=== PATIENT | female | born 2000 | race Caucasian/White ===

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

== ENCOUNTER 2022-01-11 20:00 | Emergency (ER) | payer OTHER, SELFPAY ==
--- NOTE | ~2022-01-11 | CT_ITS ---
EXAMINATION: CT BRAIN W/O DATE: 01/11/2022 20:59 INDICATION: Left frontal headache. Dizziness. Tinnitus. Eye blurriness. TECHNIQUE: Computed tomography (CT) of the head was performed without intravenous contrast. The dose- length product was 605.33 mGy-cm. Automated exposure control and iterative reconstruction technique w ere employed. COMPARISON: No prior studies for comparison. FINDINGS: Normal brain parenchymal volume for age. Normal pérez-white differentiation. No acute intrac ranial hemorrhage, infarction, mass or mass effect. No ventriculomegaly or midline shift. Midline sagittal images demonstrate a normal corpus callosum, c raniovertebral junction and sella turcica. Basilar cisterns are patent. Paranasal sinuses and mastoids are pneumatized. No depressed skull fractures. IMPRESSION: 1. No acute intracranial abnormality. Reviewed, dictated and finalized at location A.
[2022-01-11 20:14] VITALS: BP 109/82; PULSE 90; RESP 16; TEMP 36.4; O2SAT 98
--- NOTE | 2022-01-11 20:46 | ED.HA ---
HPI - Headache General Chief Complaint: Headache Stated Complaint: hit head with car door Time Seen by Provider: 01/11/22 20:04 Source: patient and RN notes reviewed Mode of arrival: ambulatory Limitations: no limitations History of Present Illness MD elicited complaint: headache Pertinent past history: recent trauma (hit left forehead with car door. no LOC, mild persistent HIRSCH , blurred vision left eye and ringing in the left ear) Onset (ago): hour(s) (5) Time: 14:00 Onset description: suddenly Location: left and frontal Severity: mild Pain scale (0-10): 6 Quality & Timing: dull Exacerbating factors: none Relieving factors: nothing Context: recent head injury Treatments prior to arrival: ibuprofen (200mg) Related Data Home Medications Medication Instructions Recorded Confirmed norethindrone 1 mg-ethinyl 1 tablet PO DAILY 04/06/21 01/11/22 estradiol 20 mcg (24)-iron 75 mg (4) tablet (Aurovela 24 Fe) Allergies Allergy/AdvReac Type Severity Reaction Status Date / Time cat dander Allergy Intermediate SNEEZE, Verified 01/11/22 20:13 ITCH, RASHES, EYES WATER, THROAT HURTS bee venom protein (honey bee) Allergy Anaphylactic Verified 01/11/22 20:13 Shock chocolate flavor AdvReac Migraine Verified 01/11/22 20:13 Review of Systems Review of Systems: All systems reviewed & are unremarkable except as noted in HPI and below Constitutional: Constitutional: Reports no additional constitutional complaints Eyes: Eyes: Reports no additional eye complaints ENT: Reports system reviewed and no additional complaints, except as documented Cardiovascular: Cardiovascular: Reports no additional cardiovascular complaints Respiratory: Respiratory: Reports no additional respiratory complaints Gastrointestinal: Gastrointestinal: Reports no additional gastrointestinal complaints Genitourinary: Genitourinary: Reports no additional female genitourinary complaints Musculoskeletal: Musculoskeletal: Reports no additional musculoskeletal complaints Integumentary/Breasts: Skin/Breast: Reports system reviewed and no additional complaints, except as docu Neurologic: Reports system reviewed and no additional complaints, except as documented Psychiatric: Psychiatric: Reports no additional psychiatric complaints Endocrine: Endocrine: Reports no additional endocrine complaints Hematologic/Lymphatic: Hematologic/Lymphatic: Reports no additional hematologic/lymphatic complaints Allergic/Immunologic: Allergic/Immunologic: Reports no additional allergic/immunologic complaints [facility] Past Medical History Medical History (Updated 07/10/22 @ 21:21 by Nita Sidhu MD) Anxiety Head injury Headache Left wrist sprain (normal spontaneous vaginal delivery) Scoliosis Toe fracture, right Wrist fracture, left (06/13/19) Surgical History Surgical History History of removal of skin mole lt temporal, June 2015 Family History Family History (Updated 12/25/21 @ 00:31 by Mable Mathis APRN) Other Diabetes mellitus No pertinent family history Social History Social History Smoking status: Former smoker Additional smoking assessment comments: Pt and significant other vaped. Significant other also stopped vaping 2-3 Alcohol intake: current Substance use: never Substance use type: does not use Gender identity (if verbalized by the patient): Female Spiritual care concerns: No Exam Const: General: healthy appearing and no acute distress Nutritional Appearance: well nourished Orientation/consciousness: patient oriented x3 Limitations: no limitations HENMT: Head: normal to inspection and hematoma (1/2 cm diameter hematoma left forehead, no discoloration. TMs were dull.) Ears: external ears normal, TM's abnormal bilaterally and EAC's normal Gene
--- NOTE | 2022-01-11 20:54 | PC.NURSE ---
pt declines medication because i'm not good at taking pills pt reminded that medication was to make her feel better
== END 2022-01-11 21:31 | disposition home or self-care (01) ==
PROVIDERS: Emergency Provider Emergency Medicine; PCP Family Medicine
DX: S09.90XA Unspecified injury of head, initial encounter (principal); R51.9 Headache, unspecified; W22.8XXA Striking against or struck by other objects, initial encounter
CPT/HCPCS: 70450; 99284

== ENCOUNTER 2022-01-22 11:53 | Emergency (ER) | payer OTHER, SELFPAY ==
[2022-01-22 12:01] VITALS: BP 110/74; PULSE 113; RESP 20; TEMP 37.6; O2SAT 98
--- NOTE | 2022-01-22 12:20 | ED.URI ---
HPI - URI/Sore Throat General Chief Complaint: Upper Respiratory Infection Stated Complaint: bodyache, chill,sore throat Time Seen by Provider: 01/22/22 12:05 Source: patient Mode of arrival: ambulatory Limitations: no limitations History of Present Illness HPI Narrative: Ms. Marcum is a 21-year-old female patient presenting to the clinic today with complaints of body aches, sore throat, chills, nasal congestion, and bilateral ear pain x1 day. She reports that she has had positive exposure to COVID. She has taken a COVID test this morning and it was negative at work. She feels as though she may have strep throat as she gets this frequently. MD elicited complaint: sore throat and nasal congestion Related Data Home Medications Medication Instructions Recorded Confirmed norethindrone 1 mg-ethinyl 1 tablet PO DAILY 04/06/21 01/22/22 estradiol 20 mcg (24)-iron 75 mg (4) tablet (Aurovela 24 Fe) Allergies Allergy/AdvReac Type Severity Reaction Status Date / Time cat dander Allergy Intermediate SNEEZE, Verified 01/22/22 12:01 ITCH, RASHES, EYES WATER, THROAT HURTS bee venom protein (honey bee) Allergy Anaphylactic Verified 01/22/22 12:01 Shock chocolate flavor AdvReac Migraine Verified 01/22/22 12:01 Review of Systems Review of Systems: Pertinent positives per HPI. Patient denies any fever, rash, headache, visual changes, dizziness, cough, shortness of breath, chest pain, palpitations, nausea, vomiting, diarrhea, constipation, abdominal pain, or any urinary issues. [facility] Past Medical History Medical History Anxiety Head injury Headache Left wrist sprain (normal spontaneous vaginal delivery) Scoliosis Toe fracture, right Wrist fracture, left (06/13/19) Surgical History Surgical History History of removal of skin mole lt temporal, June 2015 Family History Family History Other Diabetes mellitus No pertinent family history Social History Social History Smoking status: Former smoker Additional smoking assessment comments: Pt and significant other vaped. Significant other also stopped vaping 2-3 Alcohol intake: current Substance use: never Substance use type: does not use Gender identity (if verbalized by the patient): Female Spiritual care concerns: No Comments At the time of my signature, I reviewed and agree with the nursing past medical, surgical, social, and family history. There is no relevant family history pertinent to the patient complaint. Exam Narrative: General: Well-developed, well nourished, in no apparent distress Head: Normocephalic, atraumatic Eyes: Pupils equally round and reactive to light bilaterally, EOM intact, sclera and conjunctive clear, no discharge, lids normal Ears: TMs intact and dull, ear canals clear, no drainage, grossly hearing normal. Nose: Nares patent, clear nasal discharge, mild inflammation, no sinus tenderness. Mouth: Oral pharynx without lesions or masses, good dentition, MMM. Oropharynx mildly red, postnasal drip Neck: Supple, trachea midline, no enlargement of anterior or posterior cervical nodes, no thyroid masses or goiter palpable. Cardio: Regular rate and rhythm, s1 and s2 normal, no murmur appreciated. Resp: Clear to auscultation bilaterally, no rhonchi, rales, wheezing or rubs Course Course Emergency Course: Portions of this record may have been created with voice recognition software. Level of Care: Express Care Visit Vital Signs Vital signs: Vital Signs Temperature 37.6 C 01/22/22 12:01 Pulse Rate 113 H 01/22/22 12:01 Respiratory Rate 20 01/22/22 12:01 Blood Pressure 110/74 01/22/22 12:01 Pulse Oximetry 98
== END 2022-01-22 12:28 | disposition home or self-care (01) ==
PROVIDERS: Emergency Provider Nurse Practitioner Family; PCP Family Medicine
DX: J02.9 Acute pharyngitis, unspecified (principal); B34.9 Viral infection, unspecified; Z20.822 Contact with and (suspected) exposure to COVID-19; F17.290 Nicotine dependence, other tobacco product, uncomplicated; M41.9 Scoliosis, unspecified
CPT/HCPCS: 87081; 87880; 99213; G0463

== ENCOUNTER 2022-02-25 03:16 | Emergency (ER) | payer OTHER, SELFPAY ==
[2022-02-25 03:11] VITALS: BP 123/77; PULSE 113; RESP 18; TEMP 36.7; O2SAT 100
--- NOTE | 2022-02-25 03:45 | PC.NURSE ---
Patient stated to this RN, I need to be out of here by 0530 to be able to get home so that my boyfriend can get to work My chest pain has gone away I might just be seen by someone else later today/.
--- NOTE | 2022-02-25 03:49 | ECG_ITS ---
Measurements Intervals [place] Rate: 89 P: 31 RI: 132 QRS: 67 QRSD: 101 T: 25 QT: 354 QTc: 432 Interpretive Statements SINUS RHYTHM RSR' IN V1 OR V2, PROBABLY NORMAL VARIANT NONSPECIFIC T-WAVE ABNORMALITY BORDERLINE ECG NO PREVIOUS ECG AVAILABLE FOR COMPARISON Electronically Signed On 02-25-2022 16:04:59 CDT by Andres Ha M.D.
[2022-02-25 04:07] VITALS: PULSE 99
--- NOTE | 2022-02-25 04:23 | ED.CHESTPAIN ---
HPI - Chest Pain General Chief Complaint: Chest Pain Stated Complaint: heavy chest Time Seen by Provider: 02/25/22 04:23 Source: patient and EMS Mode of arrival: ambulatory Limitations: no limitations History of Present Illness HPI narrative: The patient is a 21-year-old female presenting to the emergency department for evaluation of chest pain. Patient states that she was watching videos on her phone this evening when she began to feel a burning sensation in her lower chest, with mild radiation into the left shoulder. Patient denies any pressure-like sensation, redness of breath or diaphoresis. Patient did experience some nausea, states that she went to the bathroom and made herself vomit which did help improve her symptoms. Patient denies any abdominal pain, flank pain, dysuria, hematuria. Patient states that she is not currently taking control although that is listed on her medication list. She denies unilateral leg swelling or calf pain. She denies recent long car or air travel or history of known symptomatic COVID infection. Patient denies history of coagulopathy. Patient states that her pain is now completely resolved. She is wishing to leave and does not wish to have any laboratory work-up obtained. Related Data Home Medications Medication Instructions Recorded Confirmed norethindrone 1 mg-ethinyl 1 tablet PO DAILY 04/06/21 01/22/22 estradiol 20 mcg (24)-iron 75 mg (4) tablet (Aurovela 24 Fe) Allergies Allergy/AdvReac Type Severity Reaction Status Date / Time cat dander Allergy Intermediate SNEEZE, Verified 01/22/22 12:01 ITCH, RASHES, EYES WATER, THROAT HURTS bee venom protein (honey bee) Allergy Anaphylactic Verified 01/22/22 12:01 Shock chocolate flavor AdvReac Migraine Verified 01/22/22 12:01 Review of Systems Review of Systems: CONSTITUTIONAL: Denies fever, chills, or sweats. EYES: Denies visual changes, redness, or discharge. ENT: Denies rhinorrhea, congestion, sore throat, or otalgia. CARDIOVASCULAR: Denies current chest pain, palpitations, or edema. RESPIRATORY: Denies cough or dyspnea. GASTROINTESTINAL: Denies abdominal pain, nausea, vomiting, or diarrhea. GENITOURINARY: Denies dysuria or hematuria. SKIN: Denies rash or itching. MUSCULOSKELETAL: Denies back pain, joint pain, or myalgia. NEUROLOGIC: Denies headache, numbness, or weakness. PSYCHIATRIC: Reports history of anxiety PMFSH Past Medical History Medical History Anxiety Head injury Headache Left wrist sprain (normal spontaneous vaginal delivery) Scoliosis Toe fracture, right Wrist fracture, left (06/13/19) Surgical History Surgical History History of removal of skin mole lt temporal, June 2015 Family History Family History Other Diabetes mellitus No pertinent family history Social History Social History Smoking status: Former smoker Additional smoking assessment comments: Pt and significant other vaped. Significant other also stopped vaping 2-3 Alcohol intake: current Substance use: never Substance use type: does not use Gender identity (if verbalized by the patient): Female Spiritual care concerns: No Exam Narrative: GENERAL: Awake, alert, conversant HEAD: Normocephalic, atraumatic. EYES: PERRLA and EOMI. ENT: Nares clear, no rhinorrhea or epistaxis. Mucous membranes moist. NECK: Supple. CHEST: No respiratory distress, breathing even and non labored, no chest wall tenderness, lungs are clear to auscultation bilaterally HEART: Regular rate, sinus rhythm ABDOMEN:Non distended, non tender EXTREMITIES: Normal range of motion. No edema. No calf tenderness, erythema bilaterally. SKIN: Warm, dry, no rash. NEURO:No focal deficits. Al
--- NOTE | 2022-02-25 04:44 | PC.NURSE ---
Pt insistent on leaving ED due to child being left at home alone within the hour. PT educated on risk and benefits by Dr. Brice prior to signing AMA paper work. Pt cooperative, A&Ox4, resp even non-labored. Pt denies pain or distress at this time. Pt verbalizes schedule appointment in am with PCP to f/u.
[2022-02-25 04:46] VITALS: BP 128/78; PULSE 87; RESP 12; TEMP 36.8; O2SAT 98
== END 2022-02-25 04:44 | disposition left against medical advice (07) ==
PROVIDERS: Emergency Provider Emergency Medicine; PCP Family Medicine
DX: R07.89 Other chest pain (principal); Z87.891 Personal history of nicotine dependence; R94.31 Abnormal electrocardiogram [ECG] [EKG]
CPT/HCPCS: 81025; 93005; 99284

== ENCOUNTER 2022-05-11 10:11 | Emergency (ER) | payer OTHER, SELFPAY ==
--- NOTE | ~2022-05-11 | XR_ITS ---
EXAMINATION: XR ankle LT min 3V DATE: 05/11/2022 10:30 INDICATION: Left ankle pain TECHNIQUE: Three views of the left ankle were obtained. COMPARISON: None. FINDINGS: There is no fracture, dislocation, or subluxation. The bones, soft tissues, and joint space s are normal. IMPRESSION: 1. No acute osseous abnormality. Reviewed, dictated and finalized at location B. AL SERVICE WINDOW CLERK
--- NOTE | ~2022-05-11 | XR_ITS ---
EXAMINATION: XR foot LT min 3V DATE: 05/11/2022 10:30 INDICATION: Left foot pain TECHNIQUE: Dorsoplantar, lateral, and oblique views of the left foot were obtained. COMPARISON: None. FINDINGS: There is no fracture, dislocation, or subluxation. The bones, soft tissues, and joint space s are normal. IMPRESSION: 1. No acute osseous abnormality. Reviewed, dictated and finalized at location B. LE SPINDLE SCREW MACHINE OPERATOR
[2022-05-11 10:19] VITALS: BP 105/72; PULSE 70; RESP 16; TEMP 37.3; O2SAT 100
--- NOTE | 2022-05-11 11:13 | ED.LOWEXIN ---
HPI - Extremity Injury (Lower) General Chief Complaint: Extremity Injury, Lower Stated Complaint: lt knee/foot injury Source: patient Mode of arrival: ambulatory Limitations: no limitations History of Present Illness HPI Narrative: 21 y/o female presented for c/o left ankle pain after injury yesterday. States she fell while walking up the stairs, causing her foot to bend backwards and she heard a 'pop.' She has taken ibuprofen and applied ice with minimal relief. Endorses feeling numbness to the foot and decreased ROM to the ankle due to pain. Denies significant bruising or swelling. Ambulating without difficulty but reports pain shooting up the leg. 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 She has not applied the boot. States she was instructed to get evaluated prior to the ortho appt. Related Data Home Medications Medication Instructions Recorded Confirmed norethindrone 1 mg-ethinyl 1 tablet PO DAILY 04/06/21 01/22/22 estradiol 20 mcg (24)-iron 75 mg (4) tablet (Aurovela 24 Fe) Allergies Allergy/AdvReac Type Severity Reaction Status Date / Time cat dander Allergy Intermediate SNEEZE, Verified 03/05/22 10:50 ITCH, RASHES, EYES WATER, THROAT HURTS bee venom protein (honey bee) Allergy Anaphylactic Verified 03/05/22 10:50 Shock chocolate flavor AdvReac Migraine Verified 03/05/22 10:50 Review of Systems Review of Systems: CONSTITUTIONAL: Denies body aches, fever, chills CARDIOVASCULAR: Denies chest pain, palpitations, or edema. RESPIRATORY: Denies cough or dyspnea. MUSCULOSKELETAL:per HPI NEUROLOGIC: Denies headache, numbness, tingling, or weakness. All systems reviewed & are unremarkable except as noted in HPI and below PMFSH Past Medical History Medical History Anxiety Head injury Headache Left wrist sprain (normal spontaneous vaginal delivery) Scoliosis Toe fracture, right Wrist fracture, left (06/13/19) Surgical History Surgical History History of removal of skin mole lt June 2015 Family History Family History Other Diabetes mellitus No pertinent family history Social History Social History Smoking status: Former smoker Additional smoking assessment comments: Pt and significant other vaped. Significant other also stopped vaping 2-3 Alcohol intake: current Substance use: never Substance use type: does not use Gender identity (if verbalized by the patient): Female Spiritual care concerns: No Comments At time of signature, I have reviewed and agree with nursing past medical, surgical, social and family history unless otherwise noted. Please see nursing chart for further information. There is no relevant family history pertinent to the presenting complaint Exam Narrative: GENERAL: Well-appearing, well-nourished, and in no acute distress. CHEST: Speaks in full sentences. No respiratory distress. HEART: Regular rate and rhythm. Normal and equal peripheral pulses. EXTREMITIES: Left ankle TTP anterior/dorsal aspect. Left foot has decreased sensation with 2 point discrimination to plantar surface at MTP site and toes; limited active ankle range of motion due to reports of pain. No edema or ecchymosis. No open wounds or obvious deformity; pulse palpable and equal bilaterally, skin warm, dry, pink. Capillary refill less than 3 seconds. SKIN: Warm, dry, no rash. NEURO: Alert and oriented x3. Course Course Emergency Course: Patient is aware of diagnosis, understands and agrees to treatment plan. Anticipatory guidance given. Patient agrees to follow-up as directed and is aware of reasons to seek car
== END 2022-05-11 11:29 | disposition home or self-care (01) ==
PROVIDERS: Emergency Provider Nurse Practitioner Family; PCP Family Medicine
DX: M25.572 Pain in left ankle and joints of left foot (principal); M41.9 Scoliosis, unspecified; Z87.891 Personal history of nicotine dependence
CPT/HCPCS: 73610; 73630; 99213; G0463

== ENCOUNTER 2022-10-19 11:33 | Emergency (ER) | payer OTHER, SELFPAY ==
--- NOTE | ~2022-10-19 | CT_ITS ---
CT of the Abdomen and Pelvis: Indication: Abdominal pain Technique: 2.5 mm axial scans were obtained through the abdomen and pelvis following intravenous adm inistration of 100 cc of Omnipaque 350. Dose reduction technique was used on this scan by utilizing a utomated exposure control and iterative reconstruction technique. The dose-length product (DLP) was 2 89.17 mGy-cm. Findings: Scans through the lung bases are unremarkable. The liver, spleen, pancreas, gallbladder, adrenals and kidneys are within normal limits. No evidence of aortic aneurysm. No lymphadenopathy. Questionable mild large bowel wall thickening. No bowel obstruction. No abscess or free air. Images through the pelvis were performed. Urinary bladder unremarkable. No adnexal mass evident. No a scites. Impression: Questionable mild large bowel wall thickening. Correlate for underdistention versus any possibility o f infectious/inflammatory colitis. Reviewed, dictated and finalized at [facility]. Impression: Questionable mild large bowel wall thickening. Correlate for underdistention ve rsus any possibility of infectious/inflammatory colitis.
[2022-10-19 11:43] VITALS: BP 119/92; PULSE 104; RESP 16; TEMP 36.8; O2SAT 100
[2022-10-19 12:10] LABS: Basophils Absolute Auto 0.1 K/mm3 (0.0-0.1); Basophils Percent Auto 0.4 % (0.2-1.2); Eosinophils Percent Auto 0.1 % (0-4.4); Hematocrit 45.9 % (37.0-47.0); Hemoglobin 15.8 g/dL (12.0-15.0); Immature Granulocyte Absolute 0.12 K/mm3 (0.00-0.031); Immature Granulocyte Percent A 0.6 % (0-0.5); Lymphocytes Absolute Auto 1.01 K/mm3 (0.9-3.2); Lymphocytes Percent Auto 4.7 % (18.3-44.2); Mean Corpuscular HGB Conc 34.4 g/dl (32-36); Mean Corpuscular Hemoglobin 28.8 pg (26-34); Mean Corpuscular Volume 83.6 fl (80-100); Mean Platelet Volume 11.1 fl (7.4-10.4); Monocytes Absolute Auto 1.1 K/mm3 (0.1-0.6); Monocytes Percent Auto 4.9 % (2.6-8.5); Neutrophils Absolute Auto 19.1 K/mm3 (1.3-6.7); Neutrophils Percent Auto 89.3 % (45.5-73.1); Platelet Count Result 288 k/mm3 (150-375); Red Blood Count 5.49 M/mm3 (4.2-5.4); Red Cell Distribution Width 13.2 % (11.5-14.5); White Blood Count 21.4 K/mm3 (4.5-10.0)
[2022-10-19 12:14] LABS: Appearance Urine Clear (Clear); Bacteria Urine None Seen /hpf; Bilirubin Urine Negative (Negative); Blood Urine Negative (Negative); Color Urine Yellow (Yellow); Glucose Urine UA Negative (Negative); Ketones Urine Negative (Negative); Leukocyte Esterase Ur Trace LEU/UL (Negative); Nitrate Urine Negative (Negative); Non Pathogenic Casts 0-2; Protein Urine Negative (Negative); RBC Urine 0-2 /hpf (0-2); Specific Grav Ur 1.024 (1.001-1.035); Squamous Epithelial Cell Urine None seen /hpf (Few); WBC Urine 0-5 /hpf; pH Urine 6.5 (5.0-9.0)
[2022-10-19 12:24] LABS: Alanine Aminotransferase 24 U/L (6-35); Alkaline Phosphatase 84 U/L (38-126); Anion Gap 6 mmol/L (8-16); Aspartate Amino Transferase 25 U/L (14-36); Bilirubin,Total 0.9 mg/dL (0.2-1.3); Blood Urea Nitrogen 10 mg/dL (7-17); Calcium 9.2 mg/dL (8.4-10.2); Carbon Dioxide 30 mmol/L (22-30); Chloride 102 mmol/L (98-107); Estimated CRCL calculation 105 ml/min; Estimated Glomerular Filt Rate > 60; Glucose 102 mg/dL (65-110); Lipase 122 U/L (23-300); Potassium 3.7 mmol/L (3.4-5.0); Sodium 138 mmol/L (137-145)
[2022-10-19 12:27] LABS: Add Urine Microscopic? YES
[2022-10-19] MEDS: SODIUM CHLORIDE 0.9% IV 2,000 ML 999 ML IV CONT (12:48)
[2022-10-19] MEDS: ONDANSETRON INJ 4 MG/2 ML VIAL IV PUSH ×2 (12:48→15:13)
--- NOTE | 2022-10-19 13:45 | ED.NAVMDI ---
HPI - Nausea/Vomiting/Diarrhea General Chief complaint: Nausea/Vomiting/Diarrhea Stated complaint: N/V/D Time Seen by Provider: 10/19/22 12:15 Source: patient Mode of arrival: ambulatory Limitations: no limitations History of Present Illness HPI Narrative: Patient is 22 years old white female drove herself to the emergency room because of sudden onset of nausea, vomiting and diarrhea. Patient reports vomiting maximum 6 time, diarrhea maximum 3 times started last night. She denies any fever, chills, abdominal pain, urinary symptoms, vaginal bleeding or discharge. Patient denied sick contact. Patient works cleaning houses. She denies smoking, drinking or using drugs. Related Data Home Medications Medication Instructions Recorded Confirmed norethindrone 1 mg-ethinyl 1 tablet PO DAILY 04/06/21 05/12/22 estradiol 20 mcg (24)-iron 75 mg (4) tablet (Aurovela 24 Fe) Allergies Allergy/AdvReac Type Severity Reaction Status Date / Time cat dander Allergy Intermediate SNEEZE, Verified 10/19/22 11:52 ITCH, RASHES, EYES WATER, THROAT HURTS bee venom protein (honey bee) Allergy Anaphylactic Verified 10/19/22 11:52 Shock chocolate flavor AdvReac Migraine Verified 10/19/22 11:52 Review of Systems Review of Systems: All systems reviewed & are unremarkable except as noted in HPI and below PMFSH Past Medical History Medical History Anxiety Head injury Headache Left wrist sprain (normal spontaneous vaginal delivery) Other sprain of left foot, initial encounter Scoliosis Toe fracture, right Wrist fracture, left (06/13/19) Surgical History Surgical History History of removal of skin mole lt June 2015 Family History Family History Other Diabetes mellitus No pertinent family history Social History Social History Smoking status: Former smoker Additional smoking assessment comments: Pt and significant other vaped. Significant other also stopped vaping 2-3 Alcohol intake: current Substance use: never Substance use type: does not use Gender identity (if verbalized by the patient): Female Spiritual care concerns: No Exam Narrative: General appearance: Well-developed, well-nourished Skin: Normal color Head: Normocephalic, nontraumatic Eyes: Clear conjunctiva ENT: Oropharynx normal, ears normal, nose normal Neck: Supple, nontender Chest and respiratory: Airway patent, no respiratory distress, no accessory muscle use Heart: Regular rate/rhythm Abdomen: Soft, nontender, no organomegaly, quiet bowel sounds Vascular: Normal peripheral pulses, normal capillary refill. Musculoskeletal: Normal range of motion, nontender back Neurologic: Alert and oriented ?3, MANAGER DOCUMENT is normal as tested, no gross motor deficit Course Reevaluation(s) Reevaluation #1: Patient received 2 L of normal saline, Zofran IV, currently feeling much better and was able to give fluids and crackers down. Date: 10/19/22 Time: 14:05 Vital Signs Vital signs: Vital Signs Temperature 36.8 C 10/19/22 11:43 Pulse Rate 104 H 10/19/22 11:43 Respiratory Rate 16 10/19/22 11:43 Blood Pressure 119/92 H 10/19/22 11:43 Pulse Oximetry 100 10/19/22 11:43 Oxygen Delivery Room Air 10/19/22 11:43 Temperature 36.8 C 10/19/22 11:43 Pulse Rate 104 H 10/19/22 11:43 Respiratory Rate 16 10/19/22 11:43 Blood Pressure 119/92 H 10/19/22 11:43 Pulse Oximetry 100 10/19/22 11:43 Oxyg
== END 2022-10-19 15:22 | disposition home or self-care (01) ==
PROVIDERS: Emergency Medicine; Emergency Provider Emergency Medicine; PCP Family Medicine
DX: K52.9 Noninfective gastroenteritis and colitis, unspecified (principal); Z87.891 Personal history of nicotine dependence
CPT/HCPCS: 36415; 74177; 80053; 81001; 81025; 83690; 85025; 96361; 96374; 96375; 99284; J2405; J7030; Q9967

== ENCOUNTER 2022-10-27 19:23 | Emergency (ER) | payer OTHER, SELFPAY ==
--- NOTE | ~2022-10-27 | CT_ITS ---
EXAMINATION: CT abdomen pelvis w con DATE: 10/27/2022 22:44 INDICATION: LLQ abd pain, N/V/D TECHNIQUE: Computed tomography (CT) of the abdomen and pelvis was performed with 100 mL Omnipaque-350 intravenous contrast. Automated exposure control and iterative reconstruction technique were employe d. The dose-length product was 279.21 mGy-cm. COMPARISON: 10/19/2022. FINDINGS: Lower thorax: Mild dependent atelectasis Liver: Normal. Biliary/Gallbladder: Gallbladder is normal. No bile duct dilation. Pancreas: No mass or duct dilation. Spleen: Normal. Adrenals:No mass. Kidneys: No mass, stone, or hydronephrosis. GI tract: Mild distal esophageal and gastric wall edema. No small or large bowel dilation. Normal robson endix. Mesentery/Peritoneum: No ascites, mass, or free air. Retroperitoneum: No mass. Pelvis: Pelvic organs are within normal limits. Soft Tissues: Soft tissues and body wall unremarkable. Bones: No acute osseous finding. IMPRESSION: Mild esophagitis/gastritis. Otherwise, no acute abdominal pelvic process detected Reviewed, dictated and finalized at location K. IMPRESSION: Mild esophagitis/gastritis. Otherwise, no acute abdominal pelvic process detect ed
[2022-10-27 19:51] VITALS: BP 108/75; PULSE 85; RESP 16; TEMP 36.7; O2SAT 100
[2022-10-27 20:16] LABS: Basophils Absolute Auto 0.1 K/mm3 (0.0-0.1); Basophils Percent Auto 0.5 % (0.2-1.2); Eosinophils Absolute Auto 0.1 K/mm3 (0-0.3); Eosinophils Percent Auto 0.6 % (0-4.4); Hematocrit 43.9 % (37.0-47.0); Immature Granulocyte Absolute 0.08 K/mm3 (0.00-0.031); Immature Granulocyte Percent A 0.6 % (0-0.5); Lymphocytes Absolute Auto 3.26 K/mm3 (0.9-3.2); Lymphocytes Percent Auto 24.2 % (18.3-44.2); Mean Corpuscular HGB Conc 34.2 g/dl (32-36); Mean Corpuscular Hemoglobin 29.2 pg (26-34); Mean Corpuscular Volume 85.4 fl (80-100); Mean Platelet Volume 10.9 fl (7.4-10.4); Monocytes Absolute Auto 0.8 K/mm3 (0.1-0.6); Monocytes Percent Auto 5.7 % (2.6-8.5); Neutrophils Absolute Auto 9.2 K/mm3 (1.3-6.7); Neutrophils Percent Auto 68.4 % (45.5-73.1); Platelet Count Result 332 k/mm3 (150-375); Red Blood Count 5.14 M/mm3 (4.2-5.4); Red Cell Distribution Width 13.2 % (11.5-14.5); White Blood Count 13.5 K/mm3 (4.5-10.0)
[2022-10-27 20:49] LABS: Alanine Aminotransferase 31 U/L (6-35); Albumin Level 4.8 g/dL (3.5-5.1); Alkaline Phosphatase 72 U/L (38-126); Anion Gap 8 mmol/L (8-16); Aspartate Amino Transferase 30 U/L (14-36); Bilirubin,Total 0.4 mg/dL (0.2-1.3); Blood Urea Nitrogen 9 mg/dL (7-17); Calcium 9.6 mg/dL (8.4-10.2); Carbon Dioxide 30 mmol/L (22-30); Chloride 102 mmol/L (98-107); Estimated Glomerular Filt Rate > 60; Glucose 80 mg/dL (65-110); Lipase 111 U/L (23-300); Potassium 3.9 mmol/L (3.4-5.0); Sodium 140 mmol/L (137-145)
[2022-10-27 21:06] LABS: Appearance Urine Cloudy (Clear); Bacteria Urine Rare /hpf; Bilirubin Urine Negative (Negative); Blood Urine Negative (Negative); Color Urine Yellow (Yellow); Glucose Urine UA Negative (Negative); Ketones Urine Negative (Negative); Leukocyte Esterase Ur Negative LEU/UL (Negative); Nitrate Urine Negative (Negative); Non Pathogenic Casts 0-2; Protein Urine Negative (Negative); RBC Urine 0-2 /hpf (0-2); Specific Grav Ur 1.023 (1.001-1.035); Squamous Epithelial Cell Urine Moderate /hpf (Few); WBC Urine 0-5 /hpf
[2022-10-27 21:10] LABS: Add Urine Microscopic? YES
--- NOTE | 2022-10-27 21:59 | ED.NAVMDI ---
HPI - Nausea/Vomiting/Diarrhea General Chief complaint: Nausea/Vomiting/Diarrhea <DARLENE Georges Last Filed: 10/28/22 00:39> Stated complaint: vomiting <DARLENE Georges Last Filed: 10/28/22 00:39> Time Seen by Provider: 10/27/22 21:46 <DARLENE Georges Last Filed: 10/28/22 00:39> Source: patient and old records reviewed <DARLENE Georges Last Filed: 10/28/22 00:39> Mode of arrival: ambulatory <DARLENE Georges Last Filed: 10/28/22 00:39> Limitations: no limitations <DARLENE Georges Last Filed: 10/28/22 00:39> History of Present Illness HPI Narrative: Patient is a 22 y/o female who presents to the ED with c/o nausea and vomiting. Patient reports she first experienced N/V/D on October 03. Symptoms lasted for a few days before improving, then recurred a week or so later. She was seen in the ED on 10/19 and diagnosed with gastroenteritis. CT scan of abdomen pelvis at that time did not show any concerning findings. Patient was discharged with Zofran and GI follow-up. Patient developed nausea and vomiting again this afternoon. She reported having 6 episodes of NB NB emesis at home, which prompted her presentation. Denied improvement with Zofran. Patient has not followed up with her primary care doctor or GI. She does also report having diarrhea today and pain in her left lower abdomen. She denied having abdominal pain with her other episodes of N/V/D. Denies any fevers, urinary sx's, rectal bleeding, melena, back or flank pain, cough or cold sx's. <DARLENE Georges Last Filed: 10/28/22 00:39> Related Data Home medications: Home Medications Medication Instructions Recorded Confirmed norethindrone 1 mg-ethinyl 1 tablet PO DAILY 04/06/21 05/12/22 estradiol 20 mcg (24)-iron 75 mg (4) tablet (Aurovela 24 Fe) <Brenda Conley PA-C - Last Filed: 10/28/22 00:39> Allergies/Adverse reactions: Allergies Allergy/AdvReac Type Severity Reaction Status Date / Time cat dander Allergy Intermediate SNEEZE, Verified 10/19/22 11:52 ITCH, RASHES, EYES WATER, THROAT HURTS bee venom protein (honey bee) Allergy Anaphylactic Verified 10/19/22 11:52 Shock chocolate flavor AdvReac Migraine Verified 10/19/22 11:52 <Brenda Conley PA-C - Last Filed: 10/28/22 00:39> Review of Systems Review of Systems: CONSTITUTIONAL: Denies fever, chills, or sweats. ENT: Denies rhinorrhea, congestion, sore throat. CARDIOVASCULAR: Denies chest pain. RESPIRATORY: Denies cough or dyspnea. GASTROINTESTINAL: See HPI. GENITOURINARY: Denies dysuria or hematuria. MUSCULOSKELETAL: See HPI. <Brenda Conley PA-C - Last Filed: 10/28/22 00:39> All systems reviewed & are unremarkable except as noted in HPI and below <Brenda Conley PA-C - Last Filed: 10/28/22 00:39> [facility] Past Medical History Medical History: Medical History Anxiety Head injury Headache Left wrist sprain (normal spontaneous vaginal delivery) Other sprain of left foot, initial encounter Scoliosis Toe fracture, right Wrist fracture, left (06/13/19) <Brenda Conley PA-C - Last Filed: 10/28/22 00:39> Surgical History Surgical History: Surgical History History of removal of skin mole lt , June 2015 <Brenda Conley PA-C - Last Filed: 10/28/22 00:39> Family History Family History: Family History Other Diabetes mellitus No pertinent family history <Brenda Conley PA-C - Last Filed: 10/28/22 00:39> Social History Social History: Social History Smoking status: Former smoker [place]
[2022-10-27] MEDS: SODIUM CHLORIDE 0.9% IV 1,000 ML 999 ML IV CONT ×2 (22:31→23:18)
[2022-10-27] MEDS: PANTOPRAZOLE SODIUM IV 40 MG VIAL IV PUSH (22:31)
[2022-10-27] MEDS: ONDANSETRON INJ 4 MG/2 ML VIAL IV PUSH (22:31)
[2022-10-27] MEDS: DICYCLOMINE HCL 10 MG CAPSULE 20 MG PO (23:11)
[2022-10-27 23:58] VITALS: BP 107/73; PULSE 67; RESP 14; O2SAT 98
[2022-10-28 01:13] VITALS: BP 100/65; PULSE 60; RESP 15; O2SAT 100
== END 2022-10-28 01:15 | disposition home or self-care (01) ==
PROVIDERS: Emergency Provider Physician Assistant; PCP Family Medicine
DX: R11.2 Nausea with vomiting, unspecified (principal); K29.70 Gastritis, unspecified, without bleeding; F41.9 Anxiety disorder, unspecified
CPT/HCPCS: 36415; 74177; 80053; 81001; 81025; 83690; 85025; 96360; 96361; 96365; 96375; 99284; A9270; C9113; J0131; J2405; J7030; Q9967

== ENCOUNTER 2022-11-23 01:45 | Day surgery (SDC) | payer OTHER, SELFPAY ==
[2022-11-10 08:49] VITALS: BMI 26.6
[2022-11-23 11:39] VITALS: BP 113/79; PULSE 88; RESP 18; TEMP 36.2; O2SAT 100
[2022-11-23] MEDS: LACTATED RINGERS 1,000 ML 150 ML IV CONT (11:58)
--- NOTE | 2022-11-23 12:11 | WPDHPUPDATE1 ---
History and Physical Update Update Date/Time: 11/23/22 12:11 History and Physical has been reviewed, including an updated exam of the patient. There are NO changes in the patient's condition. Risks, benefits, and alternatives have been discussed and questions answered. Patient agrees to proceed with procedure.
--- NOTE | 2022-11-23 12:38 | WPDANESEPPF ---
Anes - Initial Pre Proc Eval Procedure: Operation Date: 11/23/22 12:30 Proposed Procedures p Esophagogastroduodenoscopy - Melvin Farnsworth MD Date/Time: 11/23/22 12:38 Surgeon: Melvin Farnsworth MD Pre Op Diagnosis: N&V, abnormal findings on diagnostic imaging Patient Data Age: 22 Gender: F Height: 1.57 m Weight: 64.5 kg Last Vital Signs Temp 97.1 F L 11/23/22 11:39 Pulse 88 11/23/22 11:39 Resp 18 11/23/22 11:39 BP 113/79 11/23/22 11:39 Pulse Ox 100 11/23/22 11:39 O2 Del Method Room Air 11/23/22 11:39 Allergies Allergy/AdvReac Type Severity Reaction Status Date / Time cat dander Allergy Intermediate SNEEZE, Verified 11/23/22 11:38 ITCH, RASHES, EYES WATER, THROAT HURTS bee venom protein (honey bee) Allergy Anaphylactic Verified 11/23/22 11:38 Shock chocolate flavor AdvReac Migraine Verified 11/23/22 11:38 Home Medications Medication Instructions Recorded Confirmed Type norethindrone 1 mg-ethinyl 1 tablet PO DAILY 04/06/21 11/10/22 History estradiol 20 mcg (24)-iron 75 mg (4) tablet (Aurovela 24 Fe) ondansetron HCl 4 mg tablet 4 mg PO Q4H 3 doses #10 tabs 10/19/22 11/10/22 Rx dicyclomine 20 mg tablet 20 mg PO TID PRN Abdominal 10/28/22 11/10/22 Rx Discomfort #15 tabs omeprazole 10 mg capsule,delayed 10 mg PO DAILY #30 caps 10/28/22 11/10/22 Rx release Patient hx anesthesia problems: none Family hx anesthesia problems: none Results Review: All pre-operative results and documents have been reviewed as part of the pre-operative evaluation. [facility] Past Medical History Medical History (Updated 11/04/22 @ 15:19 by PRINCE BurgerN-Antonio) Abnormal CT scan Anxiety Head injury Headache Left wrist sprain Nausea and vomiting (normal spontaneous vaginal delivery) Other sprain of left foot, initial encounter Scoliosis Toe fracture, right Wrist fracture, left (06/13/19) Surgical History Surgical History History of removal of skin mole lt , June 2015 Family History Family History Other Diabetes mellitus No pertinent family history Social History Social History Smoking status: Former smoker Tobacco type: e-cigarettes/vaping Additional smoking assessment comments: Pt and significant other vaped. Significant other also stopped vaping 2-3 Alcohol intake: never Substance use: never Substance use type: does not use Living arrangements: alone Gender identity (if verbalized by the patient): Female Spiritual care concerns: No Anes - Eval Final PreProcedure Day of Procedure 11/23/22 12:38 Patient weight: normal Heart: regular rate and rhythm Lungs: clear to auscultation Airway: Mallampati scale class II Neurological: alert and oriented Last oral intake: >/= 8 hours ASA classification: II Emergent: no Anesthetic plan: proceed Anesthesia type and monitoring: general GIVS and standard monitoring Results Review: All pre-operative results and documents have been reviewed as part of the pre-operative evaluation. Informed Consent: The patient's anesthetic plan and its attendant risks and benefits were discussed with the patient/family/POA. Questions were solicited and answers provided to the satisfaction of the patient/family/POA.
[2022-11-23 13:54] VITALS: BP 97/63; PULSE 74; RESP 18; O2SAT 98
[2022-11-23 14:04] VITALS: BP 107/73; PULSE 61; RESP 19; O2SAT 100
[2022-11-23 14:14] VITALS: BP 107/74; PULSE 66; RESP 20; O2SAT 100
== END 2022-11-23 14:24 | disposition home or self-care (01) ==
PROVIDERS: PCP Family Medicine; Visit Provider Internal Medicine Gastroenterology
PROC: 0DJ08ZZ Inspection of Upper Intestinal Tract, Via Natural or Artificial Opening Endoscopic (ICD-10-PCS; CPT 43235; principal; 2022-11-23 12:30)
DX: R11.2 Nausea with vomiting, unspecified (principal); R93.89 Abnormal findings on diagnostic imaging of other specified body structures; R10.32 Left lower quadrant pain; R19.7 Diarrhea, unspecified; Z87.891 Personal history of nicotine dependence
CPT/HCPCS: 43239; 87081; J2704; J7120

== ENCOUNTER 2022-11-25 09:36 | Emergency (ER) | payer OTHER, SELFPAY ==
[2022-11-25 09:54] VITALS: BP 105/73; PULSE 82; RESP 16; TEMP 36.4; O2SAT 100
--- NOTE | 2022-11-25 09:57 | ED.URI ---
HPI - URI/Sore Throat General Chief Complaint: Upper Respiratory Infection Stated Complaint: SORE THROAT/BODY ACHES/MUCUS/STREP EXPOSURE Time Seen by Provider: 11/25/22 09:57 Source: patient Mode of arrival: ambulatory Limitations: no limitations History of Present Illness HPI Narrative: 22-year-old female presents with complaint of sore throat, body aches, nausea vomiting, headaches, chills, fever for the past 4 days. Taking xepd-[id number]-[id number] medications to treat her symptoms. Patient reports strep exposure from her daughter. All systems reviewed and negative except as noted above. Related Data Home Medications Medication Instructions Recorded Confirmed norethindrone 1 mg-ethinyl 1 tablet PO DAILY 04/06/21 11/25/22 estradiol 20 mcg (24)-iron 75 mg (4) tablet (Aurovela 24 Fe) dicyclomine 10 mg capsule 10 mg PO DAILY 11/25/22 11/25/22 Allergies Allergy/AdvReac Type Severity Reaction Status Date / Time cat dander Allergy Intermediate SNEEZE, Verified 11/25/22 10:08 ITCH, RASHES, EYES WATER, THROAT HURTS bee venom protein (honey bee) Allergy Anaphylactic Verified 11/25/22 10:08 Shock chocolate flavor AdvReac Migraine Verified 11/25/22 10:08 Review of Systems Review of Systems: CONSTITUTIONAL: Reports fever, chills, or sweats. EYES: Denies visual changes, redness, or discharge. ENT: Denies rhinorrhea, congestion. Reports sore throat. Denies otalgia. CARDIOVASCULAR: Denies chest pain, palpitations, or edema. RESPIRATORY: Denies cough or dyspnea. GASTROINTESTINAL: Denies abdominal pain, vomiting, or diarrhea. Reports nausea. GENITOURINARY: Denies dysuria or hematuria. SKIN: Denies rash or itching. MUSCULOSKELETAL: Denies back pain, joint pain, or myalgia. NEUROLOGIC: Denies headache, numbness, or weakness. PSYCHIATRIC: Denies anxiety or depression. All other systems reviewed are negative, except as documented in HPI. [facility] Past Medical History Medical History (Updated 11/25/22 @ 10:09 by Bee Tabares NP) Abnormal CT scan Anxiety Head injury Headache Left wrist sprain Nausea and vomiting (normal spontaneous vaginal delivery) Other sprain of left foot, initial encounter Scoliosis Toe fracture, right Wrist fracture, left (06/13/19) Surgical History Surgical History History of removal of skin mole lt temporal, June 2015 Family History Family History Other Diabetes mellitus No pertinent family history Social History Social History Smoking status: Former smoker Tobacco type: e-cigarettes/vaping Additional smoking assessment comments: Pt and significant other vaped. Significant other also stopped vaping 2-3 Alcohol intake: never Substance use: never Substance use type: does not use Living arrangements: alone Gender identity (if verbalized by the patient): Female Spiritual care concerns: No Comments At time of signature, agree with nursing past medical, surgical, social and family history. There is no relevant family history pertinent to the presenting complaint. Exam Narrative: GENERAL: This is a well-nourished, well-developed patient, in no apparent distress. HEAD: normocephalic, atraumatic. EYES: PERRL. Sclera clear/white. Vision is grossly intact. EARS: External ears normal, auditory canals clear and without drainage, TMs normal without perforation. Hearing grossly intact. NOSE: External nose normal with no obvious nasal discharge, nares without redness, no rhinorrhea. THROAT: Mucous membranes moist, erythematous and swelling to posterior pharynx without tonsillar exudates. NECK: Neck supple, non-tender without lymphadenopathy, masses or thyromegaly. CARDIOVASCULAR: Regular rate and rhythm without murmurs, gallops, or rubs. RESPIRA
== END 2022-11-25 10:13 | disposition home or self-care (01) ==
PROVIDERS: Emergency Provider Nurse Practitioner Family; PCP Family Medicine
DX: J02.8 Acute pharyngitis due to other specified organisms (principal); Z20.818 Contact with and (suspected) exposure to other bacterial communicable diseases; Z87.891 Personal history of nicotine dependence; M41.9 Scoliosis, unspecified
CPT/HCPCS: 87081; 87880; 99213; G0463

== ENCOUNTER 2022-12-20 11:20 | Emergency (ER) | payer OTHER, SELFPAY ==
[2022-12-20 11:35] VITALS: BP 105/71; PULSE 67; RESP 16; TEMP 36.4; O2SAT 99
--- NOTE | 2022-12-20 11:43 | ED.URI ---
HPI - URI/Sore Throat General Chief Complaint: Upper Respiratory Infection Stated Complaint: SORE THROAT/SWOLLEN TONSILS Time Seen by Provider: 12/20/22 11:43 Source: patient, RN notes reviewed and old records reviewed Mode of arrival: ambulatory Limitations: no limitations History of Present Illness HPI Narrative: 22 year old female who presents to [facility] care with complaints of sore throat since yesterday with complaints of throat feeling swollen with painful swallowing. Patient reports that her ENT rold her that she would benefit from having tonsils removed. Patient reports no fever, does state some cough and also some runny nose. Patient reports that she has been taking Benadryl for her symptoms MD elicited complaint: cough and sore throat Pertinent past history: other (allergies) Onset (ago): day(s) (day 2 of symptoms) Consistency: constant Pain scale (0-10): 4 Able to tolerate fluids by mouth: Yes Exacerbating factors: swallowing Treatments prior to arrival: other (Benadryl) Related Data Home Medications Medication Instructions Recorded Confirmed dicyclomine 10 mg capsule 10 mg PO DAILY PRN upset stomach 11/25/22 12/20/22 omeprazole 10 mg capsule,delayed 10 mg PO DAILY PRN Acid Reflux 12/15/22 12/20/22 release epinephrine 0.3 mg/0.3 mL 0.3 mg IM PRN PRN Anaphylaxis 12/20/22 12/20/22 injection, auto-injector Allergies Allergy/AdvReac Type Severity Reaction Status Date / Time cat dander Allergy Intermediate SNEEZE, Verified 12/20/22 11:32 ITCH, RASHES, EYES WATER, THROAT HURTS bee venom protein (honey bee) Allergy Anaphylactic Verified 12/20/22 11:32 Shock chocolate flavor AdvReac Migraine Verified 12/20/22 11:32 Review of Systems Review of Systems: CONSTITUTIONAL: Denies malaise, chills, sweats, or fever. EYES: Denies visual changes, redness, or discharge. ENT: Reports rhinorrhea, congestion,no sinus pain, no otalgia and positive for sore throat. CARDIOVASCULAR: Denies chest pain, palpitations, or edema. RESPIRATORY: Reports cough.? Denies dyspnea. GASTROINTESTINAL: Denies abdominal pain, nausea, vomiting, diarrhea SKIN: Denies rash or itching. MUSCULOSKELETAL: Denies myalgia. NEUROLOGIC: Denies headache. All systems reviewed & are unremarkable except as noted in HPI and below PMFSH Past Medical History Medical History (Updated 12/21/22 @ 00:00 by Eugene Ervin) Abnormal CT scan Anxiety Anxiety Head injury Headache Left wrist sprain Nausea and vomiting (normal spontaneous vaginal delivery) Other sprain of left foot, initial encounter Scoliosis Toe fracture, right Tonsil pain Wrist fracture, left (06/13/19) Surgical History Surgical History (System 12/09/22 @ 13:22 by Rosalva Glover) History of removal of skin mole lt temporal, June 2015 Family History Family History Other Diabetes mellitus No pertinent family history Social History Social History (System 12/09/22 @ 13:22 by Rosalva Glover) Social History: Caffeine-daily Smoking status: Never smoker Tobacco type: e-cigarettes/vaping Second hand tobacco smoke exposure: No Additional smoking assessment comments: Pt and significant other vaped. Significant other also stopped vaping 2-3 Alcohol intake: never Substance use: current Substance use type: marijuana Last use: 12/13/2022 Living arrangements: with family Gender identity (if verbalized by the patient): Female Spiritual care concerns: No Comments At time of signature, agree with nursing past medical, surgical, social and family history. There is no relevant family history pertinent to the presenting complaint Exam Narrative: GENERAL: Well-appearing, well-nourished, and in no acute distress. HEAD: Normocephalic EYES: PERRLA, conjunctivae clear ENT: Nares clear, turbinates edematous and erythematous, jeff
== END 2022-12-20 12:02 | disposition home or self-care (01) ==
PROVIDERS: Emergency Provider Registered Nurse; PCP Family Medicine
DX: J03.90 Acute tonsillitis, unspecified (principal); F12.90 Cannabis use, unspecified, uncomplicated; M41.9 Scoliosis, unspecified
CPT/HCPCS: 87081; 87880; 99213; G0463

== ENCOUNTER 2022-12-22 00:37 | Day surgery (SDC) | payer OTHER, SELFPAY ==
[2022-12-15 14:05] VITALS: BMI 25.4
--- NOTE | 2022-12-15 14:26 | SUR.PREOP ---
Report to the Outpatient Waiting Room, entrance under the green pavilion located off [facility], at time 0615 on date 12/22/2022. Planned Procedure Time: 0815. Time changes happen often and if your time is changed the preop area will call you the afternoon before. - You and your visitor will be asked to self-screen and do not enter if you have any COVID symptoms. - A mask is optional within the hospital at this time. Patients may have clear liquids (water, carbonated beverages, clear teas, apple juice) until 3 hours prior to surgery with a maximum of 20 ounces. - No food from midnight until time of surgery - Infants may have breast milk until 4 hours before surgery, infant formula 6 hours prior to surgery. - Children will be allowed to drink immediately following surgery. If applicable, please bring a bottle or sippy cup to assist with drinking. Juice, water, soda, and popsicles are readily available. For infants on formula, please bring formula the day of surgery. Pacifiers are allowed. Take the following medications with a SIP of water the morning of surgery: as needed for Colitis symptoms- Dicyclomine, Omeprazole DO NOT STOP ANY OF YOUR OTHER PRESCRIPTION MEDICATIONS PRIOR TO SURGERY ?EXCEPT THE FOLLOWING Medications to discontinue per physician: N/A Please no make-up, nail cymro, hairspray, perfume, deodorant, or body powder the day of surgery. No jewelry (including any body piercings) or valuables the day of surgery, leave them at home. Please take a shower or bath the night before, or the morning of, surgery with an antibacterial soap. Wear comfortable, loose fitting clothing. Children are encouraged to wear pajamas. - Jewelry must be removed prior to entering the operating room. Rings and piercings that are not removed may be cut off. - The hospital will not accept responsibility for valuables. - Please leave all valuables, including medications, at home the day of surgery. If you are going home after surgery, a licensed pedicab driver must drive you home. - NO public transportation without another adult if you receive anesthesia. - We recommend that an adult stay with you for 24 hours following discharge. - We also recommend that you do not drive, make important decision, drink alcoholic beverages, or take any drugs that were not prescribed by your health care provider for at least 24 hours after your discharge time. For Pediatric surgeries, we recommend two adults accompany the child home. Follow any additional instructions given to you from your surgeon. If you or anyone in your household have experienced Covid symptoms in the past week, please notify your surgeon or the nurse liaison at the phone number below for possible testing. Telephone instructions given to patient- Summer and asked if any additional questions and then verbalized understanding. Patient advised to call surgeon office or pre surgery nurse liaison [phone] if any additional questions.
--- NOTE | 2022-12-21 12:15 | PC.NURSE ---
Report to the Outpatient Waiting Room, entrance under the green pavilion located off [facility], at time __1230 on date __12/22/22 . Planned Procedure Time: ___1430 . Time changes happen often and if your time is changed the preop area will call you the afternoon before. - You and your visitor will be asked to self-screen and do not enter if you have any COVID symptoms. - A mask is optional within the hospital at this time. Patients may have clear liquids (water, carbonated beverages, clear teas, apple juice) until 3 hours prior to surgery with a maximum of 20 ounces. - No food from midnight until time of surgery - Infants may have breast milk until 4 hours before surgery, infant formula 6 hours prior to surgery. - Children will be allowed to drink immediately following surgery. If applicable, please bring a bottle or sippy cup to assist with drinking. Juice, water, soda, and popsicles are readily available. For infants on formula, please bring formula the day of surgery. Pacifiers are allowed. Take the following medications with a SIP of water the morning of surgery: ___DICYCLOMINE IF NEEDED DO NOT STOP ANY OF YOUR OTHER PRESCRIPTION MEDICATIONS PRIOR TO SURGERY ?EXCEPT THE FOLLOWING Medications to discontinue per physician NONE Date to take last dose Please no make-up, nail namibian, hairspray, perfume, deodorant, or body powder the day of surgery. No jewelry (including any body piercings) or valuables the day of surgery, leave them at home. Please take a shower or bath the night before, or the morning of, surgery with an antibacterial soap. Wear comfortable, loose fitting clothing. Children are encouraged to wear pajamas. - Jewelry must be removed prior to entering the operating room. Rings and piercings that are not removed may be cut off. - The hospital will not accept responsibility for valuables. - Please leave all valuables, including medications, at home the day of surgery. If you are going home after surgery, a licensed team cdl driver must drive you home. - NO public transportation without another adult if you receive anesthesia. - We recommend that an adult stay with you for 24 hours following discharge. - We also recommend that you do not drive, make important decision, drink alcoholic beverages, or take any drugs that were not prescribed by your health care provider for at least 24 hours after your discharge time. For Pediatric surgeries, we recommend two adults accompany the child home. Follow any additional instructions given to you from your surgeon. If you or anyone in your household have experienced Covid symptoms in the past week, please notify your surgeon or the nurse liaison at the phone number below for possible testing. Telephone instructions given to __PATIENT and asked if any additional questions and then verbalized understanding. Patient advised to call surgeon office or pre surgery nurse liaison [phone] if any additional questions.
--- NOTE | 2022-12-21 12:17 | PC.NURSE ---
PT STATES NO CHANGE IN HEALTH HX SINCE LAST INTERVIEW 12/15/22
[2022-12-22] VITALS (7 sets, daily range): BP systolic 103–119; BP diastolic 65–80; PULSE 53–99; RESP 10–16; TEMP 36.2–37.2; O2SAT 98–100
--- NOTE | 2022-12-22 07:22 | WPDHPUPDATE1 ---
History and Physical Update Update Date/Time: 12/22/22 07:22 History and Physical has been reviewed, including an updated exam of the patient. There are NO changes in the patient's condition. Risks, benefits, and alternatives have been discussed and questions answered. Patient agrees to proceed with procedure.
[2022-12-22] MEDS: ACETAMINOPHEN 500 MG TABLET 1000 MG PO (14:00)
[2022-12-22] MEDS: LACTATED RINGERS 1,000 ML 30 ML IV CONT ×3 (14:05→17:45)
--- NOTE | 2022-12-22 14:05 | WPDANESEPPF ---
Anes - Initial Pre Proc Eval Procedure: Operation Date: 12/22/22 14:30 Proposed Procedures p Tonsillectomy - Curtis Sullivan MD Date/Time: 12/22/22 14:05 Surgeon: Curtis Sullivan MD Pre Op Diagnosis: hypertrophy tonsils Patient Data Age: 22 Gender: F Height: 1.6 m Weight: 64.4 kg Last Vital Signs Temp 37.2 C 12/22/22 14:01 Pulse 75 12/22/22 14:01 Resp 14 12/22/22 14:01 BP 108/65 12/22/22 14:01 Pulse Ox 99 12/22/22 14:01 O2 Del Method Room Air 12/22/22 14:01 Allergies Allergy/AdvReac Type Severity Reaction Status Date / Time cat dander Allergy Intermediate SNEEZE, Verified 12/22/22 14:06 ITCH, RASHES, EYES WATER, THROAT HURTS bee venom protein (honey bee) Allergy Anaphylactic Verified 12/22/22 14:06 Shock chocolate flavor AdvReac Migraine Verified 12/22/22 14:06 Home Medications Medication Instructions Recorded Confirmed Type dicyclomine 10 mg capsule 10 mg PO DAILY PRN upset stomach 11/25/22 12/21/22 History omeprazole 10 mg capsule,delayed 10 mg PO DAILY PRN Acid Reflux 12/15/22 12/21/22 History release amoxicillin 875 mg tablet 875 mg PO Q12H #20 tabs 12/20/22 12/21/22 Rx epinephrine 0.3 mg/0.3 mL 0.3 mg IM PRN PRN Anaphylaxis 12/20/22 12/21/22 History injection, auto-injector loratadine 10 mg tablet (Claritin) 10 mg PO DAILY #30 tabs 12/20/22 12/21/22 Rx Patient hx anesthesia problems: none Family hx anesthesia problems: none Results Review: All pre-operative results and documents have been reviewed as part of the pre-operative evaluation. [facility] Past Medical History Medical History (Updated 12/21/22 @ 00:00 by Background Daemon) Abnormal CT scan Anxiety Anxiety Head injury Headache Left wrist sprain Nausea and vomiting (normal spontaneous vaginal delivery) Other sprain of left foot, initial encounter Scoliosis Toe fracture, right Tonsil pain Wrist fracture, left (06/13/19) Surgical History Surgical History (System 12/09/22 @ 13:22 by Rosalva Glover) History of removal of skin mole lt temporal, June 2015 Family History Family History Other Diabetes mellitus No pertinent family history Social History Social History (System 12/09/22 @ 13:22 by Rosalva Glover) Social History: Caffeine-daily Smoking status: Never smoker Tobacco type: e-cigarettes/vaping Second hand tobacco smoke exposure: No Additional smoking assessment comments: Pt and significant other vaped. Significant other also stopped vaping 2-3 Alcohol intake: never Substance use: current Substance use type: marijuana Last use: 12/13/2022 Living arrangements: with family Gender identity (if verbalized by the patient): Female Spiritual care concerns: No Anes - Eval Final PreProcedure Day of Procedure 12/22/22 14:05 Patient weight: overweight Heart: regular rate and rhythm Lungs: clear to auscultation Airway: Mallampati scale class II Neurological: alert and oriented Last oral intake: >/= 8 hours ASA classification: II Emergent: no Anesthetic plan: proceed Anesthesia type and monitoring: general ETT and standard monitoring Results Review: All pre-operative results and documents have been reviewed as part of the pre-operative evaluation. Informed Consent: The patient's anesthetic plan and its attendant risks and benefits were discussed with the patient/family/POA. Questions were solicited and answers provided to the satisfaction of the patient/family/POA.
[2022-12-22] MEDS: fentaNYL CITRATE INJ (*CRX) 100 MCG/2 ML VIAL 25 MCG IV PUSH ×4 (17:26→17:56)
--- NOTE | 2022-12-22 17:45 | W.PM.PROC2 ---
Procedure Note - Detailed Date of Procedure 12/22/22 Pre-op Diagnosis hypertrophy tonsils, recurrent tonsillitis Post-op Diagnosis Same Procedure Performed tonsillectomy Surgeon Curtis Sullivan MD Anesthesia General Indications a seen by my partner reported have enough infections to meet criteria for tonsillectomy Findings chronic appearing tonsils minimal bleeding from left side Description of Procedure patient identified consent verified preoperative holding area. Patient brought to the operating room. Time-out performed. General anesthesia induced endotracheal tube secured airway. Patient prepped draped position procedure confirmed 2nd time-out performed. McIvor mouth gag inserted to reveal tonsils described above about 2+ chronic appearing. The removed bilaterally in extracapsular plane using Bovie electrocautery at a setting of 10. Any bleeding was controlled with Bovie suction electrocautery setting of 12 in 15. In between tonsillectomy the McIvor mouth gag was lowered to allow blood flow to return to the tongue depressed numbness to prevent numbness and paresthesias. After tonsillectomy the McIvor McIvor mouth gag was lowered and reopened 30 seconds later to reveal no further bleeding. McIvor walk a then removed. Patient tolerated procedure well no complications. I performed all dictated portions procedure. Care the patient given back to Anesthesiology. Blood loss about 2 cc. No complications. Estimated Blood Loss 2 Drains No Packing No Pathology Yes Complications No immediate complications Condition Stable Disposition PACU [facility] Billing Surgery - Charge Forward: Surgery Billing
[2022-12-22] MEDS: oxyCODONE HCL (*CRX) 5 MG TAB IR PO (18:25)
== END 2022-12-22 19:20 | disposition home or self-care (01) ==
PROVIDERS: PCP Family Medicine; Visit Provider Otolaryngology
PROC: (CPT 42821; principal; 2022-12-22 14:30)
DX: J03.91 Acute recurrent tonsillitis, unspecified (principal); F12.90 Cannabis use, unspecified, uncomplicated; Z87.891 Personal history of nicotine dependence
CPT/HCPCS: 42821; 88300; 88302; A9270; J0330; J1100; J2250; J2405; J2704; J3010; J7120

== ENCOUNTER 2023-04-12 10:13 | Emergency (ER) | payer OTHER, SELFPAY ==
--- NOTE | ~2023-04-12 | XR_ITS ---
EXAMINATION: XR hand RT min 3V DATE: 04/12/2023 10:36 INDICATION: Medial sided bruising and swelling at the right hand post fall TECHNIQUE: Posteroanterior, oblique and lateral views of the right hand were obtained. COMPARISON: None. FINDINGS: Alignment is normal. No fracture. Joint spaces are normal. Soft tissues are unremarkable. IMPRESSION: 1. Negative right hand radiographs. Reviewed, dictated and finalized at location A.
[2023-04-12 10:24] VITALS: BP 113/68; PULSE 91; RESP 16; TEMP 36.6; O2SAT 99
--- NOTE | 2023-04-12 10:52 | ED.UPPEXIN ---
HPI - Extremity Injury (Upper) General Chief Complaint: Extremity Injury, Upper Stated Complaint: Injured Time Seen by Provider: 04/12/23 10:16 Source: patient Mode of arrival: ambulatory Limitations: no limitations History of Present Illness HPI narrative: Neisha is a 22-year-old female patient presenting to clinic today with complaints of right hand pain after falling yesterday. She reports she is having pain and swelling over the 4th and 5th metacarpals. Is unable to make a full fist as this causes pain. Related Data Home Medications Medication Instructions Recorded Confirmed No Home Medications 04/12/23 04/12/23 Allergies Allergy/AdvReac Type Severity Reaction Status Date / Time cat dander Allergy Intermediate SNEEZE, Verified 04/12/23 10: ITCH, RASHES, EYES WATER, THROAT HURTS bee venom protein (honey bee) Allergy Anaphylactic Verified 04/12/23 10:23 Shock chocolate flavor AdvReac Migraine Verified 04/12/23 10:23 Review of Systems Review of Systems: Pertinent positives per HPI. Patient denies any fever, chills, rash, headache, visual changes, dizziness, cough, runny nose, sore throat, shortness of breath, chest pain, palpitations, nausea, vomiting, diarrhea, constipation, abdominal pain, or any urinary issues. [facility] Past Medical History Medical History Abnormal CT scan Anxiety Anxiety Head injury Headache Left wrist sprain Nausea and vomiting (normal spontaneous vaginal delivery) Other sprain of left foot, initial encounter Scoliosis Toe fracture, right Tonsil pain Wrist fracture, left (06/13/19) Surgical History Surgical History History of removal of skin mole lt , June 2015 Family History Family History Other Diabetes mellitus No pertinent family history Social History Social History Social History: Caffeine-daily Smoking status: Never smoker Tobacco type: e-cigarettes/vaping Second hand tobacco smoke exposure: No Additional smoking assessment comments: Pt and significant other vaped. Significant other also stopped vaping 2-3 Alcohol intake: never Substance use: current Substance use type: marijuana Last use: 12/13/2022 Living arrangements: with family Gender identity (if verbalized by the patient): Female Sexual Orientation (if Verbalized by the Patient): Straight or Heterosexual Spiritual care concerns: No Comments At the time of my signature, I reviewed and agree with the nursing past medical, surgical, social, and family history. There is no relevant family history pertinent to the patient complaint. Exam Narrative: General: Well-developed, well nourished, in no apparent distress Head: Normocephalic, atraumatic. Cardio: Regular rate and rhythm, s1 and s2 normal, no murmur appreciated. Resp: Clear to auscultation bilaterally, no rhonchi, rales, wheezing or rubs. Musculoskeletal: No deformity, swelling and bruising noted to the dorsal hand just above the 4th and 5th meta carpals, tender to palpation over the 4th and 5th metacarpals, limited range of motion due to pain over the 4th and 5th metacarpal, grossly normal range of motion to all the fingers, peripheral pulse strong, no cyanosis, normal gait and station Course Course Emergency Course: Portions of this record may have been created with voice recognition software. Level of Care: Express Care Visit Vital Signs Vital signs: Vital Signs Temperature 36.6 C 04/12/23 10:24 Pulse Rate 91 04/12/23 10:24 Respiratory Rate 16 04/12/23 10:24 Blood Pressure 113/68 04/12/23 10:24 Pulse Oximetry 99 04/12/23 10:24 Temperature 36.6 C 04/12/23 10:24 Pulse Rate 91 04/12/23 10:
== END 2023-04-12 11:00 | disposition home or self-care (01) ==
PROVIDERS: Emergency Provider Nurse Practitioner Family; PCP Family Medicine
DX: S60.221A Contusion of right hand, initial encounter (principal); W19.XXXA Unspecified fall, initial encounter
CPT/HCPCS: 73130; 99213; G0463

== ENCOUNTER 2023-05-12 22:42 | Emergency (ER) | payer OTHER, SELFPAY ==
[2023-05-12 22:49] VITALS: BP 113/75; PULSE 87; RESP 20; TEMP 36.1; O2SAT 100
--- NOTE | 2023-05-13 01:05 | ED.EYEPROB ---
HPI - Eye Problem General Chief complaint: Eye Problems Stated complaint: eye complaint Time Seen by Provider: 05/13/23 00:44 Source: patient Mode of arrival: ambulatory Limitations: no limitations History of Present Illness HPI Narrative: This is a 22-year-old female who presents to the ED with chief complaint of left eye pain, itching and drainage beginning yesterday. Patient reports that tonight the eyes started becoming more swollen so she came to the ED. She states the only medications she has tried is normal saline drops. She states the swelling actually improved while waiting to be seen. She does note that she had crusting of the eye this morning with yellow/green goopy stuff. She also states that her children are in daycare and may have brought something home. Denies visual disturbance, pain with EOMs, fevers, chills, nausea, vomiting. Denies any trauma to the eye. Denies scratching sensation. Related Data Allergies Allergy/AdvReac Type Severity Reaction Status Date / Time cat dander Allergy Intermediate SNEEZE, Verified 04/16/23 08:59 ITCH, RASHES, EYES WATER, THROAT HURTS bee venom protein (honey bee) Allergy Anaphylactic Verified 04/16/23 08:59 Shock chocolate flavor AdvReac Migraine Verified 04/16/23 08:59 Review of Systems Review of Systems: All systems as dictated in [facility] Past Medical History Medical History (Updated 05/13/23 @ 01:10 by Jose Rafael Lopez PA-C) Abnormal CT scan Anxiety Anxiety Contusion of right hand Head injury Headache Left wrist sprain Nausea and vomiting (normal spontaneous vaginal delivery) Other sprain of left foot, initial encounter Scoliosis Toe fracture, right Tonsil pain Wrist fracture, left (06/13/19) Surgical History Surgical History History of removal of skin mole lt , June 2015 Family History Family History Other Diabetes mellitus No pertinent family history Social History Social History Social History: Caffeine-daily Smoking status: Never smoker Tobacco type: e-cigarettes/vaping Second hand tobacco smoke exposure: No Additional smoking assessment comments: Pt and significant other vaped. Significant other also stopped vaping 2-3 Alcohol intake: never Substance use: current Substance use type: marijuana Last use: 12/13/2022 Living arrangements: with family Gender identity (if verbalized by the patient): Female Sexual Orientation (if Verbalized by the Patient): Straight or Heterosexual Spiritual care concerns: No Exam Narrative: GENERAL: Well-appearing, well-nourished, and in no acute distress. HEAD: Normocephalic, atraumatic. EYES: PERRLA and EOMI. right eye benign. Left conjunctival injection. Minimal amount of mucopurulent crusted discharge noted to the external eye. No pain with EOMs. No significant swelling. ENT: Nares clear, no rhinorrhea or epistaxis. Mucous membranes moist. Oropharynx without tonsillar hypertrophy exudate or other lesions. NECK: Supple. No adenopathy or masses. CHEST: No respiratory distress. Clear to auscultation. No wheezes rales or rhonchi HEART: Regular rate and rhythm. No murmur heard. Normal peripheral pulses. ABDOMEN: Soft, nontender, nondistended, normal active bowel sounds. MSK: Normal range of motion. No edema. SKIN: Warm, dry, no rash. NEURO: Alert and oriented x3. No focal deficits. PSYCH: Normal mood and affect. Course Vital Signs Vital signs: Vital Signs Temperature 97.0 F L 05/12/23 22:49 Pulse Rate 87 05/12/23 22:49 Respiratory Rate 20 05/12/23 22:49 Blood Pressure 113/75 05/12/23 22:49 Pulse Oximetry 100 05/12/23 22:49 Oxygen Delivery Room Air 05/12/23 22:49 Temperature 97.0 F L 05/12/23 22:49 Pulse Rate 87
[2023-05-13] MEDS: OFLOXACIN 0.3% OPHTH SOLN 5 ML BTL 1 DROP LEFT EYE (01:24)
== END 2023-05-13 01:27 | disposition home or self-care (01) ==
PROVIDERS: Emergency Provider Physician Assistant; PCP Family Medicine
DX: H10.89 Other conjunctivitis (principal); Z87.891 Personal history of nicotine dependence
CPT/HCPCS: 99283; A9270

== ENCOUNTER 2023-08-25 19:01 | Emergency (ER) | payer OTHER, SELFPAY ==
[2023-08-25 19:09] VITALS: BP 109/63; PULSE 130; RESP 20; TEMP 39; O2SAT 98
--- NOTE | 2023-08-25 19:27 | ED.URI ---
HPI - URI/Sore Throat General Chief Complaint: Upper Respiratory Infection Stated Complaint: HEADACHE/BODY ACHES Time Seen by Provider: 08/25/23 19:27 Source: patient Mode of arrival: ambulatory Limitations: no limitations History of Present Illness HPI Narrative: 23-year-old female presents with complaint of fever, chills, body aches, headache starting today. Patient reports that she has had 3 days of nasal congestion and postnasal drainage. When your primary care physician 2 days ago due to nasal congestion and was given an antibiotic, Bactrim. Asked patient why she was given an antibiotic to treat 1 day of nasal congestion and she stated ?this is what they told me they were giving me . Patient denies cough, sore throat, rash. No urinary symptoms. Patient took ibuprofen 2 hours ago to treat fever. All systems reviewed and negative except as noted above. Related Data Allergies Allergy/AdvReac Type Severity Reaction Status Date / Time cat dander Allergy Intermediate SNEEZE, Verified 08/25/23 19:15 ITCH, RASHES, EYES WATER, THROAT HURTS bee venom protein (honey bee) Allergy Anaphylactic Verified 08/25/23 19:15 Shock chocolate flavor AdvReac Migraine Verified 08/25/23 19:15 Review of Systems Review of Systems: CONSTITUTIONAL: Reports fever, fatigue, chills, or sweats. EYES: Denies visual changes, redness, or discharge. ENT: Reports rhinorrhea, congestion. Denies sore throat, or otalgia. CARDIOVASCULAR: Denies chest pain, palpitations, or edema. RESPIRATORY: Denies cough or dyspnea. GASTROINTESTINAL: Denies abdominal pain, nausea, vomiting, or diarrhea. GENITOURINARY: Denies dysuria or hematuria. SKIN: Denies rash or itching. MUSCULOSKELETAL: Denies back pain, joint pain, or myalgia. NEUROLOGIC: Reports headache. Denies numbness, or weakness. PSYCHIATRIC: Denies anxiety or depression. All other systems reviewed are negative, except as documented in HPI. [facility] Past Medical History Medical History (Updated 08/25/23 @ 19:30 by Bee Tabares NP) Abnormal CT scan Anxiety Anxiety Contusion of right hand Head injury Headache Left wrist sprain Nausea and vomiting (normal spontaneous vaginal delivery) Other sprain of left foot, initial encounter Scoliosis Toe fracture, right Tonsil pain Wrist fracture, left (06/13/19) Surgical History Surgical History History of removal of skin mole lt temporal, June 2015 Family History Family History Other Diabetes mellitus No pertinent family history Social History Social History Social History: Caffeine-daily Smoking status: Never smoker Tobacco type: e-cigarettes/vaping Second hand tobacco smoke exposure: No Additional smoking assessment comments: Pt and significant other vaped. Significant other also stopped vaping 2-3 Alcohol intake: never Substance use: current Substance use type: marijuana Last use: 12/13/2022 Living arrangements: with family Gender identity (if verbalized by the patient): Female Sexual Orientation (if Verbalized by the Patient): Straight or Heterosexual Spiritual care concerns: No Comments At time of signature, agree with nursing past medical, surgical, social and family history. There is no relevant family history pertinent to the presenting complaint. Exam Narrative: GENERAL: This is a well-nourished, well-developed patient, patient ill-appearing but no acute distress. HEAD: normocephalic, atraumatic. EYES: PERRL. Sclera clear/white. Vision is grossly intact. EARS: External ears normal, auditory canals clear and without drainage, TMs normal without perforation. Hearing grossly intact. NOSE: External nose normal with clear nasal drainage, mild congestion. THROAT: Mucous membranes moist, mild er
== END 2023-08-25 19:34 | disposition home or self-care (01) ==
PROVIDERS: Emergency Provider Nurse Practitioner Family; PCP Family Medicine
DX: J01.90 Acute sinusitis, unspecified (principal); R50.9 Fever, unspecified; F17.290 Nicotine dependence, other tobacco product, uncomplicated
CPT/HCPCS: 87804; 99213; G0463

== ENCOUNTER 2023-08-28 12:51 | Emergency (ER) | payer OTHER, SELFPAY ==
[2023-08-28 12:53] VITALS: BP 118/66; PULSE 90; RESP 16; TEMP 36.4; O2SAT 100
--- NOTE | 2023-08-28 14:06 | ED.GENADULT ---
HPI - General Adult General Chief complaint: Unspecified Stated complaint: facial swelling Time Seen by Provider: 08/28/23 12:59 History of Present Illness HPI narrative: 23-year-old female presenting with right-sided facial swelling. States that she has had a lot of thick nasal congestion and sinus pressure for the last 10-14 days. Has had intermittent fevers. Went to Urgent Care few days ago was started on amoxicillin. States that her symptoms have continued and now the right side of her face is swollen. Denies sore throat, chest pain, shortness of breath, cough. states that she was negative for COVID, RSV, strep, flu several days ago. She denies pain with eye movements, eye redness, vision changes. States that her right eye has been tearing up lately. Related Data Allergies Allergy/AdvReac Type Severity Reaction Status Date / Time cat dander Allergy Intermediate SNEEZE, Verified 08/28/23 12:52 ITCH, RASHES, EYES WATER, THROAT HURTS bee venom protein (honey bee) Allergy Anaphylactic Verified 08/28/23 12:52 Shock chocolate flavor AdvReac Migraine Verified 08/28/23 12:52 Review of Systems Review of Systems: All systems reviewed & are unremarkable except as noted in HPI and below PMFSH Past Medical History Medical History Abnormal CT scan Anxiety Anxiety Contusion of right hand Head injury Headache Left wrist sprain Nausea and vomiting (normal spontaneous vaginal delivery) Other sprain of left foot, initial encounter Scoliosis Toe fracture, right Tonsil pain Wrist fracture, left (06/13/19) Surgical History Surgical History History of removal of skin mole lt temporal, June 2015 Family History Family History Other Diabetes mellitus No pertinent family history Social History Social History Social History: Caffeine-daily Smoking status: Never smoker Tobacco type: e-cigarettes/vaping Second hand tobacco smoke exposure: No Additional smoking assessment comments: Pt and significant other vaped. Significant other also stopped vaping 2-3 Alcohol intake: never Substance use: current Substance use type: marijuana Last use: 12/13/2022 Living arrangements: with family Gender identity (if verbalized by the patient): Female Sexual Orientation (if Verbalized by the Patient): Straight or Heterosexual Spiritual care concerns: No Exam Narrative: GENERAL: Nontoxic, no acute distress HEAD: Normocephalic, atraumatic. EYES: PERRLA and EOMI. ENT: thick nasal congestion right nare, frontal and maxillary sinus tenderness NECK: Supple. CHEST: Clear to auscultation. No respiratory distress. HEART: Regular rate and rhythm EXTREMITIES: Normal range of motion. No edema. SKIN: Warm, dry, no rash. NEURO: No focal deficits. Alert and oriented x3. PSYCH: Normal mood and affect. Course Vital Signs Vital signs: Vital Signs Temperature 97.6 F 08/28/23 12:53 Pulse Rate 90 08/28/23 12:53 Respiratory Rate 16 08/28/23 12:53 Blood Pressure 118/66 08/28/23 12:53 Pulse Oximetry 100 08/28/23 12:53 Oxygen Delivery Room Air 08/28/23 12:53 Temperature 97.6 F 08/28/23 12:53 Pulse Rate 90 08/28/23 12:53 Respiratory Rate 16 08/28/23 12:53 Blood Pressure 118/66 08/28/23 12:53 Pulse Oximetry 100 08/28/23 12:53 Oxygen Delivery Room Air 08/28/23 12:53 Medical Decision Making MDM Narrative Medical decision making narrative: 23-year-old female presenting with sinus pain, nasal congestion, right-sided facial swelling. Vitals are stable. exam remarkable for the above. Patient has been on amoxicillin, will switch her to Augmentin. will start Flonase for all of her congestio
== END 2023-08-28 14:24 | disposition home or self-care (01) ==
PROVIDERS: Emergency Provider Emergency Medicine; PCP Family Medicine
DX: J32.9 Chronic sinusitis, unspecified (principal); F17.290 Nicotine dependence, other tobacco product, uncomplicated
CPT/HCPCS: 99283

== ENCOUNTER 2023-10-26 13:38 | Outpatient (CLI) | payer OTHER, SELFPAY ==
[2023-10-26 14:20] LABS: Beta HCG Quantitative < 2.39 mIU/ML
[2023-10-27 03:21] LABS: Free T4 Free Thyroxine 0.92 ng/mL (0.78-2.19)
[2023-10-27 03:34] LABS: Thyroid Stimulating Hormone Reflex 0.888 uIU/mL (0.465-4.68)
== END 2023-10-26 13:39 | disposition home or self-care (01) ==
LOC: ANHLAB 13:40
PROVIDERS: PCP Family Medicine; Visit Provider Advanced Practice Midwife
DX: N92.6 Irregular menstruation, unspecified (principal)
CPT/HCPCS: 36415; 84439; 84443; 84702

== ENCOUNTER 2023-11-03 07:43 | Outpatient (CLI) | payer OTHER, SELFPAY ==
--- NOTE | ~2023-11-03 | NM_ITS ---
EXAMINATION: NM hepatobiliary wo pharm DATE: 11/03/2023 10:56 CDT INDICATION: Nausea with vomiting COMPARISON: CT dated 10/27/2022. TECHNIQUE: 4.9 mCi Tc-99m mebrofenin (Choletec) was administered intravenously. Scintigraphic images of the abdomen were obtained for one hour. At the 1 hour time point, the patient drank 8 oz Ensure, and imaging was continued for 60 minutes. Gallbladder ejection fraction was calculated by the technol ogist. FINDINGS: There is normal clearance of radiotracer from the blood pool. There is homogeneous tracer u ptake by the liver. Activity progresses to the bowel and gallbladder. The gallbladder ejection fract ion is 77%. Note that with this technique, normal GBEF >= 33%. IMPRESSION: 1. Normal hepatobiliary scan. Reviewed, dictated and finalized at location B.
== END 2023-11-03 07:44 | disposition home or self-care (01) ==
LOC: ANHIMG 07:44
PROVIDERS: PCP Family Medicine; Visit Provider Nurse Practitioner Family
DX: R11.2 Nausea with vomiting, unspecified (principal); R19.7 Diarrhea, unspecified; R10.11 Right upper quadrant pain
CPT/HCPCS: 78226; A9537

== ENCOUNTER 2023-12-15 19:14 | Outpatient (NON) | payer BC, SELFPAY | END 2023-12-15 19:15 | disposition home or self-care (01) | LOC: ANHGOSHLAB 19:17 | PROVIDERS: PCP Family Medicine; Visit Provider Otolaryngology | DX: J32.9 Chronic sinusitis, unspecified (principal) | CPT/HCPCS: 87070; 87075; 87205 ==

== ENCOUNTER 2024-01-14 22:49 | Emergency (ER) | payer BC, SELFPAY ==
[2024-01-14 23:20] VITALS: BP 112/65; PULSE 88; RESP 18; TEMP 36.2; O2SAT 99
[2024-01-15 01:04] VITALS: BP 118/90; PULSE 64; RESP 18; O2SAT 97
[2024-01-15 01:08] LABS: Basophils Absolute Auto 0.1 K/mm3 (0.0-0.1); Basophils Percent Auto 0.7 % (0.2-1.2); Eosinophils Absolute Auto 0.2 K/mm3 (0-0.3); Eosinophils Percent Auto 1.5 % (0-4.4); Hematocrit 40.2 % (37.0-47.0); Immature Granulocyte Absolute 0.04 K/mm3 (0.00-0.031); Immature Granulocyte Percent A 0.4 % (0-0.5); Lymphocytes Absolute Auto 3.25 K/mm3 (0.9-3.2); Lymphocytes Percent Auto 32.9 % (18.3-44.2); Mean Corpuscular HGB Conc 34.8 g/dl (32-36); Mean Corpuscular Hemoglobin 30.1 pg (26-34); Mean Corpuscular Volume 86.5 fl (80-100); Mean Platelet Volume 11.4 fl (7.4-10.4); Monocytes Percent Auto 9.9 % (2.6-8.5); Neutrophils Absolute Auto 5.4 K/mm3 (1.3-6.7); Neutrophils Percent Auto 54.6 % (45.5-73.1); Platelet Count Result 249 k/mm3 (150-375); Red Blood Count 4.65 M/mm3 (4.2-5.4); Red Cell Distribution Width 12.6 % (11.5-14.5); White Blood Count 9.9 K/mm3 (4.5-10.0)
--- NOTE | 2024-01-15 01:20 | ED.BACK ---
HPI - Back Pain/Injury General Chief Complaint: Back Pain/Injury Stated Complaint: back pain Time Seen by Provider: 01/15/24 01:02 History of Present Illness HPI Narrative: 23-year-old female presenting to the emergency department for evaluation for right flank pain for the past 3 days. Patient denies any significant pain with urination. Patient denies any specific falls or injuries. Patient states that she does require prior but does not feel that she is acutely dehydrated. Patient denies any prior history of kidney stones. Related Data Allergies Allergy/AdvReac Type Severity Reaction Status Date / Time cat dander Allergy Intermediate SNEEZE, Verified 12/15/23 13:25 ITCH, RASHES, EYES WATER, THROAT HURTS bee venom protein (honey bee) Allergy Anaphylactic Verified 12/15/23 13:25 Shock chocolate flavor AdvReac Migraine Verified 12/15/23 13:25 Review of Systems Review of Systems: All systems reviewed & are unremarkable except as noted in HPI and below PMFSH Past Medical History Medical History Abnormal CT scan Anxiety Anxiety Contusion of right hand Diarrhea Head injury Headache Left wrist sprain Nausea and vomiting (normal spontaneous vaginal delivery) Other sprain of left foot, initial encounter RUQ pain Scoliosis Toe fracture, right Tonsil pain Wrist fracture, left (06/13/19) Surgical History Surgical History History of removal of skin mole lt temporal, June 2015 Family History Family History Other Diabetes mellitus No pertinent family history Social History Social History Social History: Caffeine-daily Smoking status: Never smoker Tobacco type: e-cigarettes/vaping Second hand tobacco smoke exposure: No Additional smoking assessment comments: Pt and significant other vaped. Significant other also stopped vaping 2-3 Alcohol intake: never Substance use: current Substance use type: marijuana Last use: 12/13/2022 Do You Feel Safe in your Home?: Yes Lack of Transportation: No Lack of Food: Never True Current Housing: I Have Housing Concerned About Future Housing: No Difficulty Paying Gas/Electric Bills: No Difficulty Paying for Meds: No Currently Unemployed: No Education: High School Diploma/GED Difficulty w/ Childcare or Family Care: No Living arrangements: with family Gender identity (if verbalized by the patient): Female Sexual Orientation (if Verbalized by the Patient): Straight or Heterosexual Spiritual care concerns: No Exam Narrative: APPEARANCE: Uncomfortable HEAD: normocephalic, atraumatic. EYES: PERRLA/EOMI, conjunctivae clear. NOSE: Normal no drainage EARS:TMS clear with good light reflex. THROAT: Pharynx clear, no exudate. NECK: Supple. No adenopathy, no masses. RESPIRATORY: Airway patent, respirations nonlabored. Clear to auscultation bilaterally, no rales, rhonchi, wheezing. CARDIOVASCULAR: Regular rate and rhythm without murmurs rubs or gallops. ABDOMINAL: Right CVA and suprapubic tenderness to palpation MUSCULOSKELETAL: Moves all extremities. Strength/ROM intact, No edema, No calf tenderness. NEURO: Alert. Cranial nerves II through XII intact. Grossly intact Course Course Emergency Course: Patient is being treated for urine tract infection and patient was discharged home. Vital Signs Vital signs: Vital Signs Temperature 97.2 F L 01/14/24 23:20 Pulse Rate 88 01/14/24 23:20 Respiratory Rate 18 01/14/24 23:20 Blood Pressure 112/65 01/14/24 23:20 Pulse Oximetry 99 01/14/24 23:20 Oxygen Delivery Room Air 01/14/24 23:20 Temperature 97.2 F L 01/14/24 23:20 Pulse Rate 64 01/15/24 01:04 Respiratory Rate 01/15/24 01:
[2024-01-15 01:23] LABS: Alanine Aminotransferase 15 U/L (6-35); Albumin Level 4.7 g/dL (3.5-5.1); Alkaline Phosphatase 76 U/L (38-126); Anion Gap 10 mmol/L (4-12); Aspartate Amino Transferase 28 U/L (14-36); Bilirubin,Total 0.4 mg/dL (0.2-1.3); Blood Urea Nitrogen 9 mg/dL (7-17); Calcium 9.5 mg/dL (8.4-10.2); Carbon Dioxide 28 mmol/L (22-30); Chloride 101 mmol/L (98-107); Estimated CRCL calculation 108 ml/min; Estimated Glomerular Filt Rate > 60; Glucose 93 mg/dL (65-110); Potassium 3.4 mmol/L (3.4-5.0); Sodium 139 mmol/L (137-145)
[2024-01-15 01:31] LABS: Appearance Urine Cloudy (Clear); Bacteria Urine Rare /hpf; Bilirubin Urine Negative (Negative); Blood Urine Negative (Negative); Color Urine Yellow (Yellow); Glucose Urine UA Negative (Negative); Ketones Urine Negative (Negative); Leukocyte Esterase Ur Negative LEU/UL (Negative); Nitrate Urine Negative (Negative); Non Pathogenic Casts 0-2; Protein Urine Negative (Negative); RBC Urine 0-2 /hpf (0-2); Specific Grav Ur 1.033 (1.001-1.035); Squamous Epithelial Cell Urine Occasional /hpf (Few); pH Urine 5.5 (5.0-9.0)
[2024-01-15 01:32] LABS: Add Urine Microscopic? YES
[2024-01-15] MEDS: CEPHALEXIN 500 MG CAPSULE PO (01:58)
[2024-01-15] MEDS: PHENAZOPYRIDINE HCL 100 MG TABLET 200 MG PO (01:58)
== END 2024-01-15 02:30 | disposition home or self-care (01) ==
PROVIDERS: Emergency Provider Emergency Medicine; PCP Family Medicine
DX: N39.0 Urinary tract infection, site not specified (principal); Z87.891 Personal history of nicotine dependence
CPT/HCPCS: 36415; 80053; 81001; 81025; 85025; 87086; 96365; 99284; A9270; J0696

== ENCOUNTER 2024-01-30 12:37 | Emergency (ER) | payer BC, SELFPAY ==
--- NOTE | ~2024-01-30 | CT_ITS ---
EXAMINATION: CT abdomen pelvis wo con DATE: 01/30/2024 13:50 INDICATION: Right flank pain for 2 to 3 weeks. Recent urinary tract infection. TECHNIQUE: Computed tomography (CT) of the abdomen and pelvis was performed without intravenous contr ast. Automated exposure control and iterative reconstruction technique were employed. Exam dose: 484 .76 mGy-cm total exam DLP. COMPARISON: 10/27/2022 CT abdomen pelvis FINDINGS: Normal heart size. No pericardial or pleural effusion. The lung bases are clear of infiltra te or consolidation. The liver, gallbladder, bile ducts and pancreatic duct, spleen, pancreas, and adrenal glands, kidneys and urinary bladder, uterus and ovaries appear unremarkable. Normal appendix. No bowel obstruction or intraperitoneal free air. Normal caliber of the abdominal aorta. No intraperitoneal or retroperitoneal or pelvic mass lesion or adenopathy or ascites is detected. Included skeletal structures are unremarkable. IMPRESSION: No significant abnormality Reviewed, dictated and finalized at [facility]. Reviewed, dictated and finalized at [facility]. IMPRESSION: No significant abnormality
[2024-01-30 12:42] VITALS: BP 123/71; PULSE 92; RESP 20; TEMP 36.9; O2SAT 100
[2024-01-30 12:54] LABS: BEDSIDEPREGUCG Negative
[2024-01-30 13:03] LABS: Basophils Absolute Auto 0.1 K/mm3 (0.0-0.1); Basophils Percent Auto 0.6 % (0.2-1.2); Eosinophils Absolute Auto 0.2 K/mm3 (0-0.3); Eosinophils Percent Auto 2.1 % (0-4.4); Hemoglobin 14.6 g/dL (12.0-15.0); Immature Granulocyte Absolute 0.06 K/mm3 (0.00-0.031); Immature Granulocyte Percent A 0.6 % (0-0.5); Lymphocytes Absolute Auto 3.09 K/mm3 (0.9-3.2); Lymphocytes Percent Auto 32.7 % (18.3-44.2); Mean Corpuscular HGB Conc 34.8 g/dl (32-36); Mean Corpuscular Volume 86.2 fl (80-100); Mean Platelet Volume 11.4 fl (7.4-10.4); Monocytes Absolute Auto 0.6 K/mm3 (0.1-0.6); Monocytes Percent Auto 6.3 % (2.6-8.5); Neutrophils Absolute Auto 5.5 K/mm3 (1.3-6.7); Neutrophils Percent Auto 57.7 % (45.5-73.1); Platelet Count Result 263 k/mm3 (150-375); Red Blood Count 4.87 M/mm3 (4.2-5.4); Red Cell Distribution Width 12.7 % (11.5-14.5); White Blood Count 9.5 K/mm3 (4.5-10.0)
[2024-01-30 13:08] LABS: Appearance Urine Cloudy (Clear); Bacteria Urine None Seen /hpf; Bilirubin Urine Negative (Negative); Blood Urine 2+ (Negative); Color Urine Yellow (Yellow); Glucose Urine UA Negative (Negative); Ketones Urine Negative (Negative); Leukocyte Esterase Ur Trace LEU/UL (Negative); Nitrate Urine Negative (Negative); Non Pathogenic Casts 0-2; Protein Urine Negative (Negative); Squamous Epithelial Cell Urine None Seen /hpf (Few); WBC Urine 0-5 /hpf (0-3)
[2024-01-30 13:14] LABS: Add Urine Microscopic? YES
[2024-01-30 13:22] LABS: Alanine Aminotransferase 19 U/L (6-35); Alkaline Phosphatase 64 U/L (38-126); Anion Gap 12 mmol/L (4-12); Aspartate Amino Transferase 23 U/L (14-36); Bilirubin,Total 0.6 mg/dL (0.2-1.3); Blood Urea Nitrogen 12 mg/dL (7-17); Calcium 9.5 mg/dL (8.4-10.2); Carbon Dioxide 26 mmol/L (22-30); Chloride 101 mmol/L (98-107); Estimated CRCL calculation 95 ml/min; Estimated Glomerular Filt Rate > 60; Glucose 97 mg/dL (65-110); Lipase 119 U/L (23-300); Potassium 3.8 mmol/L (3.4-5.0); Sodium 139 mmol/L (137-145)
[2024-01-30] MEDS: SODIUM CHLORIDE 0.9% IV 1,000 ML 999 ML IV CONT (13:24)
[2024-01-30] MEDS: KETOROLAC 30 MG/ML VIAL (*BKC) IV PUSH (13:26)
--- NOTE | 2024-01-30 13:38 | ED.ABDPAIN ---
HPI - Abdominal Pain General Chief Complaint: Abdominal Pain Stated Complaint: right flank pain Time Seen by Provider: 01/30/24 12:39 Source: patient, RN notes reviewed and old records reviewed Mode of arrival: ambulatory Limitations: no limitations History of Present Illness HPI narrative: THis is a 23 year old female who presents for evaluation of right flank pain. Patient states her pain started 2-3 weeks ago. Her pain has been constant and it is worse with movement. She was evaluated for her pain 2 weeks ago and she reports she was diagnosed with UIT. She completed her course of antibiotics and she has been taking Azo. She states her pain has not improvement. She rates her pain 8/10. She also reports having hematuria today but denies dysuria or increased urinary frequency. She is taking ibuprofen for pain. Related Data Allergies Allergy/AdvReac Type Severity Reaction Status Date / Time cat dander Allergy Intermediate SNEEZE, Verified 12/15/23 13:25 ITCH, RASHES, EYES WATER, THROAT HURTS bee venom protein (honey bee) Allergy Anaphylactic Verified 12/15/23 13:25 Shock chocolate flavor AdvReac Migraine Verified 12/15/23 13:25 Review of Systems Constitutional: Constitutional: Denies weakness Cardiovascular: Cardiovascular: Denies syncope, Denies rapid heart rate, Denies irregular heart rhythm, Denies leg edema and Denies dyspnea Respiratory: Respiratory: Denies chest congestion, Denies hemoptysis, Denies excessive phlegm production and Denies dyspnea Gastrointestinal: Gastrointestinal: Denies abdominal pain, Denies hematochezia, Denies diarrhea and Denies vomiting Genitourinary: Genitourinary: Reports hematuria, Denies dysuria and Reports flank pain Musculoskeletal: Musculoskeletal: Denies joint swelling, Denies loss of height and Denies muscle weakness Neurologic: Denies syncope, Denies focal weakness and Denies weakness PMFSH Past Medical History Medical History Abnormal CT scan Anxiety Anxiety Contusion of right hand Diarrhea Head injury Headache Left wrist sprain Nausea and vomiting (normal spontaneous vaginal delivery) Other sprain of left foot, initial encounter RUQ pain Scoliosis Toe fracture, right Tonsil pain Wrist fracture, left (06/13/19) Surgical History Surgical History History of removal of skin mole lt temporal, June 2015 Family History Family History Other Diabetes mellitus No pertinent family history Social History Social History Social History: Caffeine-daily Smoking status: Never smoker Tobacco type: e-cigarettes/vaping Second hand tobacco smoke exposure: No Additional smoking assessment comments: Pt and significant other vaped. Significant other also stopped vaping 2-3 Alcohol intake: never Substance use: current Substance use type: marijuana Last use: 12/13/2022 Do You Feel Safe in your Home?: Yes Lack of Transportation: No Lack of Food: Never True Current Housing: I Have Housing Concerned About Future Housing: No Difficulty Paying Gas/Electric Bills: No Difficulty Paying for Meds: No Currently Unemployed: No Education: High School Diploma/GED Difficulty w/ Childcare or Family Care: No Living arrangements: with family Gender identity (if verbalized by the patient): Female Sexual Orientation (if Verbalized by the Patient): Straight or Heterosexual Spiritual care concerns: No Exam Const: General: no acute distress and alert Nutritional Appearance: well nourished Orientation/consciousness: patient oriented x3 Limitations: no limitations HENMT: Head: normal to inspection Eyes: EOM: EOMs intact bilaterally Chest: Chest palpation & inspection: normal inspect
[2024-01-30 15:00] VITALS: BP 111/70; PULSE 86; RESP 16; O2SAT 100
== END 2024-01-30 15:00 | disposition home or self-care (01) ==
PROVIDERS: Emergency Provider General Practice; PCP Family Medicine
DX: R31.29 Other microscopic hematuria (principal); R10.9 Unspecified abdominal pain; F17.290 Nicotine dependence, other tobacco product, uncomplicated; F41.9 Anxiety disorder, unspecified
CPT/HCPCS: 36415; 74176; 80053; 81001; 81025; 83690; 85025; 96361; 96374; 99284; J1885; J7030

== ENCOUNTER 2024-05-03 07:32 | Emergency (ER) | payer BC, OTHER, SELFPAY ==
[2024-05-03 07:40] VITALS: BP 109/70; PULSE 100; RESP 16; TEMP 36.5; O2SAT 100
--- NOTE | 2024-05-03 08:22 | ED_ITS ---
HPI - General Adult General Chief complaint: Burn/Smoke Inhalation Stated complaint: BURN ON HAND X1 WEEK Time Seen by Provider: 05/03/24 07:52 History of Present Illness HPI narrative: 23-year-old female present to the emergency department for evaluation for injury to her right thumb webbing. Patient reports last week she did burn her hand on a hot dumpling. Patient states that she does have a small area of crusting that she was concerned about. Patient has a well healing burn that does have an area with some granulation. No purulent or serosanguineous discharge. Patient will be started topical antibiotic. Related Data Allergies Allergy/AdvReac Type Severity Reaction Status Date / Time cat dander Allergy Intermediate SNEEZE, Verified 12/15/23 13:25 ITCH, RASHES, EYES WATER, THROAT HURTS bee venom protein (honey bee) Allergy Anaphylactic Verified 12/15/23 13:25 Shock chocolate flavor AdvReac Migraine Verified 12/15/23 13:25 Review of Systems Review of Systems: All systems reviewed & are unremarkable except as noted in HPI and below PMFSH Past Medical History Medical History Abnormal CT scan Anxiety Anxiety Contusion of right hand Diarrhea Head injury Headache Left wrist sprain Nausea and vomiting (normal spontaneous vaginal delivery) Other sprain of left foot, initial encounter RUQ pain Scoliosis Toe fracture, right Tonsil pain Wrist fracture, left (06/13/19) Surgical History Surgical History History of removal of skin mole lt temporal, June 2015 Family History Family History Other Diabetes mellitus No pertinent family history Social History Social History Social History: Caffeine-daily Smoking status: Never smoker Tobacco type: e-cigarettes/vaping Second hand tobacco smoke exposure: No Additional smoking assessment comments: Pt and significant other vaped. Significant other also stopped vaping 2-3 Alcohol intake: never Substance use: current Substance use type: marijuana Last use: 12/13/2022 Do You Feel Safe in your Home?: Yes Lack of Transportation: No Lack of Food: Never True Current Housing: I Have Housing Concerned About Future Housing: No Difficulty Paying Gas/Electric Bills: No Difficulty Paying for Meds: No Currently Unemployed: No Education: High School Diploma/GED Difficulty w/ Childcare or Family Care: No Living arrangements: with family Gender identity (if verbalized by the patient): Female Sexual Orientation (if Verbalized by the Patient): Straight or Heterosexual Spiritual care concerns: No Exam Narrative: APPEARANCE: Well appearing, no pain, no distress, well-nourished. HEAD: normocephalic, atraumatic. EYES: PERRLA/EOMI, conjunctivae clear. NOSE: Normal no drainage EARS:TMS clear with good light reflex. THROAT: Pharynx clear, no exudate. NECK: Supple. No adenopathy, no masses. RESPIRATORY: Airway patent, respirations nonlabored. Clear to auscultation bilaterally, no rales, rhonchi, wheezing. CARDIOVASCULAR: Regular rate and rhythm without murmurs rubs or gallops. ABDOMINAL: Soft, nontender, nondistended, normal bowel sounds MUSCULOSKELETAL: Moves all extremities. Strength/ROM intact, No edema, No calf tenderness. NEURO: Alert. Cranial nerves II through XII intact. Grossly SKIN: Healing burn to right hand Course Vital Signs Vital signs: Vital Signs Temperature 97.7 F 05/03/24 07:40 Pulse Rate 100 05/03/24 07:40 Respiratory Rate 16 05/03/24 07:40 Blood Pressure 109/70 05/03/24 07:40 Pulse Oximetry 100 05/03/24 07:40 Oxygen Delivery Room Air 05/03/24 07:40 Temperature 97.7 F 05/03/24 07:40 Pulse Rate 100 05/03/24 07:40 Respiratory Rate 16 05/03/24 07:40 Blood Pressure 109/70 05/03/24 07:40 Pulse Oximetry 100 05/03/24 07:40 Oxygen Delivery Room Air 05/03/24 07:40 Medical Decision Making [facility] Narrative Medical decision making narrative: 23-year-old female presents emergency department for evaluation for a wound check of her hand. Patient was started on topical antibiotic the emergency department discharged home with Bactroban. Patient was comfortable with plan for discharge and close follow-up. Differential Diagnosis Differential Diagnosis: cellulitis, scar tissue, impetigo, healing burn Vital Signs Vital Signs: Vital Signs Temperature 97.7 F 05/03/24 07:40 Pulse Rate 100 05/03/24 07:40 Respiratory Rate 16 05/03/24 07:40 Blood Pressure 109/70 05/03/24 07:40 Pulse Oximetry 100 05/03/24 07:40 Oxygen Delivery Room Air 05/03/24 07:40 Temperature 97.7 F 05/03/24 07:40 Pulse Rate 100 05/03/24 07:40 Respiratory Rate 16 05/03/24 07:40 Blood Pressure 109/70 05/03/24 07:40 Pulse Oximetry 100 05/03/24 07:40 Oxygen Delivery Room Air 05/03/24 07:40 Discharge Plan Discharge Clinical Impression: Burn of hand Patient Disposition: Home, Self-Care Condition: Stable Instructions: Antibiotic Form, Second-Degree Burn (ED) Additional Instructions: Antibiotic ointment wound as directed. Have close follow-up with your primary care physician. Prescriptions: New mupirocin 2 % ointment 1 applic topical BID Qty: 22 0RF No Action azelastine 137 mcg (0.1 %) aerosol,spray 1 - 2 spray intranasal Q12H Qty: 30 0RF Rx Instructions: administer into each nostril. Aim back/up/out cephalexin 500 mg capsule 500 mg PO Q8H 7 Days Qty: 21 0RF phenazopyridine [Pyridium] 100 mg tablet 100 mg PO TID PRN (Reason: pain) Qty: 6 0RF ibuprofen 800 mg tablet 800 mg PO TID PRN (Reason: pain) Qty: 20 0RF cyclobenzaprine 5 mg tablet 5 mg PO TID PRN (Reason: muscle spasm) Qty: 10 0RF fluticasone propionate 50 mcg/actuation spray,suspension 2 spray intranasal BID PRN (Reason: nasal congestion) Qty: 16 0RF Rx Instructions: administer into each nostril Follow-up/Referrals: Violet,Jayda Wasserman MD [Primary Care Provider] -
[2024-05-03] MEDS: MUPIROCIN 2% OINT 22 GM TUBE 1 APPLIC TOPICAL (08:42)
== END 2024-05-03 08:45 | disposition home or self-care (01) ==
PROVIDERS: Emergency Provider Emergency Medicine; PCP Family Medicine
DX: T23.201A Burn of second degree of right hand, unspecified site, initial encounter (principal); X10.1XXA Contact with hot food, initial encounter
CPT/HCPCS: 99283; A9270

== ENCOUNTER 2024-05-17 17:57 | Emergency (ER) | payer BC, OTHER, SELFPAY ==
--- NOTE | ~2024-05-17 | XR_ITS ---
CHEST RADIOGRAPH, PA AND LATERAL CLINICAL HISTORY: cough fever . COMPARISON: None available TECHNIQUE: PA and lateral views of the chest. FINDINGS The cardiomediastinal silhouette is unremarkable. The lungs are clear. Visualized osseous structures and soft tissues are unremarkable. IMPRESSION: No focal infiltrate or effusion. Reviewed, dictated and finalized at location [facility]. T CARD CLERK
[2024-05-17 18:10] VITALS: BP 117/76; PULSE 94; RESP 16; TEMP 36.3; O2SAT 100
--- NOTE | 2024-05-17 18:23 | ED_ITS ---
HPI - URI/Sore Throat General Chief Complaint: Upper Respiratory Infection Stated Complaint: cough/sob/fever Source: patient Mode of arrival: ambulatory Limitations: no limitations History of Present Illness HPI Narrative: 23-year-old male presented for complaint of cough for 1 week, and nasal congestion for about 2 weeks. Reports temp up to 100.1, sore throat and body aches. Cough is occasionally productive of green sputum. Taking DayQuil and Nyquil. Denies sob, wheezing, n/v/d. Related Data Allergies Allergy/AdvReac Type Severity Reaction Status Date / Time cat dander Allergy Intermediate SNEEZE, Verified 05/17/24 18:15 ITCH, RASHES, EYES WATER, THROAT HURTS bee venom protein (honey bee) Allergy Anaphylactic Verified 05/17/24 18:15 Shock chocolate flavor AdvReac Migraine Verified 05/17/24 18:15 Review of Systems Review of Systems: CONSTITUTIONAL: reports body aches, fever EYES: Denies visual changes, redness, or discharge. ENT: reports rhinorrhea, congestion, sore throat CARDIOVASCULAR: Denies chest pain, palpitations, or edema. RESPIRATORY: Reports cough, denies sob GASTROINTESTINAL: Denies abdominal pain, nausea, vomiting, or diarrhea. MUSCULOSKELETAL: Denies back pain, joint pain, or myalgia. NEUROLOGIC: Denies headache All systems reviewed & are unremarkable except as noted in HPI and below PMFSH Past Medical History Medical History Abnormal CT scan Anxiety Anxiety Contusion of right hand Diarrhea Head injury Headache Left wrist sprain Nausea and vomiting (normal spontaneous vaginal delivery) Other sprain of left foot, initial encounter RUQ pain Scoliosis Toe fracture, right Tonsil pain Wrist fracture, left (06/13/19) Surgical History Surgical History History of removal of skin mole lt , June 2015 Family History Family History Other Diabetes mellitus No pertinent family history Social History Social History Social History: Caffeine-daily Smoking status: Never smoker Tobacco type: e-cigarettes/vaping Second hand tobacco smoke exposure: No Additional smoking assessment comments: Pt and significant other vaped. Significant other also stopped vaping 2-3 Alcohol intake: never Substance use: current Substance use type: marijuana Last use: 12/13/2022 Do You Feel Safe in your Home?: Yes Lack of Transportation: No Lack of Food: Never True Current Housing: I Have Housing Concerned About Future Housing: No Difficulty Paying Gas/Electric Bills: No Difficulty Paying for Meds: No Currently Unemployed: No Education: High School Diploma/GED Difficulty w/ Childcare or Family Care: No Living arrangements: with family Gender identity (if verbalized by the patient): Female Sexual Orientation (if Verbalized by the Patient): Straight or Heterosexual Spiritual care concerns: No Comments At time of signature, I have reviewed and agree with nursing past medical, surgical, social and family history unless otherwise noted. Please see nursing chart for further information. There is no relevant family history pertinent to the presenting complaint Exam Narrative: GENERAL: Well-appearing EYES: EOMI. No redness or drainage. Conjunctivae normal. ENT: Mucous membranes pink and moist. No rhinorrhea. TMs normal bilaterally. Throat normal. Uvula midline. NECK: Normal AROM. Supple. CHEST: No respiratory distress. Lungs clear to all black. HEART: Regular rate and rhythm. No murmur appreciated. ABDOMEN: Soft, nontender, nondistended, normal active bowel sounds. SKIN: Warm, dry, Capillary refill normal. Normal skin turgor. NEURO: Alert and oriented x3. Gait steady. PSYCH: Normal affect. Course Course Emergency Course: Patient is aware of diagnosis, understands and agrees to treatment plan. Anticipatory guidance given. Patient agrees to follow-up as directed and is aware of reasons to seek care at the emergency department. Portions of this record may have been created with voice recognition software Level of Care: Express Care Visit Vital Signs Vital signs: Vital Signs Temperature 97.3 F L 05/17/24 18:10 Pulse Rate 94 05/17/24 18:10 Respiratory Rate 16 05/17/24 18:10 Blood Pressure 117/76 05/17/24 18:10 Pulse Oximetry 100 05/17/24 18:10 Temperature 97.3 F L 05/17/24 18:10 Pulse Rate 94 05/17/24 18:10 Respiratory Rate 16 05/17/24 18:10 Blood Pressure 117/76 05/17/24 18:10 Pulse Oximetry 100 05/17/24 18:10 MDM - URI/Sore Throat MDM Narrative Medical decision making narrative: Discussed physical exam findings and CXR. Reviewed Rx. Advised supportive measures and signs/symptoms to go to the ER. Pt is appropriate for outpt jaron atment and f/u. Differential Diagnosis Differential diagnosis: Likely upper respiratory infection, sinusitis, viral infection, bronchitis and other (Pneumonia) Imaging Data Radiologist's impression: Patient: Neisha Marcum : 2000 MR#: [id number] Age: 23 Acct:[id number] Loc: [id number] ADM Date: 05/17/24Attending Dr: Ordering Physician: Bia Bunch APRN Date of Service: 05/17/24 Procedure(s): XR chest 2V Accession Number(s): [id number] cc: Bia Bunch APRN; Violet, Jayda Agustin MD~ CHEST RADIOGRAPH, PA AND LATERAL CLINICAL HISTORY: cough fever . COMPARISON: None available TECHNIQUE: PA and lateral views of the chest. FINDINGS The cardiomediastinal silhouette is unremarkable. The lungs are clear. Visualized osseous structures and soft tissues are unremarkable. IMPRESSION: No focal infiltrate or effusion. Discharge Plan Discharge Clinical Impression: Bronchitis Patient Disposition: Home, Self-Care Condition: Stable Instructions: Acute Bronchitis (ED) Additional Instructions: Acute bronchitis can be contagious because it is usually caused by infection with a virus or bacteria. It is usually for a few days but you can be contagious for up to one week. Avoid crowds until you do not have a fever and symptoms are improved Take medication as directed Recommend Flonase spray and Zyrtec (or Claritin/Jenn) over the counter Cough syrup may cause drowsiness; avoid driving or take it at night time. Tylenol 1000mg every 8 hours as needed for pain Symptomatic treatment includes: rest, fluids, and increase humidity of the air at home. Follow up with your primary care provider as needed in 1 week Go to the ER for worsening symptoms or concerns Prescriptions: New benzonatate 200 mg capsule 200 mg PO TID PRN (Reason: cough) Qty: 20 0RF methylprednisolone [Medrol (Mitch)] 4 mg tablets,dose pack See Rx Instructions .ROUTE .COMPLEX Qty: 21 0RF Rx Instructions: orally per package directions No Action azelastine 137 mcg (0.1 %) aerosol,spray 1 - 2 spray intranasal Q12H Qty: 30 0RF Rx Instructions: administer into each nostril. Aim back/up/out cephalexin 500 mg capsule 500 mg PO Q8H 7 Days Qty: 21 0RF phenazopyridine [Pyridium] 100 mg tablet 100 mg PO TID PRN (Reason: pain) Qty: 6 0RF ibuprofen 800 mg tablet 800 mg PO TID PRN (Reason: pain) Qty: 20 0RF cyclobenzaprine 5 mg tablet 5 mg PO TID PRN (Reason: muscle spasm) Qty: 10 0RF mupirocin 2 % ointment 1 applic topical BID Qty: 22 0RF fluticasone propionate 50 mcg/actuation spray,suspension 2 spray intranasal BID PRN (Reason: nasal congestion) Qty: 16 0RF Rx Instructions: administer into each nostril Follow-up/Referrals: Violet,Jayda Wasserman MD [Primary Care Provider] - Stand Alone Forms: Work/School Release IP Time of Disposition: 18:39
== END 2024-05-17 18:44 | disposition home or self-care (01) ==
PROVIDERS: Emergency Provider Nurse Practitioner Family; PCP Family Medicine
DX: J40 Bronchitis, not specified as acute or chronic (principal)
CPT/HCPCS: 71046; 99213; G0463

== ENCOUNTER 2024-06-07 03:44 | Emergency (ER) | payer BC, SELFPAY ==
--- NOTE | ~2024-06-07 | XR_ITS ---
Clinical Indication: Cough PA and lateral views of the chest: Comparison: 05/17/2024 Findings: The lungs are clear, without evidence of focal consolidation or pleural effusion. Cardiome diastinal silhouette is within normal limits. Bones and soft tissues are unremarkable. Impression: Normal chest. Reviewed, dictated and finalized at location . [facility] Impression: Normal chest.
[2024-06-07 03:49] VITALS: BP 126/84; PULSE 87; RESP 19; TEMP 36.2; O2SAT 100
[2024-06-07 04:18] VITALS: PULSE 77; RESP 17; O2SAT 99
--- NOTE | 2024-06-07 05:05 | ED_ITS ---
HPI - General Adult General Chief complaint: Upper Respiratory Infection Stated complaint: cough for 1.5 months Time Seen by Provider: 06/07/24 04:18 History of Present Illness HPI narrative: Patient a 23-year-old female who presents emergency department chief complaint of cough. Patient reports that for over a month she has had a cough that is then productive of yellow sputum. Patient reports no fever reports that she was treated with steroids at her primary care provider's office and reports that she was also treated with cough medication. The patient states the symptoms have not improved Related Data Allergies Allergy/AdvReac Type Severity Reaction Status Date / Time cat dander Allergy Intermediate SNEEZE, Verified 06/07/24 03:44 ITCH, RASHES, EYES WATER, THROAT HURTS bee venom protein (honey bee) Allergy Anaphylactic Verified 06/07/24 03:44 Shock chocolate flavor AdvReac Migraine Verified 06/07/24 03:44 Review of Systems Review of Systems: A 10 system review of systems was completed on the patient and is negative except for what is stated in the HPI. Nursing and ancillary documentation was reviewed. [facility] Past Medical History Medical History Abnormal CT scan Anxiety Anxiety Contusion of right hand Diarrhea Head injury Headache Left wrist sprain Nausea and vomiting (normal spontaneous vaginal delivery) Other sprain of left foot, initial encounter RUQ pain Scoliosis Toe fracture, right Tonsil pain Wrist fracture, left (06/13/19) Surgical History Surgical History History of removal of skin mole lt June 2015 Family History Family History Other Diabetes mellitus No pertinent family history Social History Social History Social History: Caffeine-daily Smoking status: Never smoker Tobacco type: e-cigarettes/vaping Second hand tobacco smoke exposure: No Additional smoking assessment comments: Pt and significant other vaped. Significant other also stopped vaping 2-3 Alcohol intake: never Substance use: current Substance use type: marijuana Last use: 12/13/2022 Do You Feel Safe in your Home?: Yes Lack of Transportation: No Lack of Food: Never True Current Housing: I Have Housing Concerned About Future Housing: No Difficulty Paying Gas/Electric Bills: No Difficulty Paying for Meds: No Currently Unemployed: No Education: High School Diploma/GED Difficulty w/ Childcare or Family Care: No Living arrangements: with family Gender identity (if verbalized by the patient): Female Sexual Orientation (if Verbalized by the Patient): Straight or Heterosexual Spiritual care concerns: No Exam Narrative: GENERAL: Well-appearing, well-nourished, and in no acute distress. HEAD: Normocephalic, atraumatic. EYES: PERRLA and EOMI. ENT: Nares clear, no rhinorrhea or epistaxis. Mucous membranes moist. NECK: Supple. CHEST: Clear to auscultation. No respiratory distress. HEART: Regular rate and rhythm. No murmur heard. Normal peripheral pulses. ABDOMEN: Soft, nontender, nondistended, normal active bowel sounds. EXTREMITIES: Normal range of motion. No edema. SKIN: Warm, dry, no rash. NEURO: No focal deficits. Alert and oriented x3. PSYCH: Normal mood and affect. Course Vital Signs Vital signs: Vital Signs Temperature 36.2 C L 06/07/24 03:49 Pulse Rate 87 06/07/24 03:49 Respiratory Rate 19 06/07/24 03:49 Blood Pressure 126/84 06/07/24 03:49 Pulse Oximetry 100 06/07/24 03:49 Oxygen Delivery Room Air 06/07/24 03:49 Temperature 36.2 C L 06/07/24 03:49 Pulse Rate 77 06/07/24 04:18 Respiratory Rate 17 06/07/24 04:18 Blood Pressure 126/84 06/07/24 03:49 Pulse Oximetry 99 06/07/24 04:18 Oxygen Delivery Room Air 06/07/24 04:15 Medical Decision Making [facility] Narrative Medical decision making narrative: Differential diagnosis includes pneumonia, bronchitis, atypical pneumonia, Chest x-ray showed no focal infiltrate given the patient's symptoms have been ongoing for over a month the patient will be started on doxycycline also steroids and will be given antitussive Vital Signs Vital Signs: Vital Signs Temperature 36.2 C L 06/07/24 03:49 Pulse Rate 87 06/07/24 03:49 Respiratory Rate 19 06/07/24 03:49 Blood Pressure 126/84 06/07/24 03:49 Pulse Oximetry 100 06/07/24 03:49 Oxygen Delivery Room Air 06/07/24 03:49 Temperature 36.2 C L 06/07/24 03:49 Pulse Rate 77 06/07/24 04:18 Respiratory Rate 17 06/07/24 04:18 Blood Pressure 126/84 06/07/24 03:49 Pulse Oximetry 99 06/07/24 04:18 Oxygen Delivery Room Air 06/07/24 04:15 Lab Data Labs: Lab Results 06/07/24 Range/Units 04:44 Influenza A (RT-PCR) Negative (Negative) Influenza B (RT-PCR) Negative (Negative) RSV (RT-PCR) Negative (Negative) SARS-CoV-2 RNA (RT-PCR) Negative (Negative) Discharge Plan Discharge Clinical Impression: Acute bacterial bronchitis Patient Disposition: Home, Self-Care Condition: Stable Instructions: Antibiotic Form, Acute Bronchitis (ED) Additional Instructions: Your treated with antibiotics since her symptoms have been going on going for over a month. At this point there was concern for a bacterial bronchitis as most bronchitis is caused by a virus Prescriptions: New doxycycline hyclate 100 mg tablet 100 mg PO BID Qty: 14 0RF prednisone 20 mg tablet 40 mg PO DAILY 5 Days Qty: 10 0RF benzonatate 200 mg capsule 200 mg PO TID PRN (Reason: cough) Qty: 21 0RF No Action benzonatate 200 mg capsule 200 mg PO TID PRN (Reason: cough) Qty: 20 0RF methylprednisolone [Medrol (Mitch)] 4 mg tablets,dose pack See Rx Instructions .ROUTE .COMPLEX Qty: 21 0RF Rx Instructions: orally per package directions azelastine 137 mcg (0.1 %) aerosol,spray 1 - 2 spray intranasal Q12H Qty: 30 0RF Rx Instructions: administer into each nostril. Aim back/up/out cephalexin 500 mg capsule 500 mg PO Q8H 7 Days Qty: 21 0RF phenazopyridine [Pyridium] 100 mg tablet 100 mg PO TID PRN (Reason: pain) Qty: 6 0RF ibuprofen 800 mg tablet 800 mg PO TID PRN (Reason: pain) Qty: 20 0RF cyclobenzaprine 5 mg tablet 5 mg PO TID PRN (Reason: muscle spasm) Qty: 10 0RF mupirocin 2 % ointment 1 applic topical BID Qty: 22 0RF fluticasone propionate 50 mcg/actuation spray,suspension 2 spray intranasal BID PRN (Reason: nasal congestion) Qty: 16 0RF Rx Instructions: administer into each nostril Follow-up/Referrals: Violet,Jayda Wasserman MD [Primary Care Provider] - Time of Disposition: 05:39
[2024-06-07 05:25] LABS: Influenza A QL RT-PCR Negative (Negative); Influenza B QL RT-PCR Negative (Negative); RSV RNA, RT-PCR Negative (Negative); SARS-CoV-2 RNA PCR Negative (Negative)
== END 2024-06-07 05:49 | disposition home or self-care (01) ==
LOC: ANHED 05:35
PROVIDERS: Emergency Provider Emergency Medicine; PCP Family Medicine
DX: J20.8 Acute bronchitis due to other specified organisms (principal); Z20.822 Contact with and (suspected) exposure to COVID-19; F17.290 Nicotine dependence, other tobacco product, uncomplicated
CPT/HCPCS: 71046; 87637; 99283

== ENCOUNTER 2024-12-16 19:55 | Emergency (ER) | payer BC, MEDICAID, SELFPAY ==
--- NOTE | ~2024-12-16 | XR_ITS ---
HISTORY: twist. LATERAL LEFT ANKLE PAIN. COMPARISON: None TECHNIQUE: 4 views of the left ankle were performed FINDINGS: No acute fracture or dislocation. No significant soft tissue swelling. The ankle mortise is preserved. Bone mineralization is age-appropriate. IMPRESSION: No acute fracture or dislocation Reviewed, dictated and finalized at location A.
[2024-12-16 19:57] VITALS: BP 109/83; PULSE 113; RESP 14; TEMP 36.9; O2SAT 97
--- OUTSIDE RECORDS SUMMARY | 2024-12-16 19:57 | XMS_ITS | Data Portability ---
Author Organization [facility] [employer], Main Office Address [address] [place] [address] Assessment No assessment recorded. Plan of Treatment Reminders Order Date Submit Date Provider Last Modified By Organization Details Last Modified Time Details Appointments None recorded. Lab hemoglobin A1C, fingerstick 2024 025 [facility] [place], [address] [place] [address], [place], [address], 5 15:09:17 urinalysis, dipstick 2022 023 [facility] [address], [place], [address], 3 10:01:28 urinalysis complete, reflex culture 2022 023 [email or web address] [facility], [address] [place], [address], 3 11:18:37 Referral physical therapist referral - *Please call pt to schedule* 2022 023 [email or web address] 256 [facility], [address], [place], [address], 3 09:07:30 Procedures None recorded. Surgeries None recorded. Imaging XR, knee 2022 023 [email or web address] 256 [facility], [address], [place], [address], 3 08:55:59 Medication Orders EpiPen 2-Mitch 0.3 mg/0.3 mL injection, auto-inject or [address] [facility] #62801, [address] [place], [place], [id number], 4 09:54:50 escitalopra m 20 mg tablet [address] [facility] #05281, [address] [place] [address], [id number], 4 09:54:48 buspirone 10 mg tablet [address] [facility] #20041, [address] [place] [address], [id number], 4 09:54:47 EpiPen 2-Mitch 0.3 mg/0.3 mL injection, auto-inject or [address] [facility] #36425, [address] [place] [address], [id number], 3 14:51:34 ondansetron 4 mg disintegrat ing tablet [address] [facility] #06463, [address] [place] [address], [id number], 4 09:35:00 dicyclomine 10 mg capsule [address] [facility] #21502, [address] [place] [address], [id number], 4 09:33:34 Cipro 500 mg tablet [address] [facility]80361, [address] [place] [address], [id number], 09:33:29 Patient TargetsNo targets recorded. Patient InstructionsNo instructions recorded. Reason for Referral Physical Therapist Referral for Pain of left knee joint *Please call pt to schedule* Referring Physician: Naveen Wei, [facility], Encounter Date: 02/15/2023 Results Created Date Observation Date Name Description Value Unit Range Abnormal Flag Note LastModifiedBy Organization Detail LastModifiedTime 02/16/2002/15/2023 URINA LYSIS COMPL ETE/I RIS W/RFX color ORANGE abnormal Not Available [facility] (Lab) [address] [place], [address], 02/15/2023 19:24:33 02/16/20 23 02/15/2023 URINA LYSIS COMPL ETE/I RIS W/RFX appear EXTRA TURBID abnormal Not Available [facility] (Lab) [address] [place], [address], 02/15/2023 19:24:33 02/16/20 23 02/15/2023 URINA LYSIS COMPL ETE/I RIS W/RFX specific gravity 1.032 1.001- 1.030 high Not Available [facility] (Lab) [address] [place], [address], 02/15/2023 19:24:33 02/16/20 23 02/15/2023 URINA LYSIS COMPL ETE/I RIS W/RFX pH 5.5 pH_un its 5.0-9. 0 Not Available [facility] (Lab) [address] [place], [address], 02/15/2023 19:24:33 02/16/20 23 02/15/2023 URINA LYSIS COMPL ETE/I RIS W/RFX leukocytes NEGATI VE venice/u L negati ve- Not Available [facility] (Lab) [address] [place], [address], 02/15/2023 19:24:33 02/16/20 23 02/15/2023 URINA LYSIS COMPL ETE/I RIS W/RFX nitrite NEGATI VE negati ve- Not Available [facility] (Lab) [address] [place], [address], 02/15/2023 19:24:33 02/16/20 23 02/15/2023 URINA LYSIS COMPL ETE/I RIS W/RFX protein 20 mg/dL negati ve- abnormal Not Available [facility] (Lab) [address] [place], [address], 02/15/2023 19:24:33 02/16/20 23 02/15/2023 URINA LYSIS COMPL ETE/I RIS W/RFX glucose NORMAL mg/dL normal - Not Available [facility] (Lab) [address] [place], [address], 02/15/2023 19:24:33 02/16/20 23 02/15/2023 URINA LYSIS COMPL ETE/I RIS W/RFX ketones NEGATI VE mg/dL negati ve- Not Available [facility] (Lab) [address] [place], [address], 02/15/2023 19:24:33 02/16/20 23 02/15/2023 URINA LYSIS COMPL ETE/I RIS W/RFX urobilinogen 2 mg/dL normal - abnormal Not Available [facility] (Lab) [address] [place], [address], 02/15/2023 19:24:33 02/16/20 23 02/15/2023 URINA LYSIS COMPL ETE/I RIS W/RFX bilirubin NEGATI VE mg/dL negati ve- Not Available [facility] (Lab) [address] [place], [address], 02/15/2023 19:24:33 02/16/20 23 02/15/2023 URINA LYSIS COMPL ETE/I RIS W/RFX blood NEGATI VE mg/dL negati ve- Not Available [facility] (Lab) [address] [place], [address], 02/15/2023 19:24:33 02/16/20 23 02/15/2023 URINA LYSIS COMPL ETE/I RIS W/RFX white blood cells 0-8 /i??h pfi?? 0-8 Not Available [facility] (Lab) [address] [place], [address], 02/15/2023 19:24:33 02/16/20 23 02/15/2023 URINA LYSIS COMPL ETE/I RIS W/RFX red blood cells 0-4 /i??h pfi?? 0-4 Not Available [facility] (Lab) [address] [facility] [place], [address], 02/15/2023 19:24:33 02/16/20 23 02/15/2023 URINA LYSIS COMPL ETE/I RIS W/RFX bacteria NONE Not Available [facility] (Lab) [address] [place], [address], 02/15/2023 19:24:33 02/16/20 23 02/15/2023 URINA LYSIS COMPL ETE/I RIS W/RFX mucous MANY /i??l pfi?? abnormal Not Available [facility] (Lab) [address] [place], [address], 02/15/2023 19:24:33 02/16/20 23 02/15/2023 URINA LYSIS COMPL ETE/I RIS W/RFX squamous epithelial MODERA TE /i??l pfi?? abnormal Not Available [facility] (Lab) [address] [place], [address], 02/15/2023 19:24:33 02/16/20 23 02/15/2023 urina lysis , dipst ick Appearance Cloudy Not Available [address], [place], [address], 02/15/2023 09:48:53 02/16/2002/15/2023 urina lysis , dipst ick Color Dark Yellow Not Available [address], [place], [address], 02/15/2023 09:48:53 02/16/2002/15/2023 urina lysis , dipst ick Glucose (reference range: negative mg/dl) Negati ve Not Available [address], [place], [address], 02/15/2023 09:48:53 02/16/2002/15/2023 urina lysis , dipst ick Bilirubin (reference range: negative mg/dl) Negati ve Not Available [address], [place], [address], 02/15/2023 09:48:53 02/16/2002/15/2023 urina lysis , dipst ick Ketone (reference range: negative mg/dl) Trace Not Available [address], [place], [address], 02/15/2023 09:48:53 02/16/2002/15/2023 urina lysis , dipst ick Specific [place] (reference range: 1.005-1.030) 1.030 Not Available [address], [place], [address], 02/15/2023 09:48:53 02/16/2002/15/2023 urina lysis , dipst ick Blood (reference range: negative [place]/ l) Negati ve Not Available [address], [place], [address], 02/15/2023 09:48:53 02/16/2002/15/2023 urina lysis , dipst ick pH (reference range: 5-7) 5.5 Not Available [address], [place], [address], 02/15/2023 09:48:53 02/16/20 23 02/15/2023 urina lysis , dipst ick Protein (reference range: negative mg/dl) Trace Not Available [address], [place], [address], 02/15/2023 09:48:53 02/16/20 23 02/15/2023 urina lysis , dipst ick Urobilinogen (reference range: 0.2-1 mg/dl) 1 Not Available [address], [place], [address], 02/15/2023 09:48:53 02/16/2002/15/2023 urina lysis , dipst ick Nitrite (reference rage: negative mg/dl) negati ve Not Available [address], [place], [address], 02/15/2023 09:48:53 02/16/20 23 02/15/2023 urina lysis , dipst ick Leukocytes (reference range: negative venice/ l) Negati ve Not Available [address], [place], [address], 02/15/2023 09:48:53 09/13/19 25 09/12/2024 hemog lobin A1C, finge rstic k HgbA1C 5.6 Not Available [facility] [address] [facility], [place], [address], 09/12/2024 12:13:00 05/11/20 22 05/11/2022 XR, foot No observ ation record ed. [id number] [address], [place], [address], 09/02/2022 18:06:28 05/11/20 22 05/11/2022 XR, ankle No observ ation record ed. [id number] [address], [place], [address], 09/02/2022 18:06:28 10/20/19 23 10/19/2022 CT, abdom en + pelvi s, w/ contr ast No observ ation record ed. [address] [address], [place], [address], 10/28/2022 12:15:18 10/28/19 23 10/27/2022 CT, abdom en + pelvi s, w/ contr ast No observ ation record ed. [address] [address], [place], [address], 10/28/2022 12:15:00 04/12/20 23 04/12/2023 XR, hand No observ ation record ed. [address] [address], [place], [address], 11/20/2023 11:08:12 04/16/20 23 04/16/2023 XR, hand No observ ation record ed. [address] [address], [place], [address], 11/20/2023 11:08:33 11/03/19 24 11/03/2023 NM, hepat obili sussy scan No observ ation record ed. [address] [address], [place], [address], 11/20/2023 11:08:52 01/30/20 24 01/30/2024 CT, abdom en + pelvi s, w/o contr ast No observ ation record ed. [email or web address] [facility] [address] [facility] [address], [place], [address], 02/07/2024 14:18:01 05/17/20 24 05/17/2024 XR, chest , 2 view No observ ation record ed. [email or web address] [facility] [place] [address] [facility], [place], [address], 05/22/2024 11:11:04 06/07/20 24 06/07/2024 XR, chest , 1 view No observ ation record ed. [email or web address] [facility] [address] [facility] [address], [place], [address], 08/10/2024 14:41:22 Result Notes None recorded. Problems Name Problem SNOMED Code Status Onset Date Resolution Date Notes Provider Name and Address Organization Details Recorded Time Pain in throat 100317695 Active Not Available [employer] 3 18:05:28 Headache 80572823 Active Not Available [employer] 3 18:05:28 Dizziness 135056907 Active Not Available [employer] 3 18:05:28 Traveler' s diarrhea 33011130 Completed 202209/12/2024 BRI Suarez [address], [place], [address] , [employer] [facility] [employer] 5 12:07:40 Nausea, vomiting and diarrhea 1500683 Active 2022 PUMA Granger [address], [address], [place], [address] , [employer] [facility] [employer] 3 14:45:17 Pain of left knee joint 10846055082 4107 Active 2022 BRI Leonard [address], [address], [place], [address] , [employer] [facility] [employer] 3 09:45:11 Right flank pain 287064884 Active 2022 BRI Leonard [address], [place], [address] , [employer] [facility] [employer] [facility] 3 09:46:36 Cellul[employer] s 741143367 Active 2023 EldonNATASHA Goldsmith[facility] [address], [place], [address] , [employer] [facility] [employer] 4 12:57:12 Abscess of oral tissue 51752006 Active 2023 BRI Chapman-C [address], [address], [place], [address] , [employer] [facility] [employer] 4 12:05:41 Anxiety 57930340 Active 2023 Vika Huerta, [employer] [address], [place], [address] , [employer] [facility] [employer] 4 09:47:49 Hypoglyce danyell 524293379 Active 2024 Vika Huerta, [employer] [address], [place], [address] , [employer] 5 12:12:49 Problem Notes None recorded. Procedures Surgical History Date Name Laterality Status Provider Name and Address Organization Details Recorded Time 11/23/2022 EGD completed Sarah Wiggins LPN [employer] [facility] [employer] 11/23/2022 15:27:31 tonsilecto my/adenoid s completed Rachele Villarreal RN [facility] [employer] [facility] 05/30/2024 09:41:06 Imaging Results None recorded. Procedure Notes None recorded. Medical Equipment None Reported. Allergies Allergen ID Allergen Name Allergen Category Reaction Reaction Severity Criticality Documentation Date Start Date Code Code System Note Provider Name and Address Organization Details Recorded Time 40584 cat dander environme nt Not available Not available Not available 09/02/2022 09070 UNK Not Available [facility] 3 18:06:25 95736 honey bee venom medicatio n other Not available Not available 09/02/2022 92715 7 RxNorm Not Available [facility] 3 18:06:25 Medications Name Sig Start Date Stop Date Status Note LastModified by Organization Details LastModified Time cyclobenzap rine 10 mg tablet active Not Available Not Available Not Available BD Alcohol Swabs 05/30 completed Not Available Not Available Not Available acetaminoph en 325 mg tablet 05/30 completed Not Available Not Available Not Available cefuroxime axetil 250 mg tablet 04/12 completed Not Available Not Available Not Available prednisolon e sodium phosphate 15 mg/5 mL (3 mg/mL) oral solution 03/16 completed Not Available Not Available Not Available cetirizine 10 mg tablet TK 1 T PO QD 09/11 completed Not Available Not Available Not Available azithromyci n 250 mg tablet TAKE 2 TABLETS BY MOUTH FOR 1 DAY THEN TAKE 1 TABLET BY MOUTH DAILY FOR 4 DAYS 05/30 completed Not Available Not Available Not Available ibuprofen 800 mg tablet TAKE 1 TABLET BY MOUTH EVERY 6 HOURS NEEDED FOR PAIN 05/30 completed Not Available Not Available Not Available Lidocaine Viscous 2 % mucosal solution GARGLE AND SPIT 5ML QID PRN P 05/30 completed Not Available Not Available Not Available ofloxacin 0.3 % eye drops 05/30 completed Not Available Not Available Not Available fluconazole 150 mg tablet 1 po x 1 active Not Available Not Available Not Available benzonatate 200 mg capsule TAKE 1 CAPSULE BY MOUTH THREE TIMES DAILY NEEDED FOR COUGH 09/12 completed Not Available Not Available Not Available amoxicillin 600 mg-potassiu m clavulanate 42.9 mg/5 mL oral suspension TK 7.5 ML PO BID FOR 7 DAYS 10/13 completed Not Available Not Available Not Available metronidazo le 0.75 % (37.5 mg/5 gram) vaginal gel INSERT 1 APPLICATO RFUL VAGINALLY AT BEDTIME FOR 5 DAYS 05/30 completed Not Available Not Available Not Available ondansetron HCl 4 mg tablet TK 1 TO 2 TS PO Q 8 H PRF NAUSEA OR VOM 05/30 completed Not Available Not Available Not Available prednisone 20 mg tablet TAKE 2 TABLETS BY MOUTH DAILY FOR 5 DAYS 09/12 completed Not Available Not Available Not Available Tubersol 5 tub. unit/0.1 mL intradermal injection solution Inject 0.1 mL every day by intraderm al route for 1 day. 05/30 completed Not Available Not Available Not Available acetaminoph en 300 mg-codeine 30 mg tablet TAKE 1 TO 2 TABLETS BY MOUTH EVERY 4 TO 6 HOURS NEEDED FOR PAIN active Not Available Not Available No t Available ciprofloxac in 500 mg tablet TAKE 1 TABLET BY MOUTH EVERY 12 HOURS FOR 7 DAYS 05/30 completed Not Available Not Available Not Available sulfamethox azole 800 mg-trimetho prim 160 mg tablet TAKE 1 TABLET BY MOUTH EVERY 12 HOURS FOR 7 DAYS 05/30 completed Not Available Not Available Not Available hydrocodone 10 mg-acetamin ophen 325 mg tablet TAKE 1 TO 2 TABLETS BY MOUTH EVERY 6 HOURS NEEDED FOR PAIN active Not Available Not Available No t Available triamcinolo ne acetonide 0.1 % topical cream APPLY THIN LAYER TOPICALLY TO THE AFFECTED AREA 2 TO 3 TIMES DAILY NEEDED 05/30 completed Not Available Not Available Not Available Kenalog 40 mg/mL suspension for injection Take 1 mL by injection route. 08/09 completed Not Available Not Available Not Available amoxicillin 400 mg-potassiu m clavulanate 57 mg/5 mL oral suspension 03/16 completed Not Available Not Available Not Available amoxicillin 875 mg tablet TAKE 1 TABLET BY MOUTH EVERY 12 HOURS FOR 7 DAYS 05/30 completed Not Available Not Available Not Available famotidine 20 mg tablet TK 1 T PO BID active Not Available Not Available No t Available omeprazole 10 mg capsule,del ayed release TAKE 1 CAPSULE BY MOUTH DAILY 05/30 completed Not Available Not Available Not Available lorazepam 0.5 mg tablet 12/10 completed Not Available Not Available Not Available dicyclomine 20 mg tablet 05/30 completed Not Available Not Available Not Available phenazopyri dine 100 mg tablet TAKE 1 TABLET BY MOUTH THREE TIMES DAILY NEEDED FOR PAIN 05/30 completed Not Available Not Available Not Available cephalexin 500 mg capsule TAKE 1 CAPSULE BY MOUTH EVERY 8 HOURS FOR 7 DAYS 05/30 completed Not Available Not Available Not Available paroxetine 20 mg tablet TK 1 T PO QD 04/21 completed Not Available Not Available Not Available erythromyci n 5 mg/gram (0.5 %) eye ointment APPLY 1 CM RIBBON INTO THE LOWER CONJUCTIV AL IRINEO OF AFFECTED EYE THREE TIMES DAILY 04/21 completed Not Available Not Available Not Available cephalexin 250 mg/5 mL oral suspension Take 10 mL twice a day by oral route for 7 days. 06/15 completed Not Available Not Available Not Available neomycin-po lymyxin-dex ameth 3.5 mg/mL-10,00 0 unit/mL-0.1 % eye drops One gtt per eye every 6-8 hours x 7 days 05/30 completed Not Available Not Available Not Available buspirone 10 mg tablet TAKE 1 TABLET BY MOUTH THREE TIMES DAILY NEEDED active Not Available Not Available No t Available docusate sodium 100 mg capsule TAKE 1 CAPSULE BY MOUTH TWICE DAILY 05/30 completed Not Available Not Available Not Available omeprazole 20 mg capsule,del ayed release 05/30 completed Not Available Not Available Not Available hydroxyzine HCl 25 mg tablet Take 1 tablet 3 times a day by oral route. 05/30 completed Not Available Not Available Not Available amoxicillin 400 mg/5 mL oral suspension TK 10ML PO Q 12 H FOR 10 DAYS active Not Available Not Available No t Available mupirocin 2 % topical ointment 05/30 completed Not Available Not Available Not Available ergocalcife rol (vitamin D2) 1,250 mcg (50,000 unit) capsule TAKE ONE CAPSULE BY MOUTH EVERY WEEK 04/21 completed Not Available Not Available Not Available lorazepam 1 mg tablet TK SS TO 1 TABLET PO BID PRN FOR ANXIETY 09/11 completed Not Available Not Available Not Available epinephrine 0.3 mg/0.3 mL injection, auto-inject or FOLLOW PACKAGE DIRECTION S active Not Available Not Available No t Available ibuprofen 600 mg tablet 09/11 completed Not Available Not Available Not Available methylpredn isolone 4 mg tablets in a dose pack FOLLOW PACKAGE DIRECTION S 05/30 completed Not Available Not Available Not Available ondansetron 4 mg disintegrat ing tablet DISSOLVE 2 TABLETS ON THE TONGUE TWICE DAILY NEEDED 05/30 completed Not Available Not Available Not Available fluticasone propionate 50 mcg/actuati on nasal spray,suspe nsion SHAKE LIQUID AND USE 2 SPRAYS IN EACH NOSTRIL DAILY 05/30 completed Not Available Not Available Not Available sertraline 50 mg tablet Take 1 tablet every day by oral route as directed for 30 days. 09/12 completed Not Available Not Available Not Available doxycycline hyclate 100 mg tablet TAKE 1 TABLET BY MOUTH TWICE DAILY 09/12 completed Not Available Not Available Not Available dicyclomine 10 mg capsule TAKE 1 CAPSULE BY MOUTH THREE TIMES DAILY NEEDED 05/30 completed Not Available Not Available Not Available ipratropium bromide 21 mcg (0.03 %) nasal spray 05/30 completed Not Available Not Available Not Available loratadine 10 mg tablet 05/30 completed Not Available Not Available Not Available amoxicillin 875 mg-potassiu m clavulanate 125 mg tablet Take 1 tablet every 12 hours by oral route for 7 days. 05/30 completed Not Available Not Available Not Available oxycodone 5 mg tablet TAKE 1 TABLET BY MOUTH EVERY 6 HOURS NEEDED FOR PAIN 05/30 completed Not Available Not Available Not Available neomycin-po lymyxin-hyd rocort 3.5 mg-10,000 unit/mL-1 % ear drops,susp Instill 2 drops every 4-6 hours by otic route for 7 days. active Not Available Not Available No t Available escitalopra m 10 mg tablet Take 1 tablet every day by oral route. 05/30 completed Not Available Not Available Not Available escitalopra m 20 mg tablet TAKE 1 TABLET BY MOUTH EVERY DAY DIRECTED active Not Available Not Available No t Available cyclobenzap rine 5 mg tablet TAKE 1 TABLET BY MOUTH THREE TIMES DAILY NEEDED FOR MUSCLE SPASM 05/30 completed Not Available Not Available Not Available bupropion HCl XL 150 mg 24 hr tablet, extended release Take 1 tablet every day by oral route. active Not Available Not Available No t Available FeroSul 325 mg (65 mg iron) tablet TAKE 1 TABLET BY MOUTH TWICE DAILY 04/21 completed Not Available Not Available Not Available OneTouch Verio test strips 05/30 completed Not Available Not Available Not Available Maggy 24 Fe 1 mg-20 mcg (24)/75 mg (4) tablet TAKE 1 TABLET BY MOUTH EVERY DAY 05/30 completed Not Available Not Available Not Available OneTouch Delica Plus Lancet 33 gauge 05/30 completed Not Available Not Available Not Available ID NOW COVID-19 Test Kit TEST DIRECTED TODAY 05/30 completed Not Available Not Available Not Available OneTouch Verio Reflect Meter 05/30 completed Not Available Not Available Not Available Vitals Date Recorded Body height Body mass index (BMI) Body weight Body temperature Oxygen saturation Oxygen saturation in Arterial blood by Pulse oximetry Respiratory rate Heart rate Systolic blood pressure Diastolic blood pressure Provider Name and Address Organization Details Last Updated DateTime 5 160.02 cm 31.4 kg/m2 09933.2 g 97.9 [degF] 95 % 95 % 20 /min 77 /min 102 mm[Hg] 78 mm[Hg] Rachele Villarreal RN [facility] [employer] 5 12:02:26 Date Recorded Body height Body mass index (BMI) [Percentile] Per age and sex Body mass index (BMI) Body weight Body temperature Heart rate Oxygen saturation Oxygen saturation in Arterial blood by Pulse oximetry Systolic blood pressure Diastolic blood pressure Provider Name and Address Organization Details Last Updated DateTime 3 160.02 cm 82 % 25.9 kg/m2 17706.4 9 g 97.9 [degF] 78 /min 98 % 98 % 122 mm[Hg] 68 mm[Hg] Temitope Sandoval CMA [employer] 3 14:35:24 Date Recorded Body height Body mass index (BMI) [Percentile] Per age and sex Body mass index (BMI) Body weight Body temperature Oxygen saturation Oxygen saturation in Arterial blood by Pulse oximetry Heart rate Systolic blood pressure Diastolic blood pressure Provider Name and Address Organization Details Last Updated DateTime 3 160.02 cm 80 % 25.5 kg/m2 59136.3 g 97 [degF] 99 % 99 % 64 /min 114 mm[Hg] 62 mm[Hg] Temitope Sandoval CMA [employer] 3 09:33:57 Date Recorded Body mass index (BMI) Body height Oxygen saturation Oxygen saturation in Arterial blood by Pulse oximetry Heart rate Body temperature Body weight Systolic blood pressure Diastolic blood pressure Provider Name and Address Organization Details Last Updated DateTime 2 29.1 kg/m2 160.02 cm 99 % 99 % 78 /min 97.7 [degF] 11684.1 5 g 122 mm[Hg] 76 mm[Hg] Not Available [employer] 3 18:04:47 Date Recorded Body weight Body mass index (BMI) Body height Body temperature Heart rate Respiratory rate Oxygen saturation Oxygen saturation in Arterial blood by Pulse oximetry Systolic blood pressure Diastolic blood pressure Provider Name and Address Organization Details Last Updated DateTime 4 93662.8 5 g 31.4 kg/m2 160.02 cm 97.3 [degF] 82 /min 20 /min 96 % 96 % 110 mm[Hg] 74 mm[Hg] Rachele Villarreal RN [place] [facility] [place] [employer] 4 09:38:37 Social History Question Answer Notes LastModified by Organizat ion Details LastModified Time Tobacco Smoking Status Never Smoker Not Available [facility] 09/02/2022 18:04:22 Do You Have An Advance Directive? No Information n ot available 09/12/2024 What Is Your Level Of Caffeine Consumption? None [id number] Information not available 09/02/2022 How Much Tobacco Do You Chew? None [id number] Information not available 09/02/2022 In The 14 Days Before Symptom Onset, Have You Had Close Contact With A Laboratory-confirm ed COVID-19 While That Case Was Ill? No Information n ot available 05/30/2024 In The 14 Days Before Symptom Onset, Have You Had Close Contact With A Person Who Is Under Investigation For COVID-19 While That Person Was Ill? No Information not available 05/30/2024 What Type Of Diet Are You Following? REGULAR [id number] Information not available 09/02/2022 Which Illicit Or Recreational Drugs Have You Used? No [id number] Information not available 09/02/2022 Have There Been Any Changes To Your Family Or Social Situation? No [email or web address] Information no t available 11/03/2022 Are There Any Guns Present In Your Home? No [id number] Information not available 09/02/2022 Do You Use Insect Repellent Routinely? No Information not available 05/30/2024 Where Do You Live? Apartment Inform ation not available 05/30/2024 Do You Have A Medical Power Of Patent Prosecution Attorney? No Information not available 09/12/2024 How Many Children Do You Have? 1 Information not available 05/30/2024 Do You Have Any Pets? No [email or web address] Information not available 11/03/2022 What Is Your Relationship Status? Single Information not available 05/30/2024 Do You Use Your Seat Belt Or Car Seat Routinely? Yes Information not available 05/30/2024 Do You Have Smoke And Carbon Monoxide Detectors In Your Home? Yes [email or web address] Information not available 11/03/2022 Are You Passively Exposed To Smoke? No [email or web address] Information no t available 11/03/2022 Are There Any Smokers In Your House? No Information not available 11/03/2022 How Much Tobacco Do You Smoke? No [id number] Information not available 09/02/2022 Do You Participate In Social Media? Yes Information not available 05/30/2024 Do You Use Sunscreen Routinely? No Information not available 05/30/2024 Have You Recently Traveled Abroad? No Information not available 05/30/2024 Sex: Unknown Functional Status Question Answer Note LastModified by Organizat ion Details LastModified Time Do you use any illicit or recreational drugs? No Information not available 02/15/2023 Do you or have you ever used any other forms of tobacco or nicotine? No [email or web address] Information not available 11/03/2022 What is your level of alcohol consumption? None [id number] Information not available 09/02/2022 Do you or have you ever used smokeless tobacco? Never used smokeless tobacco [id number] Information not available 09/02/2022 Are you currently employed? 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 Never used electronic cigarettes [id number] Information not available 09/02/2022 What is your exercise level? None [id number] Information not available 09/02/2022 Mental Status Question Answer Note LastModified by Organization D etails LastModified Time Do you feel stressed (tense, restless, nervous, or anxious, or unable to sleep at night)? [id number] Information not available 05/30/2024 Family History Nothing Reported. Medical History No medical history recorded. Gynecological History Statement/Question Response Abnormal Pap N Flow Moderate Date of LMP 05/25/2024 Dislike of Light during Menstrual Headac he N Do your menstrual headaches get severe N Duration of Flow (days) 4 Current Control Method None Age at Menarche 15 Breast Problems no How many live births 1 Frequency of Cycle (Q days) 28 Do you get headaches during your period N Menses Monthly Y Date of Last Pap Smear Discharge no Obstetrics History GPAL:G 1 P 1 0 0 1 Type Value Full Term 1 Living 1 Total 1 Immunizations Vaccine Type Date Status Note Provider Nam e and Address Organization Details Recorded Time Tdap 2 completed Not Available [facility] 09/02/2022 18:06:16 Meningococcal MCV4O 1 completed Not Available [facility] 09/02/2022 18:06:17 Influenza, split virus, quadrivalent, PF 0 completed Not Available [facility] 09/02/2022 18:06:17 Influenza, split virus, quadrivalent, preservative 9 completed Not Available [facility] 09/02/2022 18:06:17 Influenza, split virus, quadrivalent, PF 8 completed Not Available [facility] 09/02/2022 18:06:17 Influenza, split virus, quadrivalent, PF 7 completed Not Available [facility] 09/02/2022 18:06:17 meningococcal MCV4P 7 completed Not Available [facility] 09/02/2022 18:06:17 Influenza, split virus, quadrivalent, PF 1 completed Not Available [facility] 09/02/2022 18:06:17 Influenza, split virus, quadrivalent, preservative 6 completed Not Available [facility] 09/02/2022 18:06:17 Hib, unspecified formulation 4 completed BRI Suarez [address], [address], [facility] 05/30/2024 09:54:13 Hib, unspecified formulation 3 completed BRI Suarez [address], [place], [address], [facility] 05/30/2024 09:54:13 Hib, unspecified formulation 3 completed BRI Suarez [address], [place], [address], [facility] 05/30/2024 09:54:13 Hib, unspecified formulation 3 completed BRI Suarez [address], [place], [address], [facility] 05/30/2024 09:54:13 IPV 3 completed BRI Suarez [address], [place], [address], [facility] 05/30/2024 09:54:13 IPV [address] Su[address], [place], [address], [facility] 05/30/2024 09:54:13 IPV 3 completed BRI Suarez [address], [address], [place], [address], [facility] 05/30/2024 09:54:14 IPV 7 completed BRI Suarez [address], [place], [address], [facility] 05/30/2024 09:54:14 Influenza, live, trivalent, intranasal 2 completed BRI Suarez [address], [place], [address], [facility] 05/30/2024 09:54:14 Influenza, live, trivalent, intranasal 1 completed BRI Suarez [address], [place], [address], [facility] 05/30/2024 09:54:14 Influenza, live, trivalent, intranasal [address], [place], [address], [facility] Expert [facility] 05/30/2024 09:54:14 MMR [address] Su[address], [place], [address], [facility] Expert [facility] 05/30/2024 09:54:14 MMR [address] completed [address] Su[address], [place], [address], [facility] Expert [facility] 05/30/2024 09:54:14 COVID-19, mRNA, LNP-S, PF, 30 mcg/0.3 mL dose [address], [place], [address], [facility] Expert [facility] 05/30/2024 09:54:14 COVID-19, mRNA, LNP-S, PF, 30 mcg/0.3 mL dose [address], [place], [address], [facility] Expert [facility] 05/30/2024 09:54:14 pneumococcal conjugate PCV 7 [address], [place], [address], [facility] Expert [facility] 05/30/2024 09:54:14 pneumococcal conjugate PCV 7 [address], [place], [address], [facility] Expert [facility] 05/30/2024 09:54:14 pneumococcal conjugate PCV 7 [address], [place], [address], [facility] 05/30/2024 09:54:14 pneumococcal conjugate PCV 7 3 completed BRI Suarez [address], [place], [address], [facility] 05/30/2024 09:54:14 pneumococcal conjugate PCV 7 3 completed BRI Suarez [address], [place], [address], [facility] 05/30/2024 09:54:14 Tdap [address], [place], [address], [facility] 05/30/2024 09:54:14 varicella [address], [place], [address], [facility] 05/30/2024 09:54:14 varicella [address], [place], [address], [facility] [employer] [facility] Expert [facility] 05/30/2024 09:54:14 Influenza, split virus, trivalent, preservative [address], [place], [address], [facility] 05/30/2024 09:54:14 influenza, split (incl. purified surface antigen) 9 completed BRI Suarez [address], [place], [address], [facility] 05/30/2024 09:54:14 influenza, split (incl. purified surface antigen) 0 completed BRI Suarez [address], [place], [address], [facility] 05/30/2024 09:54:14 influenza, split (incl. purified surface antigen) 9 completed BRI Suarez [address], [place], [address], [facility] Expert [facility] 05/30/2024 09:54:14 HPV, quadrivalent 3 completed BRI Suarez [address], [place], [address], [facility] Expert [facility] 05/30/2024 09:54:14 Hep B, adolescent or pediatric 3 completed BRI Suarez [address], [place], [address], [facility] Expert [facility] 05/30/2024 09:54:14 Hep B, adolescent or pediatric 3 completed BRI Suarez [address], [place], [address], [facility] Expert [facility] 05/30/2024 09:54:14 Hep B, adolescent or pediatric 3 completed BRI Suarez [address], [place], [address], [facility] Expert [facility] 05/30/2024 09:54:14 Meningococcal MCV4O 2 completed RBI Suarez [address], [place], [address], [facility] Expert [facility] 05/30/2024 09:54:14 meningococcal MCV4P 5 completed BRI Suarez [address], [place], [address], [facility] Expert [facility] 05/30/2024 09:54:14 DTaP 3 completed BRI Suarez [address], [place], [address], [facility] Expert [facility] 05/30/2024 09:54:14 DTaP 3 BRI Doherty [address], [place], [address], [facility] 05/30/2024 09:54:14 DTaP 4 completed BRI Suarez [address], [place], [address], [facility] 05/30/2024 09:54:14 DTaP 3 completed BRI Suarez [address], [place], [address], [facility] 05/30/2024 09:54:14 DTaP 3 completed BRI Suarez [address], [place], [address], [facility] 05/30/2024 09:54:14 DTaP [address], [place], [address], [facility] [employer] [facility] 05/30/2024 09:54:14 meningococcal MCV4, unspecified formulation 7 BRI Doherty [address], [place], [address], [facility] 05/30/2024 09:54:14 Influenza, live, quadrivalent, intranasal 4 completed BRI Suarez [address], [place], [address], [facility] 05/30/2024 09:54:14 Influenza, live, quadrivalent, intranasal 5 BRI Doherty [address], [place], [address], [facility] 05/30/2024 09:54:14 Past Encounters Encounter ID Performer Location Encounter Start Date Encounter Closed Date Diagnosis/Indication Diagnosis SNOMED-CT Code Diagnosis ICD10 Code Diagnosis Note [id number] BRI Leonard [facility] [place] [address] [place] [address] 12/06/2020 00:00:00 12/06/2020 16:06:31 [id number] Jayda Lazo MD [facility] [place] [address] [place] [address] 04/01/2021 00:00:00 04/01/2021 17:49:41 [id number] PUMA Granger [facility] [place] [address] [place] [address] 04/21/2021 00:00:00 04/21/2021 17:24:18 [id number] PUMA Granger [facility] [place] [address] [place] [address] 05/14/2021 00:00:00 05/14/2021 15:04:53 [id number] BRI Leonard [facility] [place] [address] [place] [address] 12/05/2021 00:00:00 12/05/2021 16:45:28 [id number] BRI Leonard [facility] [place] [address] [place] [address] 12/09/2021 00:00:00 12/09/2021 15:03:21 [id number] PUMA Granger [facility] [place] [address] [place] [address] 12/26/2021 00:00:00 12/26/2021 16:18:58 [id number] PUMA Granger [facility] [place] [address] [place] [address] 03/03/2022 00:00:00 03/03/2022 16:30:14 [id number] PUMA Granger [facility] [place] [address] [place] [address] 11/03/2022 14:29:48 11/03/2022 14:54:32 Nausea, vomiting and diarrhea [id number] R11.2 Symptoms present x 4 weeks now. Accompanie d by ERICK pain. Diarrhea daily. Will have cluster vomiting and then a few days without vomiting. Denies any blood in stool. No fevers.CT abdomen unremarkab le.Will continue zofran, omeprazole and send in new script for dicyclomin e. She also states she was supposed to have abx from ER. Will send in new script. She has f/u scheduled with GI tomorrow, so advised she can also wait to start until she sees them in case they want to do any stool studies. Allergy to bee venom [id number] Z91.030 [id number] BRI Leonard [facility] [address] [place] [address] 02/15/2023 09:30:03 02/15/2023 11:13:59 Pain of left knee joint [id number] 66960 M25.562 Be safe with medicines. Read and follow all instructio ns on the label.Take pain meds as prescribed . Ok to continue otc pain relievers per package instructio ns.Rest and protect the knee(s). Take a break from any activity that may cause pain.Put ice or a cold pack on knee(s) for 10 to 20 minutes at a time. Put a thin cloth between the ice and skin.Prop up a sore knee on a pillow when icing, or anytime sitting/ly ing down. Try to keep it above the level of the heart to help reduce swelling.I f knee is not swollen, you can put moist heat, a heating pad, or a warm cloth/Clifton mmend an elastic bandage, sleeve, or other type of support for knee, wear it as directed.F briana instructio ns about weight bearing. Ok to slowly increase your activity/e xercise as tolerated. Reach and stay at a healthy weight. Extra weight can strain the joints, especially the knees and hips, and make the pain worse. Right flank pain [id number] R10.9 New problemUTI vs muscle strainUrin e dip + trace ketones, likely secondary to dehydratio n. Pt advised to increase water intake and stop drinking Gatorade on a regular basis.Urin e sent for UA reflex cx to r/o infection. Daily good back mechanics reviewed with patient, good posture, avoid prolonged sitting or standing, stretches given and reviewed with patient. Heat 10-15 minutes 3 times daily as needed for pain or spasms. Go to ED for neurologic symptoms or incontinen ce. [id number] Charles Nolan MD [address] [address] 05/30/2024 09:07:55 05/30/2024 10:00:49 Anxiety [id number] F41.9 Allergy to bee venom 424 [id number] Z91.964 [id number] Charles Nolan MD [address] [address] 09/12/2024 11:41:26 09/12/2024 12:43:42 Hypoglycemia [id number] E16.2 Advised to keep sugary snacks/dri nks nearby.Adv ised to monitor blood glucose if light-head edness or dizziness occursAdvi sed to return in 3 months to recheck blood glucose levels Health Concerns Section Related Observation LastModified by Organization Detai ls LastModified Time None Recorded Concern Status LastModified by Organization Details LastModified Time None Recorded Advance Directives Directive N: Payers Insurance Date Sequence Insurance Name Policy Number Policy Caldera Covered Member ID Caldera Member ID Guarantor Name 07/04/2024 2 [place] [employer] Summer [employer] on [id number] summer07/14/2024 1 [facility] ON OR AFTER 01/02/21 (MEDICAID REPLACEMENT - HMO) summeron [id number] summer12/10/[address] [facility] [id number] summer [id number] summer Notes Date Note Type Note Provider Name and Address Organization Details Recorded Time 11/03/2022 text/html Pt. states on 10/03/22 she started getting N/V/D. Symptoms did not get better so she went to ER 10/19/22 and told she just had gastroenteritis (CT was unremarkable). She then went to ER again 10/27/22 and they discharged her with zofran and advised she follow-up with GI. She is still having diarrhea daily, states it is watery. She cluster vomits (will be like multiple times in a row and then she will be okay for a couple of days). She is still currently taking omeprazole and zofran as needed. PUMA Granger [address], [place], [address], [employer] 11/03/2022 17:14:45 02/15/2023 text/html 1. Pt in office for problem visit with c/o pain/swelling of left knee for the past few weeks. States she fell and slid while chasing her daughter. Reports her left knee cap shifted to the left and she has been dealing with the discomfort since then. Pt states that she is getting shooting pain down the leg despite taking ibuprofen.2. Pt c/o having right flank pain for awhile as well. Concerned she might have a kidney infection. States she drinks about 3-4 bottles of water per day and a lot of Gatorade. Pt denies any burning with urination, blood in urine, or increased frequency. BRI Leonard [address], [place], [address], [employer] 02/15/2023 20:33:11 05/30/2024 text/html Neisha Marcum is a 23 year old female patient here today to establish care. She previously saw Dr. Lazo She has concerns today with anxiety. States she has increased life stressors, racing head, cannot sleep at night. In the past has taken buproprion, buspirone, lexapro, hydroxyzine, lorazepam, paroxetine. BRI Suarez [address], [place], [address], [employer] 05/30/2024 09:59:48 09/12/2024 text/html Neisha Marcum is a 24 year old female patient here today for blood sugar concerns States she was feeling fatigued yesterday and began to monitor her blood sugars, states when she checked first was 54, shot up to 168 after meal. Concerns of increased urinationStates she was told she was prediabetic in the past Vika Huerta, [employer] [address] [facility], [facility] [address], [place], [address], [facility] [employer] [facility] 09/12/2024 12:22:44 OBGyn Episode No OBEpisode recorded.
--- OUTSIDE RECORDS SUMMARY | 2024-12-16 19:57 | XMS_ITS | CONTINUITY OF CARE DOCUMENT ---
Author Name ismael guevara Address Unknown Organization [facility] Office Address [address] [place] [address] Phone [phone] Care Team Providers Care Diesel Engine Pipe Fitter Name Role Phone Alex Van MD Unavailable [phone] SARAH GOMEZ PA-C Unavailable SARAH GOMEZ PA-C Unavailable [phone] INSURANCE PROVIDERS Payer name Policy type / Coverage type [facility] [employer] [place] MEDICAID (2) Medicaid [id number]
--- OUTSIDE RECORDS SUMMARY | 2024-12-16 19:57 | XMS_ITS | Clinical Summary ---
Author Organization [facility] Address [address] [place] [address] Care Team Providers Care Blast Furnace Supervisor Name Role Phone Naveen Wei ASSISTANT COUNTY ATTORNEY-PROFESSIONAL NURSING TUTOR Primary Care Provider Naveen Wei ASSISTANT COUNTY ATTORNEY-PROFESSIONAL NURSING TUTOR Unavailable [phone] Source Comments [facility],non-owned Affiliates and Associated Physician Practices is amultiple site organization consisting of ambulatory clinics and hospital sitesin [place], [place], [place] and [place]. This disclosure is being madepursuant to the Care Everywhere program and may not contain all information available regarding this patient. Last updated 18.[facility] Allergies Active Allergy Reactions Criticality Noted Date Comments Banana Headache 08/24/2024 Bee Venom Anaphylaxis High 02/04/2024 Cat Hair Extract Unknown 08/24/2024 Chocolate Headache High 02/09/2014 bananas Medications * Be aware that medications may not be up to date on this document. Alwaysverify current medications with the patient. busPIRone (Buspar) 10 MG tablet Take 1 (one) tablet by mouth 3 times daily as needed Active EPINEPHrine (Epipen) 0.3 MG/0.3ML auto-injector pen Inject 0.3 mL into muscle once as needed Active escitalopram (Lexapro) 20 MG tablet Take 1 (one) tablet by mouth as needed Active sertraline (Zoloft) 50 MG tablet Take 1 (one) tablet by mouth at bedtime 07/21/2024 Active fluticasone propionate (Flonase) 50 MCG/ACT nasal spray [place] 2 (two) sprays into each nostril once daily as needed Active Active Problems Problem Noted Date Diagnosed Date Pain in throat 02/04/2024 Allergic rhinitis 09/03/2020 Overview (02/04/2024): Last Assessment & Plan: Nasal saline spray (Simply saline, [place] Remedies, [place], [place]) 2 second sprays or 2 squeezes into each nostril while looking down over the sink, do not need to sniff in. Followed by Flonase 2 sprays into each nostril while looking down over the sink, do not sniff in or blow nose after use for at least 30 minutes daily, for at least one month Consider Septoplasty and inferior turbinate reduction after baby is born Acute midline thoracic back pain 07/18/2018 Spinal asymmetry (< 10 degrees) 07/18/2018 Nevus 02/09/2014 Overview (02/09/2014): first noted at age 4; no worrisome features; no melanoma risk factors Immunizations Immunization Administration Dates Next Due INFLUENZA VACCINE, TRIV. (AF LURIA, FLUZONE TRIVALENT; 6MO+) (IIV3) 04/17/2013 DTaP VACCINE IM (6wk-6yrs) 03/10/2007,,03/01/2003,12/28,2002,2002 FLU VACCINE QUAD IIV4 SPLIT 0.25 ML IM 9,04/15/2016 HEP B VACCINE, PED/ADOL 05/03/2003,2002, HIB VACCINE 08/21/2003, 3,2002,10/20 Human Papilloma Virus Dora valent Vaccine 08/29/2012 INFLUENZA VACCINE, QUADR. (A FLURIA, FLUZONE QUADRIVALENT; 6MO+) (IIV4) 06/14/2010,06/26/2009,04/10/2009 INFLUENZA VACCINE, QUADR. (F LUZONE; FLULAVAL; FLUARIX; AFLURIA QUADRIVALENT; 6MO+), 0.5 ML (IIV4) 04/01/2021,04/24/2020,04/12/2018,04/27 NAJMA VACCINE QUAD LAIV4 PF NASAL 05/25/2015,2013 MENINGOCOCCAL ACWY (MCV4P) VAC IM 02/16/2017,09/2014 MENINGOCOCCAL ACWY MENVEO 04/01/2021,08/24/2011 MMR 03/10/2007,08/21/2003 PNEUMOCOCCAL PCV7 CONJ, PEDS 08/26/2005, 08/21/2003,05/03/2003,03/01,2002 POLIO IPV 03/10/2007, 4,2002,10/20 TDAP (7yrs+) 12/05/2021,01/27/2014 VARICELLA 01/27/2014,11/19/2003 Family History Medical History Relation Name Comments Birthmarks Brother Acne Mother Birthmarks Mother Relation Name Status Comments Brother Mother Social History Tobacco Use Types Packs/Day Years Used Date Smoking Tobacco: Never Passive Smoke Exposure: Yes Smokeless Tobacco: Never Tobacco Cessation:Counseling Given: Not Answered Alcohol Use Standard Drinks/Week Comments Not Currently 0 (1 standard drink = 0.6 oz pur e alcohol) Comments No Sex and Gender Information Value Date Recorded Sex Assigned at Not on file Legal Sex Female 10:34 AM CDT Gender Identity Not on file Sexual Orientation Not on file Last Filed Vital Signs Vital Sign Reading Time Taken Comments Blood Pressure 116/81 08/24/2024 1:51 PM CUSTOMER SUPPORT ASSISTANT Pulse 80 08/24/2024 1:51 PM CUSTOMER SUPPORT ASSISTANT Temperature 36.3 C (97.3 F) 02/17/2024 11:02 AM CDT Respiratory Rate 15 02/17/2024 2:28 PM CDT Oxygen Saturation 96% 02/17/2024 2:28 PM CDT Inhaled Oxygen Concentration - - Weight 80.3 kg (177 lb) 08/24/2024 1:51 PM CUSTOMER SUPPORT ASSISTANT Height 160 cm (5' 3) 08/24/2024 1:51 PM CUSTOMER SUPPORT ASSISTANT Body Mass Index 31.35 08/24/2024 1:51 PM CUSTOMER SUPPORT ASSISTANT Plan of Treatment Health Maintenance Due Date Last Done Comments HPV VACCINE (2 - 2-dose series) 02/26/2013 3 HIV SCREENING 2017 CHLAMYDIA/GONORRHEA SCREENING 2018 MENINGOCOCCAL (Group B) VACC INE SHARED DECISION-MAKING (1 of 2 - Standard) 2018 HEPATITIS C SCREENING 08/12/2020 PAP SMEAR 2023 COVID-19 VACCINE (3 - 2023-2 5 season) 2024 12/12/2020, 11/21/2020 DEPRESSION SCREENING 07/05/2024 INFLUENZA VACCINE (Season Ended) 2025 04/01/2021, 04/24/2020, 05/02/2019, Additional history exists DTAP/TDAP/TD VACCINES (8 - T d or Tdap) 12/06/2031 12/05/2021, 01/27/2014, 03/10/2007, Additional history exists ZOSTER VACCINE (1 of 2) 2052 HEPATITIS B VACCINE Completed 05/03/2003, 2002, 2002 HIB VACCINE Completed 08/21/2003, 02/03, 2002, Additional history exists PNEUMOCOCCAL VACCINE Completed 08/26/2005, 08/21/2003, 05/03/2003, Additional history exists MENINGOCOCCAL GROUPS A/C/Y/W VACCINE Completed 04/01/2021, 02/16/2017, 02/04/2015, Additional history exists Insurance ANTH Care Teams Blast Furnace Supervisor Relationship Specialty Start Date End Date Naveen Wei APRN-RADHA [address] [place] [id number] PCP - General 07/19/18 Naveen Wei APRN-PROFESSIONAL NURSING TUTOR [address] [place] [phone] Nurse Practitioner Family 07/19/18
--- NOTE | 2024-12-16 19:59 | ED_ITS ---
HPI - Extremity Injury (Lower) General Chief Complaint: Extremity Injury, Lower Stated Complaint: L ankle injury Time Seen by Provider: 12/16/24 19:59 Source: patient and family Mode of arrival: ambulatory History of Present Illness HPI Narrative: bed board glanced across lateral side of left ankle prior to arrival. No other injuries. Related Data Home Medications ?Medication ?Instructions ?Recorded ?Confirmed ?Last Taken ?Type epinephrine 0.3 mg/0.3 mL subcut 10/25/24 10/25/24 Unknown History injection, auto-injector Allergies Allergy/AdvReac Type Severity Reaction Status Date / Time cat dander Allergy Intermediate SNEEZE, Verified 10/25/24 09:22 ITCH, RASHES, EYES WATER, THROAT HURTS bee venom protein (honey bee) Allergy Anaphylactic Verified 10/25/24 09:22 Shock chocolate flavor AdvReac Migraine Verified 10/25/24 09:22 Review of Systems Review of Systems: All systems reviewed & are unremarkable except as noted in HPI and below PMFSH Past Medical History Medical History RUQ pain Diarrhea Contusion of right hand Tonsil pain Anxiety Nausea and vomiting Abnormal CT scan Other sprain of left foot, initial encounter Headache Head injury (normal spontaneous vaginal delivery) Toe fracture, right Scoliosis Wrist fracture, left (06/13/19) Anxiety Left wrist sprain Surgical History Surgical History History of removal of skin mole lt June 2015 Family History Family History Other Diabetes mellitus No pertinent family history Social History Social History Social History: Caffeine-daily Smoking status: Never smoker Tobacco type: e-cigarettes/vaping Second hand tobacco smoke exposure: No Additional smoking assessment comments: Pt and significant other vaped. Significant other also stopped vaping 2-3 Alcohol intake: never Substance use: current Substance use type: marijuana Last use: 12/13/2022 Do You Feel Safe in your Home?: Yes Lack of Transportation: No Lack of Food: Never True Current Housing: I Have Housing Concerned About Future Housing: No Difficulty Paying Gas/Electric Bills: No Difficulty Paying for Meds: No Currently Unemployed: No Education: High School Diploma/GED Difficulty w/ Childcare or Family Care: No Living arrangements: with family Gender identity (if verbalized by the patient): Female Sexual Orientation (if Verbalized by the Patient): Straight or Heterosexual Spiritual care concerns: No Exam Narrative: General appearance: Well-developed, well-nourished Skin: Normal color Vascular: Normal peripheral pulses, normal capillary refill. Musculoskeletal: Left ankle exam showed diffuse tenderness lateral malleolus, slightly bruises, slight limited range of motion, no deformity, no wounds Neurologic: Alert and oriented ?3, DIGITAL COMPOSER is normal as tested, no gross motor deficit Course Vital Signs Vital signs: Vital Signs Temperature 36.9 C 12/16/24 19:57 Pulse Rate 113 H 12/16/24 19:57 Respiratory Rate 14 12/16/24 19:57 Blood Pressure 109/83 12/16/24 19:57 Pulse Oximetry 97 12/16/24 19:57 Oxygen Delivery Room Air 12/16/24 19:57 Temperature 36.9 C 12/16/24 19:57 Pulse Rate 113 H 12/16/24 19:57 Respiratory Rate 14 12/16/24 19:57 Blood Pressure 109/83 12/16/24 19:57 Pulse Oximetry 97 12/16/24 19:57 Oxygen Delivery Room Air 12/16/24 19:57 MDM - Extremity Injury (Lower) MDM Narrative Medical decision making narrative: differential diagnosis include contusion, sprain, strain, less likely fracture X-ray of the left ankle showed no acute osseous abnormality Differential Diagnosis Differential diagnosis: Likely other ( as above) Imaging Data Radiologist's impression: Impressions Ankle X-Ray 12/16/24 20:16 IMPRESSION: No acute fracture or dislocation Critical Care Time Critical Care Time Critical Care Time: No Discharge Plan Discharge Clinical Impression: Ankle contusion Patient Disposition: Home Condition: Stable Instructions: Contusion in Adults (ED) Additional Instructions: Return if symptoms are worsening , call your family physician for appointment, take Tylenol as as needed for aches and pain, continue home medications. Keep left foot elevated Ice pack 20 minutes/hour for the next 24 hours Tylenol, ibuprofen as needed, crutches as needed Patient Language: Anguill[place] Prescriptions: No Action epinephrine 0.3 mg/0.3 mL auto-injector subcut ipratropium bromide 21 mcg (0.03 %) spray,non-aerosol 2 spray intranasal .qd-tid Qty: 30 1RF Rx Instructions: administer into each nostril. Aim back/up/out azelastine 137 mcg (0.1 %) aerosol,spray 1 - 2 spray intranasal Q12H Qty: 30 0RF Rx Instructions: administer into each nostril. Aim back/up/out ibuprofen 800 mg tablet 800 mg PO TID PRN (Reason: pain) Qty: 20 0RF doxycycline hyclate 100 mg tablet 100 mg PO BID Qty: 14 0RF fluticasone propionate 50 mcg/actuation spray,suspension 2 spray intranasal BID PRN (Reason: nasal congestion) Qty: 16 0RF Rx Instructions: administer into each nostril Follow-up/Referrals: Violet,Jayda Wasserman MD [Primary Care Provider] -
--- NOTE | 2024-12-16 20:00 | PC.NURSE ---
ICE PACK TO LEFT ANKLE
--- NOTE | 2024-12-16 20:02 | PC.NURSE ---
XRAY AT THE BEDSIDE
--- OUTSIDE RECORDS SUMMARY | 2024-12-16 20:05 | XMS_ITS | CONTINUITY OF CARE DOCUMENT ---
Author Name ismael guevara Address Unknown Organization [facility] Office Address [address] [place] [address] Phone [phone] Care Team Providers Care Bottom Finisher Name Role Phone Alex Van MD Unavailable [phone] SARAH GOMEZ PA-C Unavailable [phone] SARAH GOMEZ PA-C Unavailable INSURANCE PROVIDERS Payer name Policy type / Coverage type [facility] democr[employer] [place] MEDICA[place] (2) Medicaid [id number]
[2024-12-16] MEDS: ACETAMINOPHEN 325 MG TABLET 650 MG PO (20:11)
[2024-12-16] MEDS: IBUPROFEN 600 MG TABLET PO (20:12)
[2024-12-16 20:53] VITALS: BP 110/78; PULSE 84; RESP 18; O2SAT 100
== END 2024-12-16 20:53 | disposition home or self-care (01) ==
PROVIDERS: Emergency Provider Emergency Medicine; PCP Family Medicine
DX: S90.02XA Contusion of left ankle, initial encounter (principal); X58.XXXA Exposure to other specified factors, initial encounter
CPT/HCPCS: 73610; 99283; A9270

== ENCOUNTER 2024-12-18 13:00 | Emergency (ER) | payer BC, MEDICAID, SELFPAY ==
[2024-12-18 13:06] VITALS: BP 106/78; PULSE 68; RESP 16; TEMP 36.6; O2SAT 100
--- NOTE | 2024-12-18 13:11 | ED.LOWEXIN ---
HPI - Extremity Injury (Lower) General Chief Complaint: Extremity Injury, Lower Stated Complaint: INJURED L ANKLE Time Seen by Provider: 12/18/24 13:12 Source: patient, RN notes reviewed and old records reviewed Mode of arrival: ambulatory Limitations: no limitations History of Present Illness HPI Narrative: 24-year-old female presents to the [facility] with this continued pain, swelling, bruising to the lateral malleolus. States that a headboard fell hitting her in the ankle. Was seen at [facility] in emergency room 2 days ago, x-ray was done. Patient states that no additional instructions were given to her. Comes in today with continued discomfort to the ankle. Pain with walking. Related Data Home Medications ?Medication ?Instructions ?Recorded ?Confirmed ?Last Taken ?Type epinephrine 0.3 mg/0.3 mL subcut 10/25/24 10/25/24 Unknown History injection, auto-injector Allergies Allergy/AdvReac Type Severity Reaction Status Date / Time cat dander Allergy Intermediate SNEEZE, Verified 12/18/24 13:22 ITCH, RASHES, EYES WATER, THROAT HURTS bee venom protein (honey bee) Allergy Anaphylactic Verified 12/18/24 13:22 Shock chocolate flavor AdvReac Migraine Verified 12/18/24 13:22 Review of Systems Review of Systems: All systems reviewed & are unremarkable except as noted in HPI and below Constitutional: Constitutional: Reports no additional constitutional complaints ENT: Reports system reviewed and no additional complaints, except as documented Cardiovascular: Cardiovascular: Reports no additional cardiovascular complaints, Denies chest pain and Denies dyspnea Respiratory: Respiratory: Reports no additional respiratory complaints, Denies chest congestion, Denies cough and Denies dyspnea Musculoskeletal: Musculoskeletal: Reports as per HPI Integumentary/Breasts: Skin/Breast: Reports system reviewed and no additional complaints, except as docu PMFSH Past Medical History Medical History RUQ pain Diarrhea Contusion of right hand Tonsil pain Anxiety Nausea and vomiting Abnormal CT scan Other sprain of left foot, initial encounter Headache Head injury (normal spontaneous vaginal delivery) Toe fracture, right Scoliosis Wrist fracture, left (06/13/19) Anxiety Left wrist sprain Surgical History Surgical History History of removal of skin mole lt temporal, June 2015 Family History Family History Other Diabetes mellitus No pertinent family history Social History Social History Social History: Caffeine-daily Smoking status: Never smoker Tobacco type: e-cigarettes/vaping Second hand tobacco smoke exposure: No Additional smoking assessment comments: Pt and significant other vaped. Significant other also stopped vaping 2-3 Alcohol intake: never Substance use: current Substance use type: marijuana Last use: 12/13/2022 Do You Feel Safe in your Home?: Yes Lack of Transportation: No Lack of Food: Never True Current Housing: I Have Housing Concerned About Future Housing: No Difficulty Paying Gas/Electric Bills: No Difficulty Paying for Meds: No Currently Unemployed: No Education: High School Diploma/GED Difficulty w/ Childcare or Family Care: No Living arrangements: with family Gender identity (if verbalized by the patient): Female Sexual Orientation (if Verbalized by the Patient): Straight or Heterosexual Spiritual care concerns: No Comments At the time of my signature, I reviewed and agree with the nursing past medical, surgical, social, and family history. There is no relevant family history pertinent to the patient complaint. Exam Const: General: cooperative, healthy appearing, comfortable, no acute distress, well developed, alert and well nourished Nutritional Appearance: well nourished Orientation/consciousness: patient oriented x3 Limitations: no limitations HENMT: Head: normal to inspection Eyes: General: appearance normal, both eyes and all related structures Alignment and Position: alignment normal Neck: Neck: normal visual inspection, full ROM, no lymphadenopathy and no meningeal signs Chest: Chest palpation & inspection: normal inspection of the chest Resp: Effort & Inspection: normal respiratory effort and able to speak in complete sentences Cardio: Rate: regular rate Skin: General skin exam: normal color and no rashes or lesions noted Neuro: General: patient oriented x3, gait normal, moves all extremities and no meningeal signs Cognition (Neuro): normal cognition Speech: normal speech Gait exam (Neuro): Normal gait present Extrem: General: normal to inspection, full ROM, capillary refill normal and normal gait Left lower extremity: ankle Details: tenderness Location: of the lateral malleolus, swelling Details: laterally, abnormal ROM Details: pain with active ROM and pain with passive ROM and ecchymosis (Lateral heel and lateral malleolus); no foreign bodies and no penetrating wound and foot Details: normal capillary refill, ecchymosis (Just below lateral malleolus) and vascular exam Details: dorsalis pedis pulse present and normal capillary refill; no tenderness Psych: Appearance: grossly normal and well kempt Mental Status: mental status grossly normal Speech and movement: Normal speech and movement present and Clear speech present Affect: normal affect Attitude: cooperative Course Course Level of Care: Express Care Visit Vital Signs Vital signs: Vital Signs Temperature 97.8 F 12/18/24 13:06 Pulse Rate 68 12/18/24 13:06 Respiratory Rate 16 12/18/24 13:06 Blood Pressure 106/78 12/18/24 13:06 Pulse Oximetry 100 12/18/24 13:06 Oxygen Delivery Room Air 12/18/24 13:06 Temperature 97.8 F 12/18/24 13:06 Pulse Rate 68 12/18/24 13:06 Respiratory Rate 16 12/18/24 13:06 Blood Pressure 106/78 12/18/24 13:06 Pulse Oximetry 100 12/18/24 13:06 Oxygen Delivery Room Air 12/18/24 13:06 Reviewed MDM - Extremity Injury (Lower) MDM Narrative Medical decision making narrative: Patient sitting in exam room. Patient is nontoxic, vitals are stable. Patient presents with continued discomfort for 2 days. Was seen at [place] [facility], x-ray was negative. Back shins just tender at the lateral malleolus. Negative tenderness to the Achilles, calcaneus, lateral foot. Patient appropriate for outpatient treatment with close follow-up, gave crutches. Patient had Jose Eduardo wrap. Discussed [id number] treatments. Patient took crutches, did not use them but carried them. Walked out of clinic. Discharge instructions reviewed with patient, as well as provided in writing per nursing staff. The instructions also include specific and strict return/GO TO THE ER as well as f/u information. All questions have been answered, and the patient deny any further questions with discharge and discharge plan. Some parts of this dictation were generated by voice recognition software and may contain typographical and/or grammatical inaccuracies. Critical Care Time Critical Care Time Critical Care Time: No Discharge Plan Discharge Clinical Impression: Contusion of ankle or foot, left Patient Disposition: Home Condition: Stable Instructions: Antibiotic Form, Knee Sprain (ED), Crutch Instructions (ED), Contusion in Adults (ED) Additional Instructions: Your Xray did not show a fracture. Wear good supportive shoes at all times. Ice should be applied to help reduce swelling. It can be used for 20 to 30 minutes, every 2-3 hours while awake. Do not apply ice directly to your skin. ankle braces or jose eduardo-wraps will help support your injured ankle. You can alternate ibuprofen 600mg and Tylenol 650mg every 4 hours as needed for pain Please schedule a follow-up visit with your personal physician for further evaluation and treatment within 2 weeks especially if symptoms persist. For new or worsening symptoms go directly to the emergency room Patient Language: Grenadian Prescriptions: No Action epinephrine 0.3 mg/0.3 mL auto-injector subcut ipratropium bromide 21 mcg (0.03 %) spray,non-aerosol 2 spray intranasal .qd-tid Qty: 30 1RF Rx Instructions: administer into each nostril. Aim back/up/out azelastine 137 mcg (0.1 %) aerosol,spray 1 - 2 spray intranasal Q12H Qty: 30 0RF Rx Instructions: administer into each nostril. Aim back/up/out ibuprofen 800 mg tablet 800 mg PO TID PRN (Reason: pain) Qty: 20 0RF doxycycline hyclate 100 mg tablet 100 mg PO BID Qty: 14 0RF fluticasone propionate 50 mcg/actuation spray,suspension 2 spray intranasal BID PRN (Reason: nasal congestion) Qty: 16 0RF Rx Instructions: administer into each nostril Follow-up/Referrals: Violet,Jayda Wasserman MD [Primary Care Provider] - Stand Alone Forms: Work/School Release IP Time of Disposition: 13:29
== END 2024-12-18 13:50 | disposition home or self-care (01) ==
PROVIDERS: Emergency Provider Nurse Practitioner; PCP Family Medicine
DX: S90.02XD Contusion of left ankle, subsequent encounter (principal); S90.32XD Contusion of left foot, subsequent encounter; W20.8XXD Other cause of strike by thrown, projected or falling object, subsequent encounter; M41.9 Scoliosis, unspecified
CPT/HCPCS: 99212; G0463

== ENCOUNTER 2025-02-04 13:22 | Emergency (ER) | payer SELFPAY ==
[2025-02-04 13:31] VITALS: BP 103/67; PULSE 79; RESP 16; TEMP 36.9; O2SAT 99
[2025-02-04 13:48] LABS: EDCOVIDSCREEN Negative (Negative); EDINFLUASCREEN Negative (Negative); EDINFLUBSCREEN Negative (Negative)
--- NOTE | 2025-02-04 13:49 | ED.NAVMDI ---
HPI - Nausea/Vomiting/Diarrhea General Chief complaint: Nausea/Vomiting/Diarrhea Stated complaint: Headache/Body aches/Nausea Time Seen by Provider: 02/04/25 13:31 Source: patient and RN notes reviewed Mode of arrival: ambulatory Limitations: no limitations History of Present Illness HPI Narrative: Patient presents today complaining of nausea, vomiting, body aches, chills, fever that started 4 days ago and lasted for almost 3 days. Two days ago she started with diarrhea that she reports happens multiple times per day and includes abdominal cramping and a posterior headache. Denies blood or mucus in the stool. Denies any persistent nausea. She has been able to take in fluids and some soup and keep it down successfully. States she had also been taking some Pepto-Bismol, Tylenol, and ibuprofen with some improvement. Prior to onset of her symptoms, her parents had similar symptoms. Related Data Home Medications ?Medication ?Instructions ?Recorded ?Confirmed ?Last Taken ?Type epinephrine 0.3 mg/0.3 mL subcut 10/25/24 10/25/24 Unknown History injection, auto-injector Allergies Allergy/AdvReac Type Severity Reaction Status Date / Time cat dander Allergy Intermediate SNEEZE, Verified 02/04/25 13:39 ITCH, RASHES, EYES WATER, THROAT HURTS bee venom protein (honey bee) Allergy Anaphylactic Verified 02/04/25 13:39 Shock chocolate flavor AdvReac Migraine Verified 02/04/25 13:39 PMFSH Past Medical History Medical History RUQ pain Diarrhea Contusion of right hand Tonsil pain Anxiety Nausea and vomiting Abnormal CT scan Other sprain of left foot, initial encounter Headache Head injury (normal spontaneous vaginal delivery) Toe fracture, right Scoliosis Wrist fracture, left (06/13/19) Anxiety Left wrist sprain Surgical History Surgical History History of removal of skin mole lt temporal, June 2015 Family History Family History Other Diabetes mellitus No pertinent family history Social History Social History Social History: Caffeine-daily Smoking status: Never smoker Tobacco type: e-cigarettes/vaping Second hand tobacco smoke exposure: No Additional smoking assessment comments: Pt and significant other vaped. Significant other also stopped vaping 2-3 Alcohol intake: never Substance use: current Substance use type: marijuana Last use: 12/13/2022 Do You Feel Safe in your Home?: Yes Lack of Transportation: No Lack of Food: Never True Current Housing: I Have Housing Concerned About Future Housing: No Difficulty Paying Gas/Electric Bills: No Difficulty Paying for Meds: No Currently Unemployed: No Education: High School Diploma/GED Difficulty w/ Childcare or Family Care: No Living arrangements: with family Gender identity (if verbalized by the patient): Female Sexual Orientation (if Verbalized by the Patient): Straight or Heterosexual Spiritual care concerns: No Comments At time of signature, I have reviewed and agree with nursing past medical, surgical, social and family history unless otherwise noted. Please see nursing chart for further information. There is no relevant family history pertinent to the presenting complaint Exam Narrative: GENERAL: Well-appearing, well-nourished, and in no acute distress. HEAD: Normocephalic, atraumatic. EYES: EOMI. No redness or drainage. Conjunctivae normal. ENT: Mucous membranes pink and moist. Nares clear. No rhinorrhea. Throat normal. Uvula midline. NECK: Normal AROM. CHEST: No respiratory distress. Clear to auscultation. HEART: Regular rate and rhythm. No murmur appreciated. ABDOMEN: Soft, nontender, nondistended, hyperactive bowel sounds. EXTREMITIES: Normal range of motion. No edema. SKIN: Warm, dry, no rash. Capillary refill normal. Normal skin turgor. NEURO: No focal deficits. Alert and oriented x3. Gait steady. PSYCH: Normal affect. No signs of depression or anxiety. Course Course Level of Care: Express Care Visit Vital Signs Vital signs: Vital Signs Temperature 98.5 F 02/04/25 13:31 Pulse Rate 79 02/04/25 13:31 Respiratory Rate 16 02/04/25 13:31 Blood Pressure 103/67 02/04/25 13:31 Pulse Oximetry 99 02/04/25 13:31 Temperature 98.5 F 02/04/25 13:31 Pulse Rate 79 02/04/25 13:31 Respiratory Rate 16 02/04/25 13:31 Blood Pressure 103/67 02/04/25 13:31 Pulse Oximetry 99 02/04/25 13:31 Reviewed MDM - Nausea/Vomiting/Diarrhea MDM Narrative Medical decision making narrative: 24-year-old female patient presents today complaining of diarrhea, headache, and abdominal cramping. Prior to onset of these symptoms she had a 2-3 day history of nausea, vomiting, body aches, chills, fever. Those symptoms have since resolved. She has been able to keep down fluids since that time. No blood or mucus in the stool. COVID and influenza test negative. Parents with similar symptoms prior to onset. Vital signs stable. Symptoms likely viral. Discussed not taking any antidiarrheal medication unless necessary due to possibility of toxic megacolon. Discussed that most diarrhea is self-limiting. Stressed staying hydrated orally. ED precautions given. No prescription medications indicated at this time. Patient does not appear to hydrated. No symptoms indicate need for ED transfer at this time. Differential Diagnosis Differential diagnosis: Likely food poisoning, gastroenteritis and dehydration Lab Data Attestation: I reviewed the patient's lab results. Labs: Lab Results 02/04/25 Range/Units 13:43 POC Influenza A Ag Negative (Negative) POC Influenza B Ag Negative (Negative) POC SARS CoV-2 Ag Negative (Negative) Critical Care Time Critical Care Time Critical Care Time: No Discharge Plan Discharge Clinical Impression: Diarrhea Qualifiers: Diarrhea type: unspecified type Qualified Code(s): R19.7 - Diarrhea, unspecified Patient Disposition: Home Condition: Stable Instructions: Dehydration (ED), Acute Diarrhea (ED) Additional Instructions: Continue to stay hydrated with water and electrolyte containing fluids to replace fluids lost in your diarrhea. If you feel that your losing too many fluids and are unable to orally hydrate enough, please go to the ER immediately for further evaluation and treatment. Patient Language: Czech Prescriptions: No Action epinephrine 0.3 mg/0.3 mL auto-injector subcut azelastine 137 mcg (0.1 %) aerosol,spray 1 - 2 spray intranasal Q12H Qty: 30 0RF Rx Instructions: administer into each nostril. Aim back/up/out fluticasone propionate 50 mcg/actuation spray,suspension 2 spray intranasal BID PRN (Reason: nasal congestion) Qty: 16 0RF Rx Instructions: administer into each nostril Follow-up/Referrals: Deanna,Vika Delarosa, PRACTICAL NURSING INSTRUCTOR [Primary Care Provider] - Stand Alone Forms: Work/School Release IP Time of Disposition: 13:55
== END 2025-02-04 13:57 | disposition home or self-care (01) ==
PROVIDERS: Emergency Provider Nurse Practitioner
DX: R19.7 Diarrhea, unspecified (principal); Z20.822 Contact with and (suspected) exposure to COVID-19; F17.290 Nicotine dependence, other tobacco product, uncomplicated; M41.9 Scoliosis, unspecified
CPT/HCPCS: 87426; 87804; 99212; G0463

== ENCOUNTER 2025-03-24 09:28 | Emergency (ER) | payer BC, MEDICAID, SELFPAY ==
--- NOTE | 2025-03-24 09:34 | ED.URI ---
HPI - URI/Sore Throat General Chief Complaint: Upper Respiratory Infection Stated Complaint: clogged throat, hot and cold, tired Time Seen by Provider: 03/24/25 09:46 Source: patient and RN notes reviewed Mode of arrival: ambulatory Limitations: no limitations History of Present Illness HPI Narrative: 24-year-old female presents with concern for sore throat, feeling hot cold, feeling tired, headache. She reports symptoms started yesterday. She works in a intermediate. She took ibuprofen MD elicited complaint: sore throat Related Data Home Medications ?Medication ?Instructions ?Recorded ?Confirmed ?Last Taken ?Type epinephrine 0.3 mg/0.3 mL 0.3 mg subcut 10/25/24 10/25/24 Unknown History injection, auto-injector Allergies Allergy/AdvReac Type Severity Reaction Status Date / Time cat dander Allergy Intermediate SNEEZE, Verified 03/24/25 09:41 ITCH, RASHES, EYES WATER, THROAT HURTS bee venom protein (honey bee) Allergy Anaphylactic Verified 03/24/25 09:41 Shock chocolate flavor AdvReac Migraine Verified 03/24/25 09:41 Review of Systems Review of Systems: CONSTITUTIONAL: Reports malaise, chills, sweats EYES: Denies visual changes, redness, or discharge. ENT: Denies rhinorrhea, congestion, sinus pain, otalgia. Reports sore throat. CARDIOVASCULAR: Denies chest pain, palpitations, or edema. RESPIRATORY: Reports cough. Denies dyspnea. GASTROINTESTINAL: Denies abdominal pain, nausea, vomiting, diarrhea SKIN: Denies rash or itching. MUSCULOSKELETAL: Denies myalgia. NEUROLOGIC: Reports headache. All systems reviewed & are unremarkable except as noted in HPI and below PMFSH Past Medical History Medical History RUQ pain Diarrhea Contusion of right hand Tonsil pain Anxiety Nausea and vomiting Abnormal CT scan Other sprain of left foot, initial encounter Headache Head injury (normal spontaneous vaginal delivery) Toe fracture, right Scoliosis Wrist fracture, left (06/13/19) Anxiety Left wrist sprain Surgical History Surgical History History of removal of skin mole lt temporal, June 2015 Family History Family History Other Diabetes mellitus No pertinent family history Social History Social History Social History: Caffeine-daily Smoking status: Never smoker Tobacco type: e-cigarettes/vaping Second hand tobacco smoke exposure: No Additional smoking assessment comments: Pt and significant other vaped. Significant other also stopped vaping 2-3 Alcohol intake: never Substance use: current Substance use type: marijuana Last use: 12/13/2022 Do You Feel Safe in your Home?: Yes Lack of Transportation: No Lack of Food: Never True Current Housing: I Have Housing Concerned About Future Housing: No Difficulty Paying Gas/Electric Bills: No Difficulty Paying for Meds: No Currently Unemployed: No Education: High School Diploma/GED Difficulty w/ Childcare or Family Care: No Living arrangements: with family Gender identity (if verbalized by the patient): Female Sexual Orientation (if Verbalized by the Patient): Straight or Heterosexual Spiritual care concerns: No Comments At time of signature, agree with nursing past medical, surgical, social and family history. There is no relevant family history pertinent to the presenting complaint Exam Narrative: GENERAL: Well-appearing, well-nourished, and in no acute distress. HEAD: Normocephalic EYES: PERRLA, conjunctivae clear ENT: Nares clear. Mucous membranes moist. TM pearly pérez with sharp light reflex bilaterally; no tragal tenderness. Oropharynx not erythematous without lesions. Tonsils not enlarged and without exudate, no drooling, no hoarseness, no trismus, uvula midline. NECK: Supple. No lymphadenopathy CHEST: Clear to auscultation, breath sounds equal. No wheezing, rhonchi, rales, or stridor. No respiratory distress, speaks in full sentences. HEART: Regular rate and rhythm. No murmur heard. SKIN: Warm, dry, no rash. NEURO: Alert and oriented x3. PSYCH: Normal mood and affect Course Course Emergency Course: Patient is aware of diagnosis, understands and agrees to treatment plan. Anticipatory guidance given. Patient agrees to follow-up as directed and is aware of reasons to seek care at the emergency department. Portions of this record may have been created with voice recognition software Level of Care: Express Care Visit Vital Signs Vital signs: Vital Signs Temperature 97.9 F 03/24/25 09:44 Pulse Rate 85 03/24/25 09:44 Respiratory Rate 16 03/24/25 09:44 Blood Pressure 128/69 03/24/25 09:44 Pulse Oximetry 100 03/24/25 09:44 Temperature 97.9 F 03/24/25 09:44 Pulse Rate 85 03/24/25 09:44 Respiratory Rate 16 03/24/25 09:44 Blood Pressure 128/69 03/24/25 09:44 Pulse Oximetry 100 03/24/25 09:44 Reviewed. MDM - URI/Sore Throat MDM Narrative Medical decision making narrative: Differential diagnosis considered: Her virus, strep pharyngitis, allergic rhinitis, upper respiratory tract infection, sinusitis, rhinosinusitis, nasopharyngitis. viral pharyngitis, otitis media, otitis externa, pneumonia, bronchitis, viral cough syndrome, viral syndrome, and influenza. Exam findings show no acute concerns or changes; patient is non-toxic appearing and is in no distress. Patient is appropriate for outpatient treatment and follow-up. Lab Data Attestation: I reviewed the patient's lab results. Labs: Lab Results 03/24/25 Range/Units 09:50 POC Grp A Strep Screen Negative (Negative) Critical Care Time Critical Care Time Critical Care Time: No Discharge Plan Discharge Clinical Impression: Upper respiratory infection Patient Disposition: Home Condition: Stable Instructions: Upper Respiratory Infection (ED) Additional Instructions: Your rapid strep swab was negative today at [facility]. A throat culture will be sent to the laboratory for further testing. If the test is positive, you will receive a phone call within 48 hours and an appropriate antibiotic will be initiated at that time. Your symptoms are likely due to a viral illness, which is not treated with antibiotics. Viral symptoms can be present for up to a few weeks. -Alternate Tylenol and Motrin per package directions for fever or pain. -Antihistamine medication such as Benadryl at night and Zyrtec during the day can help improve symptoms. -Eat and drink things that are easy to swallow, like tea or soup, or popsicles to suck on. -Oral rinses such as: Salt water gargles and/or may use topical anesthetic (eg. Chloraseptic spray) or lozenges to relieve dryness or throat pain). -Frequent hand washing or hand document imaging specialist is one of the best ways to prevent spread of infection. -Follow up with primary care provider in 2-3 days if condition is not improving; or seek ER visit if you have trouble breathing, cannot drink enough fluids, have muffled voice, difficulty opening your mouth, or severe swelling. Patient Language: Romansh Prescriptions: No Action epinephrine 0.3 mg/0.3 mL auto-injector 0.3 mg subcut Follow-up/Referrals: Deanna,Vika Delarosa, [employer] [Primary Care Provider, Unknown] Stand Alone Forms: Work/School Release IP Time of Disposition: 09:55
[2025-03-24 09:44] VITALS: BP 128/69; PULSE 85; RESP 16; TEMP 36.6; O2SAT 100
[2025-03-24 09:53] LABS: EDSTREPNEGPOS1 Negative (Negative)
== END 2025-03-24 10:01 | disposition home or self-care (01) ==
PROVIDERS: Emergency Provider Nurse Practitioner
DX: J06.9 Acute upper respiratory infection, unspecified (principal)
CPT/HCPCS: 87081; 87880; 99213; G0463

== ENCOUNTER 2025-05-26 21:44 | Emergency (ER) | payer BC, MEDICAID, SELFPAY ==
[2025-05-26 21:50] VITALS: BP 119/69; PULSE 73; RESP 16; TEMP 36.5; O2SAT 100
--- NOTE | 2025-05-26 22:42 | ED_ITS ---
HPI - Dental/Oral General Chief complaint: Dental/Oral Stated complaint: tooth pain Time Seen by Provider: 05/26/25 21:57 History of Present Illness HPI Narrative: 24-year-old otherwise healthy female presenting with pain in her right bottom teeth next to her wisdom teeth. She has had previous wisdom tooth surgery but her doctor and dentist told her that she has a wisdom tooth sitting on top of a nerve and needs an oral surgeon. She is trying to get this scheduled but having pain control issues in the meantime. She is on antibiotics with amoxicillin presently but only been taking ibuprofen and Tylenol without pain control. She states she has had stronger pain medicines in the past that have relieved her symptoms. No traumatic injuries. No difficulty swallowing. No fever, chills or abscess formation. Was otherwise in her normal state of health. Teeth map: 2 1. dentalgia and dental caries. Related Data Home Medications ?Medication ?Instructions ?Recorded ?Confirmed ?Last Taken ?Type epinephrine 0.3 mg/0.3 mL 0.3 mg subcut 10/25/2410/25 Unknown History injection, auto-injector Allergies Allergy/AdvReac Type Severity Reaction Status Date / Time cat dander Allergy Intermediate SNEEZE, Verified 05/26/25 21:44 ITCH, RASHES, EYES WATER, THROAT HURTS bee venom protein (honey bee) Allergy Anaphylactic Verified 05/26/25 21:44 Shock chocolate flavor AdvReac Migraine Verified 05/26/25 21:44 Review of Systems 2 Review of Systems: [facility] Past Medical History Medical History RUQ pain Diarrhea Contusion of right hand Tonsil pain Anxiety Nausea and vomiting Abnormal CT scan Other sprain of left foot, initial encounter Headache Head injury (normal spontaneous vaginal delivery) Toe fracture, right Scoliosis Wrist fracture, left (06/13/19) Anxiety Left wrist sprain Surgical History Surgical History History of removal of skin mole lt temporal, June 2015 Family History Family History Other Diabetes mellitus No pertinent family history Social History Social History Social History: Caffeine-daily Smoking status: Never smoker Tobacco type: e-cigarettes/vaping Second hand tobacco smoke exposure: No Additional smoking assessment comments: Pt and significant other vaped. Significant other also stopped vaping 2-3 Alcohol intake: never Substance use: current Substance use type: marijuana Last use: 12/13/2022 Do You Feel Safe in your Home?: Yes Lack of Transportation: No Lack of Food: Never True Current Housing: I Have Housing Concerned About Future Housing: No Difficulty Paying Gas/Electric Bills: No Difficulty Paying for Meds: No Currently Unemployed: No Education: High School Diploma/GED Difficulty w/ Childcare or Family Care: No Living arrangements: with family Gender identity (if verbalized by the patient): Female Sexual Orientation (if Verbalized by the Patient): Straight or Heterosexual Spiritual care concerns: No Exam 2 Narrative: GENERAL: [Well-appearing, well-nourished, and in no acute distress.] HEAD: [Normocephalic, atraumatic.] EYES: [PERRLA and EOMI.] ENT: Nares clear, no rhinorrhea or epistaxis. Mucous membranes moist. Dental carries in bottom tooth 32, no periapical abscess NECK: Supple. CHEST: No respiratory distress. EXTREMITIES: Normal range of motion. [No edema.] SKIN: Warm, dry, no rash. NEURO: [No focal deficits]. Alert and oriented [x3.] PSYCH: [Normal mood and affect.] Course Vital Signs Vital signs: Vital Signs Temperature 36.5 C 05/26/25 21:50 Pulse Rate 73 05/26/25 21:50 Respiratory Rate 16 05/26/25 21:50 Blood Pressure 119/69 05/26/25 21:50 Pulse Oximetry 100 05/26/25 21:50 Temperature 36.5 C 05/26/25 21:50 Pulse Rate 73 05/26/25 21:50 Respiratory Rate 16 05/26/25 21:50 Blood Pressure 119/69 05/26/25 21:50 Pulse Oximetry 100 05/26/25 21:50 Procedures Nerve Block Nerve Block 1: Nerve block date: 05/26/25 Nerve block time: 23:05 Time out performed: Yes Local Anesthetic: lidocaine 1% and bupivacaine 0.5% Amount of anesthesia used (mL): 3 Side: right Intraoral Nerve Block: inferior alveolar Procedure Successful: Yes Patient Tolerated Procedure: well and no complications Complications: none MDM - Dental/Oral MDM Narrative Medical decision making narrative: 24-year-old otherwise healthy female presenting with pain in her right bottom teeth next to her wisdom teeth. She has had previous wisdom tooth surgery but her doctor and dentist told her that she has a wisdom tooth sitting on top of a nerve and needs an oral surgeon. She is trying to get this scheduled but having pain control issues in the meantime. She is on antibiotics with amoxicillin presently but only been taking ibuprofen and Tylenol without pain control. She states she has had stronger pain medicines in the past that have relieved her symptoms. No traumatic injuries. No difficulty swallowing. No fever, chills or abscess formation. Was otherwise in her normal state of health. Offered patient analgesia options and she would like to go with the nerve block and oral [employer]. Neuro block conducted successfully at bedside. Prescription sent to her pharmacy. Safe for discharge with her dental followups. Medical Records Attestation: I reviewed the patient's medical records. Discharge Plan Discharge Clinical Impression: Dentalgia Patient Disposition: Home Condition: Stable Instructions: Antibiotic Form, Toothache (ED) Additional Instructions: Follow-up with your dentist/ oral surgeon. Return with any emergent concerns. Complete the antibiotics as directed. Take Tylenol ibuprofen for pain control as well as the breakthrough [employer] pain medicines as needed. Patient Language: Italian Prescriptions: New hydrocodone-acetaminophen 5-325 mg tablet 1 tablet PO Q8H PRN (Reason: pain) Qty: 14 0RF No Action amoxicillin 500 mg capsule 500 mg PO Q12H Qty: 20 0RF epinephrine 0.3 mg/0.3 mL auto-injector 0.3 mg subcut Follow-up/Referrals: Deanna,Vika Delarosa, [employer] TECHNICIAN [Primary Care Provider, Unknown] Stand Alone Forms: Work/School Release IP
[2025-05-26] MEDS: HYDROcodone/acetaminophen (*CRX) 7.5-325 MG TABLET 1 TAB PO (22:51)
[2025-05-26] MEDS: LIDOCAINE 2% VISC SOLN 15 ML UDC PO (22:52)
[2025-05-26 23:26] VITALS: BP 124/91; PULSE 86; RESP 18; O2SAT 99
[2025-05-28 11:49] LABS: BEDSIDEPREGUCG Negative (Negative)
== END 2025-05-26 23:27 | disposition home or self-care (01) ==
PROVIDERS: Emergency Provider Student in an Organized Health Care Education/Training Program
DX: K08.89 Other specified disorders of teeth and supporting structures (principal); Z87.891 Personal history of nicotine dependence
CPT/HCPCS: 64400; 81025; 99283; A9270